=== PATIENT | female | born 1930 | race Caucasian/White ===

== ENCOUNTER 2016-11-03 19:58 | Inpatient (IN) | payer MEDICARE, BC ==
[2016-11-03] MEDS ORDERED: cefTRIAXone\\ROCEPHIN 1 GM VIAL ONE (20:50)
[2016-11-03] MEDS ORDERED: Sodium Chloride 0.9% 100 ML ONE (20:50)
[2016-11-03 20:56] LABS: #Lymphocytes 0.9 thou/uL (1.20-3.40); #Monocytes 0.8 thou/uL (0.11-0.59); #Neutrophils 7.9 thou/uL (1.40-6.50); %Basophils 0.1 % (0.0-1.0); %Eosinophils 0.3 % (0.0-10.0); %Lymphocytes 9.1 % (21.0-51.0); %Monocytes 8.3 % (0.0-10.0); Hematocrit 33.1 % (36.0-47.0); Mean Platelet Volume 6.5 fL (7.4-10.4); Red Blood Cell (RBC) Count 3.45 mill/uL (4.20-5.40); White Blood Cell (WBC) Count 9.6 thou/uL (4.8-10.8)
[2016-11-03 21:18] LABS: ALT (SGPT) 20 U/L (8-55); AST (SGOT) 30 U/L (5-34); Alkaline Phosphatase 97 U/L (40-150); Anion Gap 16 mmol/L (10-20); BUN (Urea Nitrogen) 41 mg/dL (9.8-20.1); Bilirubin, Total 0.6 mg/dL (0.2-1.2); Calc. Creatinine Clearance 0 mL/min (70-130); Carbon Dioxide 25 mmol/L (23-31); Chloride 95 mmol/L (98-107); Estimated GFR-MDRD 27; Globulin 3.4 g/dL (2.4-3.5); Lactic Acid - Sepsis 2.1 mmol/L (0.5-2.2)
--- NOTE | 2016-11-03 21:18 | RAD ---
PORTABLE AP CHEST X-RAY 11/03/16 HISTORY: Bronchitis for two days. Dyspnea. Patient diagnosed with pneumonia. COMPARISON: 04/28/16. Dual lead left subclavian cardiac pacemaking device is noted in place. There is a moderate sized rig ht pleural effusion with small left pleural effusion. There is parenchymal area of consolidation ove rlying the right hilar and infrahilar location suggesting pneumonia. Mild increased interstitial den sities are seen at the left lung base which could be related infectious process as well. The cardiac silhouette and pulmonary vasculature are within normal limits. No other interval change. IMPRESSION: 1. Moderate right and small left pleural effusions. 2. Pneumonia right hilar and infrahilar location. Followup to complete resolution is recommende d. 3. Increased interstitial densities left lung base which may also be related to infectious proc ess. POS: JEFFRY
[2016-11-03] MEDS ORDERED: Azithromycin 500 MG VIAL ONE (21:30)
[2016-11-03] MEDS ORDERED: Furosemide 40 MG/4 ML VIAL ONE (21:30)
[2016-11-03] MEDS ORDERED: Acetaminophen 325 MG TAB PO PRN (21:57)
[2016-11-03] MEDS ORDERED: HumaLOG 300 UNITS/3 ML VIAL SC PRN (21:58)
[2016-11-03] MEDS ORDERED: Dextrose 50% Abboject 50 ML SYRINGE SLOW IVP PRN (21:58)
[2016-11-03] MEDS ORDERED: Dextrose 5% in Water 1,000 ML IV PRN (21:58)
[2016-11-03] MEDS ORDERED: Ondansetron HCl/PF 4 MG/2 ML Vial IVP PRN (23:28)
[2016-11-04] MEDS ORDERED: Sodium Chloride 0.9% 10 ML ONE ×2 (00:17→05:27)
[2016-11-04 05:54] LABS: #Lymphocytes 0.8 thou/uL (1.20-3.40); #Monocytes 0.7 thou/uL (0.11-0.59); #Neutrophils 5.3 thou/uL (1.40-6.50); %Basophils 0.2 % (0.0-1.0); %Eosinophils 0.2 % (0.0-10.0); %Lymphocytes 12.1 % (21.0-51.0); %Monocytes 10.6 % (0.0-10.0); Hematocrit 29.5 % (36.0-47.0); Mean Platelet Volume 6.5 fL (7.4-10.4); Red Blood Cell (RBC) Count 3.07 mill/uL (4.20-5.40); White Blood Cell (WBC) Count 6.9 thou/uL (4.8-10.8)
[2016-11-04 06:16] LABS: Troponin I 0.044 ng/mL (< 0.028)
[2016-11-04] MEDS: Furosemide 40 MG/4 ML VIAL SLOW IVP SCH ×2 (06:21→14:15)
[2016-11-04 06:22] LABS: Anion Gap 15 mmol/L (10-20); BUN (Urea Nitrogen) 43 mg/dL (9.8-20.1); Calc. Creatinine Clearance 24 mL/min (70-130); Calcium 8.7 mg/dL (7.8-10.44); Carbon Dioxide 28 mmol/L (23-31); Chloride 94 mmol/L (98-107); Estimated GFR-MDRD 29
--- NOTE | 2016-11-04 06:25 | HP ---
DATE OF ADMISSION: 11/03/2016 CHIEF COMPLAINT: Dyspnea, cough. HISTORY OF PRESENT ILLNESS: The patient is an 86-year-old female with past medical history of diabetes mellitus type 2, hypertension, hyperlipidemia, CHF, arthritis, now came to the ER complaining of cough. Cough started approximately 4-5 days back, positive sputum production and chest congestion also. The patient went to PCP 3 days back and the patient was started on p.o. antibiotics, amoxicillin, but the cough did not get better. The patient was feeling extremely tired and having low-grade fever also. So patient was having nausea and decreased p.o. intake. So patient was taken to outside urgent care. Patient was diagnosed having possible pneumonia, so the patient was transferred here. The patient then complains of generalized chest pain from all the coughing, complains of . Denies any headache. Denies any dizziness. Denies any lightheadedness, complains of chronic lower extremity swelling. Patient also complaints of dyspnea, dyspnea even with minimal exertion also. PAST MEDICAL HISTORY: As per HPI. PAST SURGICAL HISTORY: Rectocele repair, left knee replacement, right knee replacement, pacemaker. SOCIAL HISTORY: Denies smoking, denies alcohol, denies any drugs. FAMILY HISTORY: Positive for heart problems. MEDICATIONS: Reviewed. ALLERGIES: SULFA. REVIEW OF SYSTEMS: Constitutional: Positive for low grade fever, positive for weakness. Eyes: Denies any vision problems. Ears: Denies any hearing loss. Neck: Denies any neck pain. Cardiovascular: Denies any chest pain. Respiratory: Positive for dyspnea. Positive for cough. Positive for chest congestion. Positive for sputum production. Musculoskeletal: Denies any joint deformities. Integumentary: Denies any rash. Cranial nerve system: Denies syncope, denies lightheadedness. Psychiatric: Denies anxiety. All other review of systems are reviewed and are negative. PHYSICAL EXAMINATION: CONSTITUTIONAL/VITAL SIGNS: At the time of H\T\P performed, blood pressure is 150/80, pulse ox 95%, afebrile, respiration of 18. GENERAL: The patient appears comfortable. HEENT: Pupils equal, round reactive. Teeth intact. Tongue is moist. NECK: Supple, no JVD. CARDIOVASCULAR: S1, S2 present. Regular rate and rhythm. No murmurs, no rubs , no gallops. RESPIRATORY SYSTEM: Positive for crackles. Diminished at the bases. Positive for rhonchi. MUSCULOSKELETAL: Positive for edema 1+. NEUROLOGIC: Cranial nerves system: Awake, follows commands. Speech intact. Sensory intact ABDOMEN: Soft, nontender, no guarding, no organomegaly, no masses felt. INTEGUMENT: No rashes seen. PSYCHIATRIC: Mood is appropriate at this time. LABORATORY DATA: At the time of H\T\P performed, white count 9.6, hemoglobin 11.2, platelet count 248. BMP showed sodium 132, potassium 3.9, chloride 95, CO2 of 25, BUN 41, creatinine 1.78, glucose 205. EKG pending. Troponin: Negative. BNP 2356. ASSESSMENT AND PLAN: The patient is an 86-year-old female. 1. Pneumonia. Plan to start patient on broad spectrum antibiotics. Chest x- ray did show some infiltrate. We will go ahead and start patient on IV Rocephin and IV Zithromax. We will monitor the patient closely. 2. Acute fluid overload acute on chronic congestive heart failure, possibly systolic with pleural effusions, start patient on IV diuretics. Plan to monitor the patient closely. Plan to check CT cardiac enzymes and also plan to check 2D echo also. We will go ahead and consult Cardiology. 3. History of hypertension. Monitor blood pressure. Continue blood pressure medications. 4. Chronic kidney disease stage III. Creatinine is slightly close to the baseline. We will monitor creatinine closely. Repeat BMP in a.m. 5. History of hypertension, monitor blood pressures, continue home treatments. 6. History of diabetes type 2, monitor blood sugars. We will do insulin sliding scale. Case was discussed in detail with the patient. Patient is FULL CODE. MTDD
[2016-11-04] MEDS ORDERED: Diabetic Tussin 200 MG/10 ML UDCUP PO PRN (07:30)
[2016-11-04] MEDS ORDERED: Milk Of Magnesia 30 ML UDCUP PO PRN (07:30)
[2016-11-04] MEDS ORDERED: Sodium Chloride 0.65% Nasal 44 ML BOT EA NARE PRN (07:30)
[2016-11-04] MEDS ORDERED: Loratadine 10 MG TAB PO PRN (07:30)
[2016-11-04] MEDS ORDERED: Nitroglycerin 0.4 MG TAB (25 Tab Bottle) SL PRN (07:30)
[2016-11-04] MEDS ORDERED: Mag-Al 1200 mg/1200 mg/30 ML UDCUP PO PRN (07:30)
[2016-11-04] MEDS ORDERED: Ondansetron ODT 4 MG TAB PO PRN (07:30)
[2016-11-04] MEDS ORDERED: Senokot 8.6 MG TAB PO PRN (07:30)
[2016-11-04] MEDS ORDERED: Artificial Tears 18 DROP/0.9 ML EA EYE PRN (07:30)
[2016-11-04] MEDS ORDERED: Temazepam 15 MG CAP PO PRN (07:30)
[2016-11-04] MEDS ORDERED: Chloraseptic Spray 180 ml Bottle PO PRN (07:30)
[2016-11-04] MEDS ORDERED: Loperamide HCl 2 MG CAP PO PRN (07:30)
[2016-11-04] MEDS ORDERED: Eucerin (Mineral Oil/Petrolatum,White) 30 gm Jar TOP PRN (07:30)
[2016-11-04] MEDS ORDERED: HYDROcodone/Acetaminophen 5/325 mg Tablet PO PRN (07:30)
[2016-11-04] MEDS: Pancrelipase DR 12000 1 CAP PO SCH (08:34)
[2016-11-04] MEDS: Cefepime 1 GM in Sodium Chloride 0.9% 100 ML IVPB SCH (08:36)
[2016-11-04] MEDS: Apixaban 5 MG TAB PO SCH ×2 (08:36→20:39)
[2016-11-04] MEDS: Cyanocobalamin (Vitamin B-12) 1,000 MCG TAB PO SCH (08:37)
[2016-11-04] MEDS: guaiFENesin ER 600 MG TAB PO SCH ×2 (08:38→20:40)
[2016-11-04] MEDS: Metoprolol Tartrate 50 MG TAB PO SCH ×2 (08:38→20:39)
[2016-11-04] MEDS: Ferrous Sulfate 325 MG TAB PO SCH ×2 (08:38→20:40)
[2016-11-04] MEDS ORDERED: Non-Formulary Item 1 EACH (Amiodarone Hcl [Amiodarone Hcl] 200 MG) PO SCH (09:00)
[2016-11-04] MEDS ORDERED: Non-Formulary Item 1 EACH (Cyanocobalamin (Vitamin B-12) [Vitamin B12] 5,000 MCG) PO SCH (09:00)
[2016-11-04] MEDS ORDERED: Non-Formulary Item 1 EACH (Apixaban [Eliquis] 2.5 MG) PO SCH (09:00)
[2016-11-04 09:14] VITALS: BMI 22.2
--- NOTE | 2016-11-04 09:17 | PDOC.PN ---
- Subjective Encounter Start Date: 11/04/16 Encounter Start Time: 08:00 -: old records requested/rev Patient seen and examined. No new complaints. No overnight events, less dyspnea , no fever - Objective MAR Reviewed: Yes Vital Signs & Weight: Vital Signs (12 hours) Temp Pulse Resp BP BP BP Pulse Ox 11/04/16 08:35 63 154/70 H 11/04/16 08:31 98.7 F 63 16 154/70 H 95 11/04/16 06:26 95 11/04/16 06:20 73 20 11/04/16 06:18 60 20 167/72 H 92 L 11/04/16 04:44 20 93 L 11/04/16 04:29 93 L 11/04/16 04:00 98.4 F 64 18 141/60 H 93 L 11/04/16 00:19 20 11/03/16 22:40 98.6 F 65 24 H 95 11/03/16 22:35 98.6 F 65 24 H 133/59 L 90 L Weight Admit Weight 141 lb 14.4 oz Weight 141 lb 14.4 oz I&O: 11/03/16 11/04/16 11/05/16 06:59 06:59 06:59 Intake Total 376 Output Total 700 Balance -324 Result Diagrams: 11/04/16 05:14 11/04/16 05:14 Additional Labs: Accuchecks 11/04/16 05:59 POC Glucose 140 H Radiology Reviewed by me: Yes (chest xray) EKG Reviewed by me: Yes Phys Exam - Physical Examination Constitutional: NAD HEENT: PERRLA, moist MMs, sclera anicteric Neck: no JVD, supple Respiratory: no wheezing, no rhonchi basilar rales, reduced air entry Cardiovascular: RRR, no rub SM+ Gastrointestinal: soft, non-tender, no distention, positive bowel sounds Musculoskeletal: no edema, pulses present Neurological: non-focal, normal sensation, moves all 4 limbs Psychiatric: normal affect, A&O x 3 Skin: no rash, normal turgor Dx/Plan (1) Acute on chronic diastolic (congestive) heart failure Code(s): I50.33 - ACUTE ON CHRONIC DIASTOLIC (CONGESTIVE) HEART FAILURE Status : Acute (2) Acute worsening of stage 3 chronic kidney disease Code(s): N18.3 - CHRONIC KIDNEY DISEASE, STAGE 3 (MODERATE) Status: Acute (3) Community acquired bacterial pneumonia Code(s): J15.9 - UNSPECIFIED BACTERIAL PNEUMONIA Status: Acute (4) Demand ischemia Code(s): I24.8 - OTHER FORMS OF ACUTE ISCHEMIC HEART DISEASE Status: Acute (5) Anemia, normocytic normochromic Code(s): D64.9 - ANEMIA, UNSPECIFIED Status: Chronic (6) Chronic anticoagulation Code(s): Z79.01 - FPC (CURRENT) USE OF ANTICOAGULANTS Status: Chronic (7) DM2 (diabetes mellitus, type 2) Status: Chronic (8) Dyslipidemia Code(s): E78.5 - HYPERLIPIDEMIA, UNSPECIFIED Status: Chronic (9) GERD (gastroesophageal reflux disease) Code(s): K21.9 - GASTRO-ESOPHAGEAL REFLUX DISEASE WITHOUT ESOPHAGITIS Status: Chronic (10) HTN (hypertension) Code(s): I10 - ESSENTIAL (PRIMARY) HYPERTENSION Status: Chronic (11) Moderate tricuspid regurgitation by prior echocardiogram Code(s): I07.1 - RHEUMATIC TRICUSPID INSUFFICIENCY Status: Chronic (12) Pulmonary hypertension Code(s): I27.2 - OTHER SECONDARY PULMONARY HYPERTENSION Status: Chronic - Plan cont current plan of care, continue antibiotics, respiratory therapy * continue iv lasix * continue cefepime and levaquin * monitor renal function * cardiology consulted * echo pending * medication reviewed as below * symptomatic treatment Review of Systems - Review of Systems Constitutional: Weakness. negative: Fever, Chills, Sweats, Malaise, Other Respiratory: Cough, Shortness of Breath, SOB with Excertion. negative: Dry, Hemoptysis, Pleuritic Pain, Sputum, Wheezing Cardiovascular: negative: Chest Pain, Palpitations, Orthopnea, Paroxysmal Noc. Dyspnea, Edema, Light Headedness, Other Gastrointestinal: negative: Nausea, Vomiting, Abdominal Pain, Diarrhea, Constipation, Melena, Hematochezia, Other Genitourinary: negative: Dysuria, Frequency, Incontinence, Hematuria, Retention , Other Musculoskeletal: negative: Neck Pain, Shoulder Pain, Arm Pain, Back Pain, Hand Pain, Leg Pain, Foot Pain, Other Skin: negative: Rash, Lesions, Judah, Bruising, Other - Medications/Allergies Allergies/Adverse Reactions: Allergies Allergy/AdvReac Type Severity Reaction Status Date / Time Sulfa (Sulfonamide Allergy Nausea Verified 11/03/16 22:50 Antibiotics) Medications: Current Medications Acetaminophen (Tylenol) 650 mg PO Q4H PRN PRN Reason: Headache/Fever or Pain Hydrocodone Bitart/Acetaminophen ([place] 5/325) 1 tab PO Q4H PRN PRN Reason: Moderate Pain (4-6) Al Hydroxide/Mg Hydroxide (Maalox) 15 ml PO Q4H PRN PRN Reason: Heartburn or Indigestion Albuterol/Ipratropium (Duoneb) 3 ml NEB Q4H PRN PRN Reason: Wheezing Last Admin: 11/04/16 06:20 Dose: 3 ml Albuterol/Ipratropium (Duoneb) 3 ml NEB [id number] [facility] Amiodarone HCl (Cordarone) 200 mg PO DAILY [facility] Last Admin: 11/04/16 08:35 Dose: 200 mg Amlodipine Besylate (Norvasc) 2.5 mg PO DAILY [facility] Last Admin: 11/04/16 08:35 Dose: 2.5 mg Lipase/Protease/[place]ylase ([place] [id number]) 3 cap PO DAILY-AC [facility] Last Admin: 11/04/16 08:34 Dose: 3 cap Apixaban (Eliquis) 2.5 mg PO BID [facility] Last Admin: 11/04/16 08:36 Dose: 2.5 mg Artificial Tears (Tears Naturale) 0 drop EA EYE PRN PRN PRN Reason: Dry Eyes Atorvastatin Calcium (Lipitor) 10 mg PO HS [facility] Cyanocobalamin (Vitamin B-12) 5,000 mcg PO DAILY [facility] Last Admin: 11/04/16 08:37 Dose: 5,000 mcg Dextrose/Water (Dextrose 50%) 25 gm SLOW IVP PRN PRN PRN Reason: Hypoglycemia Ferrous Sulfate (Feosol) 325 mg PO BID [facility] Last Admin: 11/04/16 08:38 Dose: 325 mg Furosemide (Lasix) 40 mg SLOW IVP 0600,1400 [facility] Last Admin: 11/04/16 06:21 Dose: 40 mg Glucagon (Glucagon) 1 mg IM PRN PRN PRN Reason: Hypoglycemia Guaifenesin (Robitussin Sf) 200 mg PO Q4H PRN PRN Reason: Cough Guaifenesin (Mucinex) 600 mg PO Q12HR [facility] Last Admin: 11/04/16 08:38 Dose: 600 mg Hydralazine HCl (Apresoline) 10 mg SLOW IVP Q4H PRN PRN Reason: Systolic BP > 180 Cefepime HCl 1 gm/ Sodium (Chloride) 100 mls @ 200 mls/hr IVPB 0900 [facility] Last Admin: 11/04/16 08:36 Dose: 100 mls Dextrose/Water (D5w) 1,000 mls @ 0 mls/hr IV .Q0M PRN; As Directed PRN Reason: Hypoglycemia Levofloxacin 750 mg/ Device 150 mls @ 100 mls/hr IVPB Q48H [facility] Last Admin: 11/04/16 00:19 Dose: 150 mls Insulin Human Lispro (Humalog) 0 units SC .MODERATE SLIDING SC PRN PRN Reason: Moderate Correctional Scale Insulin Human Lispro (Humalog) 0 units SC .BEDTIME SLIDING SC PRN PRN Reason: Bedtime Correctional Scale Loperamide HCl (Imodium) 2 mg PO PRN PRN PRN Reason: Diarrhea/Loose Stools Loratadine (Claritin) 10 mg PO DAILYPRN PRN PRN Reason: Sinus Symptoms Magnesium Hydroxide (Milk Of Magnesium) 30 ml PO DAILYPRN PRN PRN Reason: Constipation Metoprolol Tartrate (Lopressor) 50 mg PO BID [facility] Last Admin: 11/04/16 08:38 Dose: 50 mg Mineral Oil/White Petrolatum (Eucerin Cream) 0 gm TOP BIDPRN PRN PRN Reason: Dry Skin Nitroglycerin (Nitrostat) 0.4 mg SL Q5MIN PRN PRN Reason: Chest Pain Ondansetron HCl (Zofran) 4 mg IVP Q6H PRN PRN Reason: Nausea/Vomiting Last Admin: 11/04/16 00:18 Dose: 4 mg Ondansetron HCl (Zofran Odt) 4 mg PO Q6H PRN PRN Reason: Nausea/Vomiting Pantoprazole Sodium (Protonix) 40 mg PO DAILY [facility] Last Admin: 11/04/16 08:38 Dose: 40 mg Phenol (Chloraseptic [place] 180 Ml Bot) 0 ml PO PRN PRN PRN Reason: Sore Throat Senna (Senokot) 2 tab PO HSPRN PRN PRN Reason: Constipation Sodium Chloride ([place] Nasal [place] 0.65%) 0 ml EA NARE QIDPRN PRN PRN Reason: Nasal Congestion Sodium Chloride (Flush - Normal Saline) 10 ml IVF Q12HR [facility] Last Admin: 11/04/16 08:39 Dose: 10 ml Sodium Chloride (Flush - Normal Saline) 10 ml IVF PRN PRN PRN Reason: Saline Flush Temazepam (Restoril) 15 mg PO HSPRN PRN PRN Reason: Insomnia
[2016-11-04 10:25] LABS: Troponin I 0.045 ng/mL (< 0.028)
[2016-11-04] MEDS: Atorvastatin Calcium 10 MG TAB PO SCH (20:40)
[2016-11-05] MEDS: Furosemide 40 MG/4 ML VIAL SLOW IVP SCH (05:08)
[2016-11-05 05:43] LABS: #Eosinphils 0.1 thou/uL (0.0-0.7); #Lymphocytes 0.9 thou/uL (1.20-3.40); #Monocytes 0.9 thou/uL (0.11-0.59); #Neutrophils 5.1 thou/uL (1.40-6.50); %Basophils 0.1 % (0.0-1.0); %Eosinophils 1.4 % (0.0-10.0); %Monocytes 12.3 % (0.0-10.0); Hematocrit 29.4 % (36.0-47.0); Mean Platelet Volume 6.5 fL (7.4-10.4); Red Blood Cell (RBC) Count 3.05 mill/uL (4.20-5.40)
[2016-11-05 06:05] LABS: ALT (SGPT) 16 U/L (8-55); AST (SGOT) 25 U/L (5-34); Alkaline Phosphatase 75 U/L (40-150); Anion Gap 14 mmol/L (10-20); BUN (Urea Nitrogen) 46 mg/dL (9.8-20.1); Bilirubin, Total 0.4 mg/dL (0.2-1.2); Calc. Creatinine Clearance 21 mL/min (70-130); Calcium 8.5 mg/dL (7.8-10.44); Carbon Dioxide 29 mmol/L (23-31); Chloride 95 mmol/L (98-107); Estimated GFR-MDRD 25; Globulin 2.8 g/dL (2.4-3.5); Magnesium 1.5 mg/dL (1.6-2.6); Phosphorus 3.8 mg/dL (2.3-4.7); Protein, Total 5.8 g/dL (6.0-8.3)
[2016-11-05] MEDS ORDERED: Potassium Chloride 40 MEQ in Sodium Chloride 0.9% 500 ML IVPB SCH (06:45)
[2016-11-05] MEDS ORDERED: Potassium Chloride 20 MEQ TAB PO SCH (06:45)
[2016-11-05] MEDS: Pancrelipase DR 12000 1 CAP PO SCH (08:14)
[2016-11-05] MEDS: Cefepime 1 GM in Sodium Chloride 0.9% 100 ML IVPB SCH (08:16)
[2016-11-05] MEDS: Apixaban 5 MG TAB PO SCH ×2 (08:16→20:04)
[2016-11-05] MEDS: Cyanocobalamin (Vitamin B-12) 1,000 MCG TAB PO SCH (08:17)
[2016-11-05] MEDS: guaiFENesin ER 600 MG TAB PO SCH ×2 (08:17→20:05)
[2016-11-05] MEDS: Ferrous Sulfate 325 MG TAB PO SCH ×2 (08:17→20:04)
[2016-11-05] MEDS: Metoprolol Tartrate 50 MG TAB PO SCH ×2 (08:17→20:05)
--- NOTE | 2016-11-05 09:42 | PDOC.PN ---
- Subjective Encounter Start Date: 11/05/16 Encounter Start Time: 09:00 Patient seen and examined. No new complaints. No overnight events, pt feels better today - Objective MAR Reviewed: Yes Vital Signs & Weight: Vital Signs (12 hours) Temp Pulse Resp BP BP Pulse Ox 11/05/16 08:15 72 167/71 H 11/05/16 08:01 98.0 F 72 18 167/71 H 94 L 11/05/16 07:20 99 11/05/16 07:18 70 16 11/05/16 04:00 98.0 F 73 16 124/58 L 96 11/05/16 00:40 92 L 11/05/16 00:00 98.2 F 64 16 119/56 L 95 11/04/16 22:36 75 16 92 L Weight Admit Weight 141 lb 6.4 oz Weight 139 lb I&O: 11/04/16 11/05/16 11/06/16 06:59 06:59 06:59 Intake Total 376 940 Output Total 700 1700 Balance -324 -760 Result Diagrams: 11/05/16 04:59 11/05/16 04:59 Additional Labs: Accuchecks 11/05/16 11/04/16 11/04/16 05:51 20:45 16:53 POC Glucose 99 308 H 176 H 11/04/16 11:35 POC Glucose 167 H Radiology Reviewed by me: Yes EKG Reviewed by me: Yes Dx/Plan (1) Acute on chronic diastolic (congestive) heart failure Code(s): I50.33 - ACUTE ON CHRONIC DIASTOLIC (CONGESTIVE) HEART FAILURE Status : Acute (2) Acute worsening of stage 3 chronic kidney disease Code(s): N18.3 - CHRONIC KIDNEY DISEASE, STAGE 3 (MODERATE) Status: Acute (3) Community acquired bacterial pneumonia Code(s): J15.9 - UNSPECIFIED BACTERIAL PNEUMONIA Status: Acute (4) Demand ischemia Code(s): I24.8 - OTHER FORMS OF ACUTE ISCHEMIC HEART DISEASE Status: Acute (5) Anemia, normocytic normochromic Code(s): D64.9 - ANEMIA, UNSPECIFIED Status: Chronic (6) Chronic anticoagulation Code(s): Z79.01 - RETIREMENT (CURRENT) USE OF ANTICOAGULANTS Status: Chronic (7) DM2 (diabetes mellitus, type 2) Status: Chronic (8) Dyslipidemia Code(s): E78.5 - HYPERLIPIDEMIA, UNSPECIFIED Status: Chronic (9) GERD (gastroesophageal reflux disease) Code(s): K21.9 - GASTRO-ESOPHAGEAL REFLUX DISEASE WITHOUT ESOPHAGITIS Status: Chronic (10) HTN (hypertension) Code(s): I10 - ESSENTIAL (PRIMARY) HYPERTENSION Status: Chronic (11) Moderate tricuspid regurgitation by prior echocardiogram Code(s): I07.1 - RHEUMATIC TRICUSPID INSUFFICIENCY Status: Chronic (12) Pulmonary hypertension Code(s): I27.2 - OTHER SECONDARY PULMONARY HYPERTENSION Status: Chronic (13) Hypokalemia Code(s): E87.6 - HYPOKALEMIA Status: Acute - Plan cont current plan of care, continue antibiotics, PT/OT, respiratory therapy * replace potassium today * today will change to po lasix * will monitor renal function * echo pending result * will continue current antibiotics * will repeat chest xray on monday * start PT * wean off oxygen as needed * medication reviewed as below * symptomatic treatment. Review of Systems - Review of Systems Constitutional: negative: Fever, Chills, Sweats, Weakness, Malaise, Other ENT: negative: Ear Pain, Ear Discharge, Nose Pain, Nose Discharge, Nose Congestion, Mouth Pain, Mouth Swelling, Throat Pain, Throat Swelling, Other Respiratory: Shortness of Breath, SOB with Excertion. negative: Cough, Dry, Hemoptysis, Pleuritic Pain, Sputum, Wheezing Cardiovascular: negative: Chest Pain, Palpitations, Orthopnea, Paroxysmal Noc. Dyspnea, Edema, Light Headedness, Other Gastrointestinal: negative: Nausea, Vomiting, Abdominal Pain, Diarrhea, Constipation, Melena, Hematochezia, Other Genitourinary: negative: Dysuria, Frequency, Incontinence, Hematuria, Retention , Other Musculoskeletal: negative: Neck Pain, Shoulder Pain, Arm Pain, Back Pain, Hand Pain, Leg Pain, Foot Pain, Other - Medications/Allergies Allergies/Adverse Reactions: Allergies Allergy/AdvReac Type Severity Reaction Status Date / Time Sulfa (Sulfonamide Allergy Nausea Verified 11/03/16 22:50 Antibiotics) Medications: Current Medications Acetaminophen (Tylenol) 650 mg PO Q4H PRN PRN Reason: Headache/Fever or Pain Hydrocodone Bitart/Acetaminophen ([place] 5/325) 1 tab PO Q4H PRN PRN Reason: Moderate Pain (4-6) Al Hydroxide/Mg Hydroxide (Maalox) 15 ml PO Q4H PRN PRN Reason: Heartburn or Indigestion Albuterol/Ipratropium (Duoneb) 3 ml NEB Q4H PRN PRN Reason: Wheezing Last Admin: 11/04/16 06:20 Dose: 3 ml Albuterol/Ipratropium (Duoneb) 3 ml NEB [id number] [facility] Last Admin: 11/05/16 07:18 Dose: 3 ml Amiodarone HCl (Cordarone) 200 mg PO DAILY [facility] Last Admin: 11/05/16 08:15 Dose: 200 mg Amlodipine Besylate (Norvasc) 2.5 mg PO DAILY [facility] Last Admin: 11/05/16 08:15 Dose: 2.5 mg Lipase/Protease/Amylase ([place] [id number]) 3 cap PO DAILY-[facility] Last Admin: 11/05/16 08:14 Dose: 3 cap Apixaban (Eliquis) 2.5 mg PO BID [facility] Last Admin: 11/05/16 08:16 Dose: 2.5 mg Artificial Tears (Tears Naturale) 0 drop EA EYE PRN PRN PRN Reason: Dry Eyes Atorvastatin Calcium (Lipitor) 10 mg PO HS [facility] Last Admin: 11/04/16 20:40 Dose: 10 mg Cyanocobalamin (Vitamin B-12) 5,000 mcg PO DAILY [facility] Last Admin: 11/05/16 08:17 Dose: 5,000 mcg Dextrose/Water (Dextrose 50%) 25 gm SLOW IVP PRN PRN PRN Reason: Hypoglycemia Ferrous Sulfate (Feosol) 325 mg PO BID [facility] Last Admin: 11/05/16 08:17 Dose: 325 mg Furosemide (Lasix) 40 mg PO DAILY-[facility] Glucagon (Glucagon) 1 mg IM PRN PRN PRN Reason: Hypoglycemia Guaifenesin (Robitussin Sf) 200 mg PO Q4H PRN PRN Reason: Cough Guaifenesin (Mucinex) 600 mg PO Q12HR [facility] Last Admin: 11/05/16 08:17 Dose: 600 mg Hydralazine HCl (Apresoline) 10 mg SLOW IVP Q4H PRN PRN Reason: Systolic BP > 180 Cefepime HCl 1 gm/ Sodium (Chloride) 100 mls @ 200 mls/hr IVPB 0900 [facility] Last Admin: 11/05/16 08:16 Dose: 100 mls Dextrose/Water (D5w) 1,000 mls @ 0 mls/hr IV .Q0M PRN; As Directed PRN Reason: Hypoglycemia Levofloxacin 750 mg/ Device 150 mls @ 100 mls/hr IVPB Q48H [facility] Last Admin: 11/04/16 00:19 Dose: 150 mls Potassium Chloride 40 meq/ (Sodium Chloride) 520 mls @ 130 mls/hr IVPB NOW [facility] Stop: 11/05/16 12:00 Last Admin: 11/05/16 07:22 Dose: 520 mls Insulin Human Lispro (Humalog) 0 units SC .MODERATE SLIDING SC PRN PRN Reason: Moderate Correctional Scale Insulin Human Lispro (Humalog) 0 units SC .BEDTIME SLIDING SC PRN PRN Reason: Bedtime Correctional Scale Last Admin: 11/04/16 21:18 Dose: 4 unit Loperamide HCl (Imodium) 2 mg PO PRN PRN PRN Reason: Diarrhea/Loose Stools Loratadine (Claritin) 10 mg PO DAILYPRN PRN PRN Reason: Sinus Symptoms Magnesium Hydroxide (Milk Of Magnesium) 30 ml PO DAILYPRN PRN PRN Reason: Constipation Metoprolol Tartrate (Lopressor) 50 mg PO BID [facility] Last Admin: 11/05/16 08:17 Dose: 50 mg Mineral Oil/White Petrolatum (Eucerin Cream) 0 gm TOP BIDPRN PRN PRN Reason: Dry Skin Nitroglycerin (Nitrostat) 0.4 mg SL Q5MIN PRN PRN Reason: Chest Pain Ondansetron HCl (Zofran) 4 mg IVP Q6H PRN PRN Reason: Nausea/Vomiting Last Admin: 11/04/16 00:18 Dose: 4 mg Ondansetron HCl (Zofran Odt) 4 mg PO Q6H PRN PRN Reason: Nausea/Vomiting Pantoprazole Sodium (Protonix) 40 mg PO DAILY [facility] Last Admin: 11/05/16 08:17 Dose: 40 mg Phenol (Chloraseptic [place] 180 Ml Bot) 0 ml PO PRN PRN PRN Reason: Sore Throat Senna (Senokot) 2 tab PO HSPRN PRN PRN Reason: Constipation Sodium Chloride ([place] Nasal [place] 0.65%) 0 ml EA NARE QIDPRN PRN PRN Reason: Nasal Congestion Sodium Chloride (Flush - Normal Saline) 10 ml IVF Q12HR [facility] Last Admin: 11/05/16 08:17 Dose: Not Given Sodium Chloride (Flush - Normal Saline) 10 ml IVF PRN PRN PRN Reason: Saline Flush Temazepam (Restoril) 15 mg PO HSPRN PRN PRN Reason: Insomnia
[2016-11-05] MEDS: HumaLOG 300 UNITS/3 ML VIAL SC PRN (12:26)
--- NOTE | 2016-11-05 18:11 | PDOC.CTH ---
Cardiology Progress Note - Subjective Much better since admission. No CV complaints today. Denies dyspnea. Tolerating meds. Anxious to return home this weekend. ROS otherwise negative. - Objective Vital Signs Temp Pulse Pulse Pulse Resp BP BP 11/05/16 16:25 98.6 F 73 16 11/05/16 14:19 74 16 11/05/16 11:14 98.0 F 64 16 11/05/16 10:44 73 86 170/72 H 11/05/16 08:15 72 167/71 H 11/05/16 08:01 98.0 F 72 18 11/05/16 07:20 11/05/16 07:18 70 16 BP BP Pulse Ox Pulse Ox Pulse Ox 11/05/16 16:25 152/68 H 97 11/05/16 14:19 11/05/16 11:14 184/73 H 94 L 11/05/16 10:44 196/77 H 92 L 97 11/05/16 08:15 11/05/16 08:01 167/71 H 94 L 11/05/16 07:20 99 11/05/16 07:18 Admit Weight 141 lb 6.4 oz Weight 139 lb 11/04/16 11/05/16 11/06/16 06:59 06:59 06:59 Intake Total 376 940 Output Total 700 1700 Balance -324 -760 - Physical Examination General/Neuro: alert & oriented x3, NAD Neck: carotid US brisk, no JVD present Lungs: CTA, unlabored respirations Heart: PMI normal, RRR Abdomen: no HSM, NT/ND, soft Extremities: other: (2+ pulses, no edema) Other PE findings: Neuro: no focal motor defs - Telemetry Telemetry Rhythm: sinus rhythm - Labs Result Diagrams: 11/05/16 04:59 11/05/16 04:59 Troponin/CKMB Troponin I 0.045 ng/mL (< 0.028) H 11/04/16 09:51 - Assessment/Plan 1. CAP: improved on abx. Continue as recommended by primary service. 2. CHF, acute/chronic diastolic: stable. Appears dry. Will adjust diuretics accordingly. Monitor lytes/renal function. 3. PAF: stable on amiodarone. Continue at current dose with anticoagulation.
[2016-11-05] MEDS: Atorvastatin Calcium 10 MG TAB PO SCH (20:04)
[2016-11-06] MEDS: Pancrelipase DR 12000 1 CAP PO SCH (08:24)
[2016-11-06] MEDS: Cyanocobalamin (Vitamin B-12) 1,000 MCG TAB PO SCH (08:24)
[2016-11-06] MEDS: Metoprolol Tartrate 50 MG TAB PO SCH ×2 (08:25→20:50)
[2016-11-06] MEDS: Furosemide 40 MG TAB PO SCH (08:25)
[2016-11-06] MEDS: Apixaban 5 MG TAB PO SCH ×2 (08:25→20:50)
[2016-11-06] MEDS: Ferrous Sulfate 325 MG TAB PO SCH ×2 (08:26→20:50)
[2016-11-06] MEDS: guaiFENesin ER 600 MG TAB PO SCH ×2 (08:26→20:50)
[2016-11-06] MEDS: Cefepime 1 GM in Sodium Chloride 0.9% 100 ML IVPB SCH (08:26)
--- NOTE | 2016-11-06 10:27 | PDOC.PN ---
- Subjective Encounter Start Date: 11/06/16 Encounter Start Time: 07:50 -: old records requested/rev Patient seen and examined. No new complaints. No overnight events - Objective MAR Reviewed: Yes Vital Signs & Weight: Vital Signs (12 hours) Temp Pulse Resp BP BP Pulse Ox 11/06/16 08:26 63 11/06/16 08:18 97.9 F 63 14 163/70 H 93 L 11/06/16 06:58 99 11/06/16 06:56 71 20 11/06/16 04:00 97.6 F 60 18 141/65 H 97 11/05/16 23:53 99.0 F 60 18 133/63 94 L 11/05/16 23:17 94 L 11/05/16 23:16 73 16 94 L Weight Admit Weight 141 lb 6.4 oz Weight 138 lb 1.6 oz I&O: 11/05/16 11/06/16 11/07/16 06:59 06:59 06:59 Intake Total 940 1980 Output Total 1700 1820 Balance -760 160 Result Diagrams: 11/05/16 04:59 11/05/16 04:59 Additional Labs: Accuchecks 11/06/16 11/05/16 11/05/16 05:20 20:51 16:41 POC Glucose 147 H 188 H 126 H 11/05/16 11:19 POC Glucose 217 H Phys Exam - Physical Examination Constitutional: NAD HEENT: PERRLA, moist MMs, sclera anicteric Neck: no JVD, supple Respiratory: no wheezing, no rales, no rhonchi Cardiovascular: RRR, no significant murmur, no rub Gastrointestinal: soft, non-tender, no distention, positive bowel sounds Musculoskeletal: no edema, pulses present Neurological: non-focal, normal sensation Psychiatric: normal affect, A&O x 3 Skin: no rash, normal turgor Dx/Plan (1) Acute on chronic diastolic (congestive) heart failure Code(s): I50.33 - ACUTE ON CHRONIC DIASTOLIC (CONGESTIVE) HEART FAILURE Status : Acute (2) Acute worsening of stage 3 chronic kidney disease Code(s): N18.3 - CHRONIC KIDNEY DISEASE, STAGE 3 (MODERATE) Status: Acute (3) Community acquired bacterial pneumonia Code(s): J15.9 - UNSPECIFIED BACTERIAL PNEUMONIA Status: Acute (4) Demand ischemia Code(s): I24.8 - OTHER FORMS OF ACUTE ISCHEMIC HEART DISEASE Status: Acute (5) Anemia, normocytic normochromic Code(s): D64.9 - ANEMIA, UNSPECIFIED Status: Chronic (6) Chronic anticoagulation Code(s): Z79.01 - CARE HOME (CURRENT) USE OF ANTICOAGULANTS Status: Chronic (7) DM2 (diabetes mellitus, type 2) Status: Chronic (8) Dyslipidemia Code(s): E78.5 - HYPERLIPIDEMIA, UNSPECIFIED Status: Chronic (9) GERD (gastroesophageal reflux disease) Code(s): K21.9 - GASTRO-ESOPHAGEAL REFLUX DISEASE WITHOUT ESOPHAGITIS Status: Chronic (10) HTN (hypertension) Code(s): I10 - ESSENTIAL (PRIMARY) HYPERTENSION Status: Chronic (11) 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 * will repeat chest xray tomorrow * she may need snu on discharge Review of Systems - Review of Systems ENT: negative: Ear Pain, Ear Discharge, Nose Pain, Nose Discharge, Nose Congestion, Mouth Pain, Mouth Swelling, Throat Pain, Throat Swelling, Other Respiratory: negative: Cough, Dry, Shortness of Breath, Hemoptysis, SOB with Excertion, Pleuritic Pain, Sputum, Wheezing Cardiovascular: negative: Chest Pain, Palpitations, Orthopnea, Paroxysmal Noc. Dyspnea, Edema, Light Headedness, Other Gastrointestinal: negative: Nausea, Vomiting, Abdominal Pain, Diarrhea, Constipation, Melena, Hematochezia, Other Genitourinary: negative: Dysuria, Frequency, Incontinence, Hematuria, Retention , Other Musculoskeletal: negative: Neck Pain, Shoulder Pain, Arm Pain, Back Pain, Hand Pain, Leg Pain, Foot Pain, Other - Medications/Allergies Allergies/Adverse Reactions: Allergies Allergy/AdvReac Type Severity Reaction Status Date / Time Sulfa (Sulfonamide Allergy Nausea Verified 11/03/16 22:50 Antibiotics) Medications: Current Medications Acetaminophen (Tylenol) 650 mg PO Q4H PRN PRN Reason: Headache/Fever or Pain Hydrocodone Bitart/Acetaminophen ([place] 5/325) 1 tab PO Q4H PRN PRN Reason: Moderate Pain (4-6) Al Hydroxide/Mg Hydroxide (Maalox) 15 ml PO Q4H PRN PRN Reason: Heartburn or Indigestion Albuterol/Ipratropium (Duoneb) 3 ml NEB Q4H PRN PRN Reason: Wheezing Last Admin: 11/04/16 06:20 Dose: 3 ml Albuterol/Ipratropium (Duoneb) 3 ml NEB [id number] [facility] Last Admin: 11/06/16 06:56 Dose: 3 ml Amiodarone HCl (Cordarone) 200 mg PO DAILY [facility] Last Admin: 11/06/16 08:25 Dose: 200 mg Amlodipine Besylate (Norvasc) 2.5 mg PO DAILY [facility] Last Admin: 11/06/16 08:26 Dose: 2.5 mg Lipase/Protease/[place]ylase ([place] [id number]) 3 cap PO DAILY-[facility] Last Admin: 11/06/16 08:24 Dose: 3 cap Apixaban (Eliquis) 2.5 mg PO BID [facility] Last Admin: 11/06/16 08:25 Dose: 2.5 mg Artificial Tears (Tears Naturale) 0 drop EA EYE PRN PRN PRN Reason: Dry Eyes Atorvastatin Calcium (Lipitor) 10 mg PO HS [facility] Last Admin: 11/05/16 20:04 Dose: 10 mg Cyanocobalamin (Vitamin B-12) 5,000 mcg PO DAILY [facility] Last Admin: 11/06/16 08:24 Dose: 5,000 mcg Dextrose/Water (Dextrose 50%) 25 gm SLOW IVP PRN PRN PRN Reason: Hypoglycemia Ferrous Sulfate (Feosol) 325 mg PO BID [facility] Last Admin: 11/06/16 08:26 Dose: 325 mg Furosemide (Lasix) 40 mg PO DAILY-[facility] Last Admin: 11/06/16 08:25 Dose: 40 mg Glucagon (Glucagon) 1 mg IM PRN PRN PRN Reason: Hypoglycemia Guaifenesin (Robitussin Sf) 200 mg PO Q4H PRN PRN Reason: Cough Guaifenesin (Mucinex) 600 mg PO Q12HR [facility] Last Admin: 11/06/16 08:26 Dose: 600 mg Hydralazine HCl (Apresoline) 10 mg SLOW IVP Q4H PRN PRN Reason: Systolic BP > 180 Cefepime HCl 1 gm/ Sodium (Chloride) 100 mls @ 200 mls/hr IVPB 0900 [facility] Last Admin: 11/06/16 08:26 Dose: 100 mls Dextrose/Water (D5w) 1,000 mls @ 0 mls/hr IV .Q0M PRN; As Directed PRN Reason: Hypoglycemia Levofloxacin 750 mg/ Device 150 mls @ 100 mls/hr IVPB Q48H [facility] Last Admin: 11/05/16 23:14 Dose: 150 mls Insulin Human Lispro (Humalog) 0 units SC .MODERATE SLIDING SC PRN PRN Reason: Moderate Correctional Scale Last Admin: 11/05/16 12:26 Dose: 4 units Insulin Human Lispro (Humalog) 0 units SC .BEDTIME SLIDING SC PRN PRN Reason: Bedtime Correctional Scale Last Admin: 11/04/16 21:18 Dose: 4 unit Loperamide HCl (Imodium) 2 mg PO PRN PRN PRN Reason: Diarrhea/Loose Stools Loratadine (Claritin) 10 mg PO DAILYPRN PRN PRN Reason: Sinus Symptoms Magnesium Hydroxide (Milk Of Magnesium) 30 ml PO DAILYPRN PRN PRN Reason: Constipation Metoprolol Tartrate (Lopressor) 50 mg PO BID [facility] Last Admin: 11/06/16 08:25 Dose: 50 mg Mineral Oil/White Petrolatum (Eucerin Cream) 0 gm TOP BIDPRN PRN PRN Reason: Dry Skin Nitroglycerin (Nitrostat) 0.4 mg SL Q5MIN PRN PRN Reason: Chest Pain Ondansetron HCl (Zofran) 4 mg IVP Q6H PRN PRN Reason: Nausea/Vomiting Last Admin: 11/04/16 00:18 Dose: 4 mg Ondansetron HCl (Zofran Odt) 4 mg PO Q6H PRN PRN Reason: Nausea/Vomiting Pantoprazole Sodium (Protonix) 40 mg PO DAILY [facility] Last Admin: 11/06/16 08:25 Dose: 40 mg Phenol (Chloraseptic Barrett 180 Ml Bot) 0 ml PO PRN PRN PRN Reason: Sore Throat Pneumococcal Polyvalent Vaccine (Pneumovax 23) 0.5 ml IM .ONCE ONE Stop: 11/06/16 21:01 Senna (Senokot) 2 tab PO HSPRN PRN PRN Reason: Constipation Sodium Chloride ([place] Nasal Barrett 0.65%) 0 ml EA NARE QIDPRN PRN PRN Reason: Nasal Congestion Sodium Chloride (Flush - Normal Saline) 10 ml IVF Q12HR [facility] Last Admin: 11/06/16 08:27 Dose: 10 ml Sodium Chloride (Flush - Normal Saline) 10 ml IVF PRN PRN PRN Reason: Saline Flush Temazepam (Restoril) 15 mg PO HSPRN PRN PRN Reason: Insomnia
[2016-11-06] MEDS: HumaLOG 300 UNITS/3 ML VIAL SC PRN (12:29)
[2016-11-06] MEDS: Atorvastatin Calcium 10 MG TAB PO SCH (20:50)
[2016-11-06] MEDS ORDERED: FLU VACC TS2017-18 (>65YR) 0.5 ML SYRINGE IM ONE (21:00)
[2016-11-07] MEDS: Cyanocobalamin (Vitamin B-12) 1,000 MCG TAB PO SCH (08:15)
[2016-11-07] MEDS: Pancrelipase DR 12000 1 CAP PO SCH (08:16)
[2016-11-07] MEDS: Ferrous Sulfate 325 MG TAB PO SCH ×2 (08:16→22:15)
[2016-11-07] MEDS: Apixaban 5 MG TAB PO SCH ×2 (08:16→22:14)
[2016-11-07] MEDS: Furosemide 40 MG TAB PO SCH (08:16)
[2016-11-07] MEDS: Metoprolol Tartrate 50 MG TAB PO SCH ×2 (08:17→22:15)
[2016-11-07] MEDS: guaiFENesin ER 600 MG TAB PO SCH ×2 (08:17→22:15)
[2016-11-07] MEDS: Cefepime 1 GM in Sodium Chloride 0.9% 100 ML IVPB SCH (08:18)
--- NOTE | 2016-11-07 08:23 | RAD ---
PA AND LATERAL CHEST XRAY: DATE: 11/07/16. HISTORY: Pneumonia. [place] 11/03/16. FINDINGS: There is a moderately large right pleural effusion which does appear mildly increased from the prior study. Small left pleural effusion and atelectasis is present. The parenchymal and interstitial o pacities at the right lung base are less well delineated, some of which could be related to obscurat ion due to the moderately large right pleural effusion. Interstitial densities at the left lung bas e and the left mid lung zone have mildly improved. There has also been interval improvement in pulm onary vascular congestion. Right cardiac border is obscured. Dual-lead left subclavian cardiac pac emaking device remains in place. No other interval change. IMPRESSION: 1. Moderately large right pleural effusion with small left pleural effusion and associated passive atelectasis. The parenchymal opacities in the right hilar and infrahilar region are not seen and ma y be partially obscured due to interval enlargement of the right pleural effusion. 2. Improvement in pulmonary vascular congestion and interstitial densities at the left lung base. POS: JEFFRY
--- NOTE | 2016-11-07 08:36 | PDOC.PN ---
- Subjective Encounter Start Date: 11/07/16 Encounter Start Time: 08:29 Subjective: no sob, or chest pain - Objective MAR Reviewed: Yes Vital Signs & Weight: Vital Signs (12 hours) Temp Pulse Resp BP Pulse Ox 11/07/16 07:11 79 16 97 11/07/16 04:00 98.2 F 63 18 146/68 H 93 L 11/07/16 00:00 97.7 F 63 18 167/69 H 93 L 11/06/16 23:08 93 L 11/06/16 23:07 93 L 11/06/16 21:00 97.9 F 66 20 172/74 H 93 L Weight Admit Weight 141 lb 6.4 oz Weight 137 lb 4.8 oz I&O: 11/06/16 11/07/16 11/08/16 06:59 06:59 06:59 Intake Total 1980 1060 Output Total 1820 1700 Balance 160 -640 Result Diagrams: 11/05/16 04:59 11/05/16 04:59 Additional Labs: Accuchecks 11/07/16 11/06/16 11/06/16 06:10 20:41 16:56 POC Glucose 151 H 207 H 158 H 11/06/16 11:07 POC Glucose 242 H Radiology Reviewed by me: Yes (cxr- bilat pleural effusions, improved aeration) Phys Exam - Physical Examination Constitutional: NAD Neck: no JVD good aeration, scattered rales Cardiovascular: RRR, no significant murmur Gastrointestinal: soft, positive bowel sounds Musculoskeletal: no edema Dx/Plan (1) Acute on chronic diastolic (congestive) heart failure Code(s): I50.33 - ACUTE ON CHRONIC DIASTOLIC (CONGESTIVE) HEART FAILURE Status : Acute (2) Acute worsening of stage 3 chronic kidney disease Code(s): N18.3 - CHRONIC KIDNEY DISEASE, STAGE 3 (MODERATE) Status: Acute (3) Community acquired bacterial pneumonia Code(s): J15.9 - UNSPECIFIED BACTERIAL PNEUMONIA Status: Acute (4) Demand ischemia Code(s): I24.8 - OTHER FORMS OF ACUTE ISCHEMIC HEART DISEASE Status: Acute (5) Hypokalemia Code(s): E87.6 - HYPOKALEMIA Status: Acute (6) Anemia, normocytic normochromic Code(s): D64.9 - ANEMIA, UNSPECIFIED Status: Chronic (7) Chronic anticoagulation Code(s): Z79.01 - USP (CURRENT) USE OF ANTICOAGULANTS Status: Chronic (8) DM2 (diabetes mellitus, type 2) Status: Chronic Qualifiers: Diabetes mellitus complication status: with kidney complications Diabetes mellitus complication detail: with chronic kidney disease Chronic kidney disease stage: stage 3 (moderate) (9) Dyslipidemia Code(s): E78.5 - HYPERLIPIDEMIA, UNSPECIFIED Status: Chronic (10) GERD (gastroesophageal reflux disease) Code(s): K21.9 - GASTRO-ESOPHAGEAL REFLUX DISEASE WITHOUT ESOPHAGITIS Status: Chronic (11) HTN (hypertension) Code(s): I10 - ESSENTIAL (PRIMARY) HYPERTENSION Status: Chronic (12) Moderate tricuspid regurgitation by prior echocardiogram Code(s): I07.1 - RHEUMATIC TRICUSPID INSUFFICIENCY Status: Chronic (13) Pulmonary hypertension Code(s): I27.2 - OTHER SECONDARY PULMONARY HYPERTENSION Status: Chronic - Plan DC IV antibx, start omnicef po -: check BMP -: discuss with cardiology * .
[2016-11-07 09:35] LABS: Anion Gap 16 mmol/L (10-20); BUN (Urea Nitrogen) 41 mg/dL (9.8-20.1); Calc. Creatinine Clearance 20 mL/min (70-130); Calcium 8.9 mg/dL (7.8-10.44); Carbon Dioxide 25 mmol/L (23-31); Chloride 97 mmol/L (98-107); Estimated GFR-MDRD 23
[2016-11-07] MEDS: Cefdinir 300 MG CAP PO SCH ×2 (10:00→22:15)
[2016-11-07] MEDS: HumaLOG 300 UNITS/3 ML VIAL SC PRN (12:31)
[2016-11-07] MEDS: Atorvastatin Calcium 10 MG TAB PO SCH (22:15)
--- NOTE | 2016-11-08 08:31 | CON ---
DATE OF CONSULTATION: 11/04/2016 REASON FOR CONSULTATION: Shortness of breath and recent diagnosis of pneumonia. REFERRING PROVIDER: Dr. Toussaint. HISTORY OF PRESENT ILLNESS: Ms. Fisher is a very pleasant 86-year-old woman who I have seen and desiree luated in the past. She has a history of diabetes mellitus, hypertension, hyperlipidemia, and previ ous tobacco abuse. She recently presented with shortness of breath. She has had cough with mild santo bjective fevers. She was recently diagnosed with pneumonia and transferred to [place] for furthe r recommendation. PAST MEDICAL HISTORY: As above including diastolic heart failure. PAST SURGICAL HISTORY: Rectocele repair, left knee surgery, right knee surgery, pacemaker implantat ion. FAMILY HISTORY: Positive for CAD. ALLERGIES: SULFA. HOME MEDICATIONS: Include Nexium, losartan, Lasix, Eliquis, amiodarone, insulin, atorvastatin, iron sulfate, amlodipine, metoprolol, and lipase. REVIEW OF SYSTEMS: Ten-point review of systems is reviewed and as above, otherwise negative. PHYSICAL EXAMINATION: GENERAL: Patient is a pleasant female who is in no acute distress. The patient appears her stated age. VITAL SIGNS: Blood pressure 154/70, pulse 63, temperature 97.8. NEUROLOGIC: The patient is alert and oriented times 3 with no focal neurologic deficits. HEENT: Sclerae without icterus. Mouth has moist mucous membranes with normal pallor. NECK: No JVD. Carotid upstroke brisk. No bruits bilaterally. LUNGS: Decreased breath sounds noted bilaterally. BACK: No scoliosis or kyphosis. CARDIAC: Regular rate and rhythm with normal S1 and S2. No S3 or S4 noted. No significant rubs, m urmurs, thrills, or gallops noted throughout the precordium. PMI is not displaced. There is no par asternal heave. ABDOMEN: Soft, nontender, nondistended. No peritoneal signs present. No hepatosplenomegaly. No a bnormal striae. EXTREMITIES: A 2+ femoral and 2+ dorsalis pedis pulses. No cyanosis, clubbing, or edema. SKIN: No gross abnormalities. IMAGING: Recent echo Doppler shows LVEF 50%-55% with restrictive pattern, pacemaker I believe not n oted. Moderate TR, MR, PI with moderate size pleural effusion. PERTINENT LABORATORY DATA: Hemoglobin 10.2, creatinine 1.68 with a GFR of 29. IMPRESSION: 1. Pneumonia. 2. Acute on chronic diastolic heart failure. RECOMMENDATIONS: At this point, I would continue to treat appropriately with antibiotic therapy. [place] gr will diurese given pleural effusions noted on chest x-ray and on recent echo. She has diuresed an d already she states her status is improved. I would continue to watch closely and watch her creati nine. If her troponin is in the indeterminate range, we will continue conservative therapy given co morbidities.
[2016-11-08] MEDS: Cefdinir 300 MG CAP PO SCH (08:49)
[2016-11-08] MEDS: Pancrelipase DR 12000 1 CAP PO SCH (08:49)
[2016-11-08] MEDS: Apixaban 5 MG TAB PO SCH (08:49)
[2016-11-08] MEDS: Cyanocobalamin (Vitamin B-12) 1,000 MCG TAB PO SCH (08:49)
[2016-11-08] MEDS: Metoprolol Tartrate 50 MG TAB PO SCH (08:50)
[2016-11-08] MEDS: guaiFENesin ER 600 MG TAB PO SCH (08:50)
[2016-11-08] MEDS: Furosemide 40 MG TAB PO SCH (08:50)
[2016-11-08] MEDS: Ferrous Sulfate 325 MG TAB PO SCH (08:51)
[2016-11-08] MEDS: HumaLOG 300 UNITS/3 ML VIAL SC PRN (08:52)
--- NOTE | 2016-11-08 08:56 | PRG ---
DATE OF SERVICE: 11/08/2016 Ms. Fisher is doing well. No chest pain or pressure noted. Her shortness of breath is improved. S he is back to her baseline. PHYSICAL EXAMINATION: VITAL SIGNS: Blood pressure 106/69, pulse 67, temperature 98.2. LUNGS: Clear to auscultation. CARDIAC: Regular rate and rhythm. ABDOMEN: Soft, nontender, nondistended. EXTREMITIES: No edema. IMPRESSION: 1. Acute on chronic diastolic heart failure. 2. ? Pneumonia. 3. Status post pacemaker. RECOMMENDATIONS: Ms. Fisher appears back to her baseline. Would continue current medical therapy i ncluding amiodarone low dose in addition to the Eliquis and atorvastatin. We will leave antibiotic therapy at the discretion of the primary team. From my standpoint, it would be okay for discharge h ome with close outpatient followup.
--- NOTE | 2016-11-08 09:29 | DIS ---
TRANSFER OF CARE NOTE DATE OF ADMISSION: 11/03/2016 DATE OF DISCHARGE: 11/08/2016 DISCHARGE DISPOSITION: Home. PRIMARY CARE PROVIDER: Dr. Suleiman Croft FINAL DIAGNOSES: 1. Pneumonia. 2. Acute on chronic diastolic heart failure. 3. Coronary artery disease. 4. Hypertension. 5. Chronic anticoagulation. 6. Diabetes mellitus type 2. 7. Dyslipidemia. 8. Demand ischemia. 9. Acute on chronic kidney disease. DISCHARGE MEDICATIONS: Eliquis 2.5 mg twice a day, amiodarone 200 mg a day, insulin Glargine 10 un its subcutaneous daily, Lipitor 10 mg at bedtime, ferrous sulfate 65 mg twice daily, metoprolol 50 m g a day, amlodipine 2.5 mg a day, Lasix 40 mg a day, Omnicef 300 mg p.o. b.i.d., Nexium 20 mg a day. ALLERGIES: SULFA ANTIBIOTICS. PENDING AT THE TIME OF DISCHARGE: Blood cultures were negative since 11/03/2016. CODE STATUS: Full. HOSPITAL COURSE: [facility] with shor tness of breath and cough. Initial laboratory: White count 9.6, hemoglobin 11.2, platelet count 24 8,000. Sodium 132, potassium 3.9, BUN 41, creatinine 1.78. BNP 2356, blood cultures were obtained. The chest x-ray was equivocal whether it was pneumonia, heart failure or both. She was started on IV Rocephin and IV Zithromax. She was also found to have acute on chronic heart failure, was start ed on diuresis. Consultation was obtained with Cardiology, Dr. Bautista Naranjo. She had no proce dures. She improved dramatically during her hospital stay. At this time, her vital signs are pulse 64, respirations 18, blood pressure 146/65. Chest is clear. Heart had a regular rate and rhythm. Her blood sugars running in the 150-200 range. Her creatinine has remained somewhat adverse to previous and now she has chronic kidney disease stage 4. During h er hospital stay her Lasix was increased from 20 mg a day to 40 mg a day. Other medicines were cont inued. The Rocephin and Zithromax was transitioned to Omnicef. A prescription has been written for 7 more days of Omnicef and the new dose of Lasix. At time of discharge, she is doing well and sam zara of going home. She has been requested to see her PCP, Dr. Suleiman Croft in 7 days.
--- NOTE | 2016-11-08 09:47 | PRG ---
DATE OF SERVICE: 11/07/2016 SUBJECTIVE: Ms. Fisher is doing well. She states she did very well over the weekend. She states s he is back to her baseline and is ready to go home. PHYSICAL EXAMINATION: VITAL SIGNS: Blood pressure 164/69, pulse 67, temperature 97.2. LUNGS: Decreased breath sounds and now although improved. CARDIAC: Regular rate and rhythm with no new rubs, murmurs, thrills or gallops. PMI is not displac ed. ABDOMEN: Soft, nontender, and nondistended. No hepatosplenomegaly. EXTREMITIES: No significant edema noted bilaterally. PERTINENT LABORATORY DATA: Creatinine 2.01, which is up from 1.68. IMPRESSION: 1. Acute on chronic diastolic heart failure. 2. Restrictive physiology. 3. Pneumonia. RECOMMENDATIONS: From a clinical standpoint, Ms. Fisher has improved. She has been on Lasix and ap pears to be somewhat prerenal given creatinine of 2.0. May add back some fluids to see if her creat inine improves. Otherwise, from a CV standpoint would continue Eliquis as prescribed in addition to low dose amiodarone therapy and Lipitor. She is also on metoprolol.
[2016-11-08 12:25] VITALS: BP 162/70; TEMP 97.4
--- NOTE | 2016-11-12 13:52 | EKG ---
Test Reason : CHF Blood Pressure : / mmHG Vent. Rate : 060 BPM Atrial Rate : 211 BPM P-R Int : 000 ms QRS Dur : 204 ms QT Int : 548 ms P-R-T Axes : 000 -63 101 degrees QTc Int : 548 ms Ventricular-paced rhythm Abnormal ECG Confirmed by LUKE ANAYA, GREGORIA Eugene ([id number]), business editor AKHIL BENITEZ ([id number]) on 11/12/2016 1:52:14 PM Referred By: Confirmed By:GREGORIA BUTLER MD
== END 2016-11-08 12:51 | disposition home or self-care (01) | DRG 291 ==
LOC: ERS 19:58 → 2NO 21:30
PROVIDERS: ADMIT Internal Medicine; ATTEND Internal Medicine
DX: I13.0 Hypertensive heart and chronic kidney disease with heart failure and stage 1 through stage 4 chronic kidney disease, or unspecified chronic kidney disease (principal); I50.33 Acute on chronic diastolic (congestive) heart failure; J15.9 Unspecified bacterial pneumonia; N17.9 Acute kidney failure, unspecified; I24.8 Other forms of acute ischemic heart disease; E11.22 Type 2 diabetes mellitus with diabetic chronic kidney disease; N18.3 Chronic kidney disease, stage 3 (moderate); I48.0 Paroxysmal atrial fibrillation; E78.5 Hyperlipidemia, unspecified; M19.90 Unspecified osteoarthritis, unspecified site; Z95.0 Presence of cardiac pacemaker; Z96.653 Presence of artificial knee joint, bilateral; Z88.2 Allergy status to sulfonamides; I25.10 Atherosclerotic heart disease of native coronary artery without angina pectoris; Z79.01 Long term (current) use of anticoagulants; Z87.891 Personal history of nicotine dependence; E87.6 Hypokalemia; D64.9 Anemia, unspecified; K21.9 Gastro-esophageal reflux disease without esophagitis; I07.1 Rheumatic tricuspid insufficiency; I27.20 Pulmonary hypertension, unspecified
CPT/HCPCS: 36415; 36416; 71010; 71020; 80048; 80053; 83605; 83735; 83880; 84100; 84484; 85025; 87040; 90471; 90732; 93005; 93306; 93798; 94640; 94760; 96365; 96368; 96375; A4216; G0009; J0456; J0692; J0696; J1940; J1956; J2405; J3480; J7050; J7620

== ENCOUNTER 2020-01-08 13:48 | Inpatient (IN) | payer MEDICARE, BC ==
[2020-01-08 14:27] LABS: #Eosinphils 0.2 thou/uL (0.0-0.7); #Lymphocytes 0.9 thou/uL (1.20-3.40); #Monocytes 0.5 thou/uL (0.11-0.59); #Neutrophils 6.1 thou/uL (1.40-6.50); %Basophils 0.5 % (0.0-1.0); %Eosinophils 1.9 % (0.0-10.0); %Neutrophils 78.6 % (42.0-75.0); Hemoglobin 10.3 g/dL (12.0-16.0); Mean Corpuscular HGB CONC 33.2 g/dL (32.0-36.0); Mean Corpuscular Hemoglobin 32.5 pg (27.0-31.0); Mean Corpuscular Volume 97.9 fL (78.0-98.0); Mean Platelet Volume 7.5 fL (7.4-10.4); Platelet Count 330 thou/uL (130-400); RBC Distribution Width 14.8 % (11.5-14.5); Red Blood Cell (RBC) Count 3.18 mill/uL (4.20-5.40); White Blood Cell (WBC) Count 7.8 thou/uL (4.8-10.8)
[2020-01-08] MEDS ORDERED: Furosemide 40 MG/4 ML VIAL ONE (14:27)
[2020-01-08 14:48] LABS: ALT (SGPT) 15 U/L (8-55); AST (SGOT) 26 U/L (5-34); Albumin 3.6 g/dL (3.4-4.8); Alkaline Phosphatase 101 U/L (40-110); Anion Gap 19 mmol/L (10-20); BUN (Urea Nitrogen) 60 mg/dL (9.8-20.1); Bilirubin, Total 0.5 mg/dL (0.2-1.2); Calc. Creatinine Clearance 0 mL/min (70-130); Calcium 9.2 mg/dL (7.8-10.44); Carbon Dioxide 26 mmol/L (23-31); Chloride 99 mmol/L (98-107); Globulin 3.8 g/dL (2.4-3.5); Glucose 278 mg/dL (83-110); Potassium 3.9 mmol/L (3.5-5.1); Protein, Total 7.4 g/dL (6.0-8.3); Sodium 140 mmol/L (136-145)
--- NOTE | 2020-01-08 15:26 | RAD ---
PORTABLE CHEST: 01/08/20 PROVIDED CLINICAL HISTORY: Shortness of breath. FINDINGS: Comparison 11/21/16. The cardiac silhouette appears mildly enlarged. Vascular calcification is seen involving the aortic a rch. Left subclavian cardiac pacing device is redemonstrated in similar position. Bibasilar pleural d ensity compatible with effusions, right greater than left. Adjacent subsegmental atelectatic change a nd/or infiltrate. No evidence for pneumothorax. IMPRESSION: Bibasilar pleural parenchymal opacity. POS: AH
[2020-01-08] MEDS ORDERED: Calcium Carbonate 500 MG ChewTAB PO PRN (15:29)
[2020-01-08] MEDS ORDERED: Ondansetron PF 4 MG/2 ML Vial IVP PRN (15:29)
[2020-01-08] MEDS ORDERED: Dextrose 5% in Water 1,000 ML IV PRN (15:29)
[2020-01-08] MEDS ORDERED: Dextrose 50% Abboject 50 ML SYRINGE SLOW IVP PRN (15:29)
[2020-01-08] MEDS ORDERED: Senokot S 8.6-50 MG TAB PO PRN (15:29)
[2020-01-08] MEDS ORDERED: Bisacodyl 10 MG SUPP PR PRN (15:29)
[2020-01-08] MEDS ORDERED: Acetaminophen 325 MG TAB PO PRN (15:29)
[2020-01-08] MEDS ORDERED: Guaifenesin DM 100-10/5 ML UDCUP PO PRN (15:29)
[2020-01-08] MEDS ORDERED: HumaLOG 300 UNITS/3 ML VIAL SC PRN (15:29)
--- NOTE | 2020-01-08 16:30 | HP ---
REASON FOR ADMISSION: CHF exacerbation, acute on chronic kidney disease. HISTORY OF PRESENTING ILLNESS: The patient gives history of having progressive shortness of breath for last two weeks. She has been getting worse to the point that she could not ambulate at home. The patient has longstanding orthopnea and has been sleeping in a sitting position, which has again gotten worse now for the last few days. No complaints of chest pain or fever. Has some occasional dry cough. The patient sees Dr. Freeman for her kidneys and Dr. Naranjo for Cardiology. The daughter who is here at bedside says from September 20 of this year, the patient has been going downhill after her left hip and left shoulder fractures, which she sustained after a fall. She still has home health and ambulates with a cane at home. PAST MEDICAL AND SURGICAL HISTORY: History of hypotension, diabetes mellitus type 2, chronic kidney disease likely stage IV, dyslipidemia, history of CHF, prior EF of 55% on echo done and prior echo done in October of 2016 showed diastolic dysfunction, osteoarthritis, rectocele repair, left knee replacement, right knee replacement, pacemaker. 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 CURRENT MEDICATIONS: The patient is on: 1. Amiodarone 200 mg p.o. daily. 2. Eliquis 2.5 mg twice daily. 3. Ferrous sulfate 65 mg p.o. twice daily. 4. Lipitor 10 mg p.o. at bedtime. 5. Metoprolol tartrate 50 mg p.o. twice daily. 6. Nexium 20 mg p.o. daily. 7. Lantus 10 units subcu daily. 8. Vitamin B12 5000 mcg p.o. daily. 9. Glyburide 10 mg p.o. in a.m. and 5 mg p.o. q.p.m. 10. Lasix 40 mg p.o. daily. 11. Norvasc 2.5 mg p.o. daily. ALLERGIES: THE PATIENT IS ALLERGIC SULFA. PERSONAL HISTORY: Does not abuse alcohol or drugs. No history of smoking. FAMILY HISTORY: Mother at the age of 94 from natural causes. Father at the age of 72. He had history of emphysema and peptic ulcer disease. CODE STATUS: Full. Power of divorce attorney is her daughter. REVIEW OF SYSTEMS: CONSTITUTIONAL: Negative for weight loss or gain, ability to conduct usual activities. SKIN: Negative for rash, itching. EYES: Negative for double vision, pain. ENT/MOUTH: Negative for nose bleeding, neck stiffness, pain, tenderness. CARDIOVASCULAR: Negative for palpitations, dyspnea on exertion, orthopnea. RESPIRATORY: Negative for shortness of breath, wheezing, cough, hemoptysis, fever or night sweats. GASTROINTESTINAL: Negative for poor appetite, abdominal pain, heartburn, nausea, vomiting, constipation, or diarrhea. GENITOURINARY: Negative for urgency, frequency, dysuria, nocturia. MUSCULOSKELETAL: Negative for pain, swelling. NEUROLOGIC/PSYCHIATRIC: Negative for anxiety, depression. ALLERGY/IMMUNOLOGIC: Negative for skin rash, bleeding tendency. PHYSICAL EXAMINATION: GENERAL: The patient is an 89-year-old female, who is currently not in any acute distress. VITAL SIGNS: Blood pressure 180/50, pulse 66 per minute, respiratory rate 18 per minute, temperature 98.4 degrees Fahrenheit, saturating 93% on room air. NECK: Supple. There is elevated JVD. HEENT: Eyes, extraocular muscles intact. Pupils reacting to light. Oral cavity, mucous membranes are moist. No exudates or congestion. CARDIOVASCULAR System: S1 and S2 heard, regular rhythm. RESPIRATORY SYSTEM: Air entry 1+ bilateral. Scattered rales in the intrascapular and infrascapular areas. ABDOMEN: Soft. Bowel sounds heard. No tenderness, rigidity, or guarding. EXTREMITIES: There is 2+ peripheral edema. No calf tenderness. VASCULAR SYSTEM: Peripheral pulses 1+ bilateral. No ischemic ulcers or gangrene. CENTRAL NERVOUS SYSTEM: No gross focal motor deficits noted. The patient is alert, awake and oriented well. PSYCHIATRIC SYSTEM: The patient's mood is euthymic. No hallucinations or delusions. IMAGING DATA: EKG done shows paced rhythm at 60 beats per minute. QRS duration is 186 milliseconds, corrected QT is 482 milliseconds. Chest x-ray done shows pulmonary vascular congestion with bilateral pleural effusion, worse on right. LABORATORY DATA: White count of 8, hemoglobin and hematocrit 10 and 31, platelet count 330 with 78% neutrophils, MCV is 97. BUN 60, creatinine 2.8, serum glucose 278. BNP 1084. Albumin is 3.6. CLINICAL IMPRESSION AND PLAN: The patient will be admitted to telemetry for acute on chronic congestive heart failure exacerbation, likely diastolic dysfunction. We will obtain echo with 2D Doppler for left ventricular function. She has history of chronic kidney disease stage 3-4, which is progressively getting worse with creatinine almost at 3 now with anasarca. We will consult Dr. Freeman for Nephrology in view of her renal function likely getting worse with diuresis. We will consult Dr. Naranjo, her high man. We will continue her on Lasix 40 mg at 6 a.m. and 2 p.m., amiodarone 200 mg daily, aspirin, Lipitor, carvedilol for now. If needed, hydralazine will be used for blood pressure. No ANUPAM or ARBs will be used in view of chronic kidney disease with current worsening. We will continue to closely monitor her on telemetry. Her Eliquis will be held for now in view of possible dialysis access procedures if needed. She will be on Lovenox 30 mg subcu daily for deep vein thrombosis prophylaxis. Job ID: [id number]
[2020-01-08] MEDS: Carvedilol 6.25 MG TAB PO SCH (17:45)
[2020-01-08] MEDS ORDERED: Aspirin Chewable 81 MG TAB ONE (17:57)
[2020-01-08 18:34] LABS: Troponin I 0.126 ng/mL (< 0.028)
[2020-01-08] MEDS: Atorvastatin Calcium 10 MG TAB PO SCH (21:10)
[2020-01-08 22:50] LABS: Troponin I 0.139 ng/mL (< 0.028)
[2020-01-09] MEDS ORDERED: hydrALAZINE 20 MG/ML VIAL SLOW IVP SCH (01:15)
--- NOTE | 2020-01-09 03:34 | PDOC.EVN ---
Event Note - Event Note Event Note: Nursing called, patient hypertensive and mild resp. distress. Upon assessment and after reviewing chart, patient alert and oriented, mild resp distress, tachypneic 20s, on NC 3-4L. SBP 180s s/p hydralazine IVP, HR controlled, sp02 94-95%. Right side diminshed with rales. Poor inspiratory effort, kyphosis. Troponins x 3 flat. Will get repeat troponin and ekg. Give nitropaste 1 inch chest and lasix IVP dose early. Reviewed labs, electrolytes WNL. Will get lab to draw am labs now.
[2020-01-09] MEDS: Furosemide 40 MG/4 ML VIAL SLOW IVP SCH ×2 (03:44→14:30)
[2020-01-09] MEDS: Nitroglycerin 2% Ointment 1 INCH/1 GM Packet TOP SCH ×3 (03:45→21:01)
[2020-01-09 03:56] LABS: #Eosinphils 0.1 thou/uL (0.0-0.7); #Lymphocytes 0.7 thou/uL (1.20-3.40); #Monocytes 0.5 thou/uL (0.11-0.59); #Neutrophils 6.3 thou/uL (1.40-6.50); %Basophils 0.5 % (0.0-1.0); %Eosinophils 0.9 % (0.0-10.0); %Lymphocytes 9.7 % (21.0-51.0); %Monocytes 6.1 % (0.0-10.0); %Neutrophils 82.8 % (42.0-75.0); Hemoglobin 9.9 g/dL (12.0-16.0); Mean Corpuscular HGB CONC 33.2 g/dL (32.0-36.0); Mean Corpuscular Hemoglobin 32.6 pg (27.0-31.0); Mean Corpuscular Volume 98.3 fL (78.0-98.0); Mean Platelet Volume 7.4 fL (7.4-10.4); Platelet Count 323 thou/uL (130-400); RBC Distribution Width 14.7 % (11.5-14.5); Red Blood Cell (RBC) Count 3.02 mill/uL (4.20-5.40); White Blood Cell (WBC) Count 7.6 thou/uL (4.8-10.8)
[2020-01-09 04:17] LABS: Albumin 3.2 g/dL (3.4-4.8); Anion Gap 17 mmol/L (10-20); BUN (Urea Nitrogen) 59 mg/dL (9.8-20.1); Calc. Creatinine Clearance 15 mL/min (70-130); Calcium 8.9 mg/dL (7.8-10.44); Carbon Dioxide 26 mmol/L (23-31); Chloride 101 mmol/L (98-107); Glucose 200 mg/dL (83-110); Phosphorus 4.2 mg/dL (2.3-4.7); Potassium 3.7 mmol/L (3.5-5.1); Sodium 140 mmol/L (136-145)
[2020-01-09 04:35] LABS: Troponin I 0.131 ng/mL (< 0.028)
[2020-01-09 08:23] LABS: SARS-CoV-2 MS2 Positive; SARS-CoV-2 N Gene Negative; SARS-CoV-2 S Gene Negative; SARS-CoV-2 by NAA Not Detected (NotDetected); SARS-CoV-2 orf1ab Negative
--- NOTE | 2020-01-09 08:53 | CON ---
DATE OF CONSULTATION: 01/09/2020 REASON FOR CONSULTATION: Shortness of breath. HISTORY OF PRESENT ILLNESS: Ms. Fisher is a very pleasant 89-year-old woman, whom I have seen and evaluated in the past. She has a history of paroxysmal atrial fibrillation, status post pacemaker in addition to chronic kidney disease (advanced) followed by Dr. Luigi Freeman, for reasons of having increased shortness of breath for the last 2 weeks. No chest pain, pressure, or other associated symptoms are noted. She states today after being diuresed, her symptoms have markedly improved. Her troponin was slightly elevated. No syncope or presyncope noted. PAST MEDICAL HISTORY: Paroxysmal atrial fibrillation, chronic kidney disease, status post pacemaker, [id number] MR, and diastolic dysfunction. HOME MEDICATIONS: Include; 1. Amlodipine 2.5 daily. 2. Lipitor 10 daily. 3. Metoprolol 50 b.i.d. 4. Eliquis 2.5 mg b.i.d. 5. Amiodarone 200 daily. 6. Lasix 40 mg daily. 7. Creon. 8. Iron. 9. Metolazone 5 mg one p.o. q.a.m. 10. Glipizide. PAST SURGICAL HISTORY: Knee replacement, rectocele repair, wrist surgery, hysterectomy, cataract extraction, hip surgery, and shoulder surgery. SOCIAL HISTORY: No current tobacco or alcohol use. REVIEW OF SYSTEMS: Ten-point review of systems is reviewed and as above, otherwise negative. PHYSICAL EXAMINATION: GENERAL: Patient is a pleasant woman, who is in no acute distress. The patient appears their stated age. VITAL SIGNS: Blood pressure 143/66, pulse 60, and temperature afebrile. NEUROLOGIC: The patient is alert and oriented x3 with no focal neurologic deficits. HEENT: Sclerae without icterus. Mouth has moist mucous membranes with normal pallor. NECK: No JVD. Carotid upstroke brisk. No bruits bilaterally. LUNGS: Clear to auscultation with unlabored respirations. BACK: No scoliosis or kyphosis. CARDIAC: Regular rate and rhythm with normal S1 and S2. No S3 or S4 noted. No significant rubs, murmurs, thrills, or gallops noted throughout the precordium. PMI is not displaced. There is no parasternal heave. ABDOMEN: Soft, nontender, nondistended. No peritoneal signs present. No hepatosplenomegaly. No abnormal striae. EXTREMITIES: 2+ femoral and 2+ dorsalis pedis pulses. No cyanosis, clubbing, or edema. SKIN: No gross abnormalities. PERTINENT LABORATORY DATA: Include a creatinine of 2.67. Peak troponin 0.139. IMAGING DATA: EKG shows paced rhythm. IMPRESSION: 1. Shortness of breath. 2. Atrial fibrillation. 3. Status post pacemaker. 4. Diastolic dysfunction. 5. Mitral valve disorder. 6. Chronic kidney disease. RECOMMENDATIONS: 1. Ms. Fisher's symptoms are likely multifactorial. 2. She certainly has underlying diastolic dysfunction in addition to atrial fibrillation as well as chronic kidney disease (advanced) as well as a mitral valve disease. Agree with diuresis. Her elevated troponin is likely secondary to demand ischemia in addition to renal insufficiency. Based on the above, we would recommend a more conservative approach. The patient agrees. We would recommend resuming Eliquis and discontinuing Lovenox. Job ID: [id number]
[2020-01-09] MEDS ORDERED: Non-Formulary Item 1 EACH (Insulin Glargine,Hum.Rec.Anlog [Toujeo Solostar] 300 UNIT/ML M SQ SCH (09:00)
[2020-01-09] MEDS ORDERED: FLU VACC QS2020-21(65YR UP)/PF 240 MCG/0.7 ML SYRINGE IM ONE (09:00)
[2020-01-09] MEDS ORDERED: Enoxaparin Sodium 30 MG/0.3 ML SYRINGE SC SCH (09:00)
[2020-01-09] MEDS: Cyanocobalamin (Vitamin B-12) 1,000 MCG TAB PO SCH (09:20)
[2020-01-09] MEDS: Amiodarone 200 MG TAB PO SCH (09:21)
[2020-01-09] MEDS: Aspirin Chewable 81 MG TAB PO SCH (09:21)
[2020-01-09] MEDS: Carvedilol 6.25 MG TAB PO SCH ×2 (09:21→17:10)
[2020-01-09] MEDS: Apixaban 2.5 MG TAB PO SCH ×2 (09:22→21:01)
[2020-01-09] MEDS: Insulin Glargine 8 UNITS in Pre-Filled Syringe 1 EACH SC SCH (11:00)
[2020-01-09] MEDS: HumaLOG 300 UNITS/3 ML VIAL SC PRN (12:21)
--- NOTE | 2020-01-09 17:21 | PDOC.HOSPP ---
- Subjective Encounter Date: 01/09/20 Encounter Time: 08:40 Subjective: sob is better, no chest pain overall she feels better now - Objective Vital Signs & Weight: Vital Signs (12 hours) Temp Pulse Pulse Pulse Resp BP BP 01/09/20 16:30 97.5 F L 60 20 01/09/20 12:09 97.8 F 60 18 01/09/20 10:50 61 66 123/59 L 171/74 H 01/09/20 09:15 97.6 F 63 20 01/09/20 08:48 62 189/76 H 01/09/20 08:26 BP Pulse Ox Pulse Ox Pulse Ox 01/09/20 16:30 121/59 L 97 01/09/20 12:09 120/58 L 97 01/09/20 10:50 98 94 L 01/09/20 09:15 172/72 H 95 01/09/20 08:48 94 L 01/09/20 08:26 95 Weight Weight 143 lb 9 oz I&O: 01/08/20 01/09/20 01/10/20 06:59 06:59 06:59 Intake Total 600 Output Total 175 Balance -175 600 Result Diagrams: 01/09/20 03:34 01/09/20 03:33 Additional Labs: Accuchecks 01/09/20 01/09/20 01/09/20 16:29 12:14 10:44 POC Glucose 160 H 325 H 264 H 01/09/20 01/09/20 05:51 00:50 POC Glucose 189 H 166 H Hospitalist ROS - Medication Medications: Active Medications Generic Name Dose Route Start Last Admin Trade Name Shailesh PRN Reason Stop Dose Admin Amiodarone HCl 200 mg 01/09/20 09:00 01/09/20 09:21 Amiodarone 200 Mg Tab PO 200 mg DAILY LORETTA Administration Apixaban 2.5 mg 01/09/20 09:00 01/09/20 09:22 Apixaban 2.5 Mg Tab PO 2.5 mg BID LORETTA Administration Aspirin 81 mg 01/09/20 09:00 01/09/20 09:21 Aspirin Chewable 81 Mg Tab PO 81 mg DAILY LORETTA Administration Atorvastatin Calcium 10 mg 01/08/20 21:00 01/08/20 21:10 Atorvastatin Calcium 10 Mg Tab PO 10 mg HS LORETTA Administration Carvedilol 6.25 mg 01/08/20 17:00 01/09/20 17:10 Carvedilol 6.25 Mg Tab PO 6.25 mg BID-WM LORETTA Administration Cyanocobalamin 5,000 mcg 01/09/20 09:00 01/09/20 09:20 Cyanocobalamin (Vitamin B-12) 1,000 Mcg Tab PO 5,000 mcg DAILY LORETTA Administration Furosemide 40 mg 01/09/20 06:00 01/09/20 14:30 Furosemide 40 Mg/4 Ml Vial SLOW IVP 40 mg 0600,1400 LORETTA Administration Insulin Glargine 8 units/ 0.08 mls @ 0 mls/hr 01/09/20 09:00 01/09/20 11:00 Miscellaneous Medication SC 0.08 mls QAM LORETTA Administration Insulin Human Lispro 0 units 01/08/20 15:29 01/09/20 12:21 Humalog 300 Units/3 Ml Vial SC 8 unit .MODERATE SLIDING SC PRN Administration Moderate Correctional Scale Nitroglycerin 1 inch 01/09/20 04:00 01/09/20 12:11 Nitroglycerin 2% Ointment 1 Inch/1 Gm Packet TOP 1 inch 0400,1200,2000 LORETTA Administration Sodium Chloride 10 ml 01/09/20 09:00 01/09/20 09:21 Flush - Normal Saline 10 Ml Syringe IVF 10 ml Q12HR LORETTA Administration - Exam General Appearance: awake alert Eye: PERRL, anicteric sclera ENT: no oropharyngeal lesions, moist mucosa Neck: supple, no JVD Heart: RRR, no murmur Respiratory: no wheezes, rales Gastrointestinal: soft, non-tender, non-distended, normal bowel sounds Extremities: no cyanosis, 1+ LE edema Neurological: cranial nerve grossly intact, no focal deficits Psychiatric: normal affect, A&O x 3 Hosp A/P (1) Acute on chronic diastolic (congestive) heart failure Code(s): I50.33 - ACUTE ON CHRONIC DIASTOLIC (CONGESTIVE) HEART FAILURE Status: Acute (2) Acute worsening of stage 3 chronic kidney disease Code(s): N18.3 - CHRONIC KIDNEY DISEASE, STAGE 3 (MODERATE) * DO NOT USE * Status: Acute (3) Anemia, normocytic normochromic Code(s): D64.9 - ANEMIA, UNSPECIFIED Status: Chronic (4) Chronic anticoagulation Code(s): Z79.01 - INTERMEDIATE (CURRENT) USE OF ANTICOAGULANTS Status: Chronic (5) DM2 (diabetes mellitus, type 2) Status: Chronic Qualifiers: Diabetes mellitus correction insulin use: with correction use Diabetes mellitus complication status: with kidney complications Diabetes mellitus complication detail: with chronic kidney disease Chronic kidney disease stage: stage 4 (severe) Qualified Code(s): E11.22 - Type 2 diabetes mellitus with diabetic chronic kidney disease; N18.4 - Chronic kidney disease, stage 4 (severe); Z79.4 - intermediate manager (current) use of insulin (6) Dyslipidemia Code(s): E78.5 - HYPERLIPIDEMIA, UNSPECIFIED Status: Chronic (7) GERD (gastroesophageal reflux disease) Code(s): K21.9 - GASTRO-ESOPHAGEAL REFLUX DISEASE WITHOUT ESOPHAGITIS Status: Chronic (8) HTN (hypertension) Code(s): I10 - ESSENTIAL (PRIMARY) HYPERTENSION Status: Chronic Qualifiers: Hypertension type: essential hypertension Qualified Code(s): I10 - Essential (primary) hypertension (9) Pulmonary hypertension Code(s): I27.2 - OTHER SECONDARY PULMONARY HYPERTENSION * DO NOT USE * Status: Chronic - Plan has improved symptomatically with current lasix dosing, urine output is slowly decreasing per staff is at risk for progression of her renal disease hemostable but prognosis guarded continue asp, amiodarone, coreg, lasix, lipitor, eliquis, lantus, nitropaste mobilize as tolerated
[2020-01-09] MEDS: Atorvastatin Calcium 10 MG TAB PO SCH (21:01)
[2020-01-10] MEDS: Nitroglycerin 2% Ointment 1 INCH/1 GM Packet TOP SCH ×3 (05:16→21:06)
[2020-01-10] MEDS: Furosemide 40 MG/4 ML VIAL SLOW IVP SCH ×2 (05:16→15:23)
--- NOTE | 2020-01-10 07:20 | EKG ---
Test Reason : Blood Pressure : / mmHG Vent. Rate : 061 BPM Atrial Rate : 067 BPM P-R Int : 000 ms QRS Dur : 190 ms QT Int : 622 ms P-R-T Axes : 000 -70 109 degrees QTc Int : 626 ms AV sequential or dual chamber electronic pacemaker Confirmed by DR. Willie MARY ([id number]) on 01/10/2020 7:19:25 AM Referred By: CAROLIN DAS Confirmed By:DR. Willie MARY
[2020-01-10] MEDS: Cyanocobalamin (Vitamin B-12) 1,000 MCG TAB PO SCH (09:51)
[2020-01-10] MEDS: Aspirin Chewable 81 MG TAB PO SCH (09:51)
[2020-01-10] MEDS: Carvedilol 6.25 MG TAB PO SCH ×2 (09:51→18:00)
[2020-01-10] MEDS: Apixaban 2.5 MG TAB PO SCH ×2 (09:52→21:06)
[2020-01-10] MEDS: Amiodarone 200 MG TAB PO SCH (09:52)
[2020-01-10] MEDS: Insulin Glargine 8 UNITS in Pre-Filled Syringe 1 EACH SC SCH (09:52)
--- NOTE | 2020-01-10 10:17 | PDOC.HOSPP ---
- Subjective Encounter Date: 01/10/20 Encounter Time: 09:45 Subjective: no sob or chest pain feels better has ambulated with PT in the hallway a bit was able to sleep better last night - Objective Vital Signs & Weight: Vital Signs (12 hours) Temp Pulse Resp BP Pulse Ox 01/10/20 08:10 97.8 F 62 18 148/67 H 95 01/10/20 03:15 98.2 F 65 18 118/55 L 97 01/10/20 03:13 95 01/10/20 00:00 60 Weight Weight 134 lb 4.8 oz I&O: 01/09/20 01/10/20 01/11/20 06:59 06:59 06:59 Intake Total 720 Output Total 175 50 Balance -175 670 Result Diagrams: 01/09/20 03:34 01/09/20 03:33 Additional Labs: Accuchecks 01/10/20 01/09/20 01/09/20 05:58 20:00 16:29 POC Glucose 106 H 159 H 160 H 01/09/20 01/09/20 01/09/20 12:14 10:44 00:50 POC Glucose 325 H 264 H 166 H Hospitalist ROS - Medication Medications: Active Medications Generic Name Dose Route Start Last Admin Trade Name Freq PRN Reason Stop Dose Admin Amiodarone HCl 200 mg 01/09/20 09:00 01/10/20 09:52 Amiodarone 200 Mg Tab PO 200 mg DAILY LORETTA Administration Apixaban 2.5 mg 01/09/20 09:00 01/10/20 09:52 Apixaban 2.5 Mg Tab PO 2.5 mg BID LORETTA Administration Aspirin 81 mg 01/09/20 09:00 01/10/20 09:51 Aspirin Chewable 81 Mg Tab PO 81 mg DAILY LORETTA Administration Atorvastatin Calcium 10 mg 01/08/20 21:00 01/09/20 21:01 Atorvastatin Calcium 10 Mg Tab PO 10 mg HS LORETTA Administration Carvedilol 6.25 mg 01/08/20 17:00 01/10/20 09:51 Carvedilol 6.25 Mg Tab PO 6.25 mg BID-WM LROETTA Administration Cyanocobalamin 5,000 mcg 01/09/20 09:00 01/10/20 09:51 Cyanocobalamin (Vitamin B-12) 1,000 Mcg Tab PO 5,000 mcg DAILY LORETTA Administration Furosemide 40 mg 01/09/20 06:00 01/10/20 05:16 Furosemide 40 Mg/4 Ml Vial SLOW IVP 40 mg 0600,1400 LORETTA Administration Insulin Glargine 8 units/ 0.08 mls @ 0 mls/hr 01/09/20 09:00 01/10/20 09:52 Miscellaneous Medication SC 0.08 mls QAM LORETTA Administration Insulin Human Lispro 0 units 01/08/20 15:29 01/09/20 12:21 Humalog 300 Units/3 Ml Vial SC 8 unit .MODERATE SLIDING SC PRN Administration Moderate Correctional Scale Nitroglycerin 1 inch 01/09/20 04:00 01/10/20 05:16 Nitroglycerin 2% Ointment 1 Inch/1 Gm Packet TOP 1 inch 0400,1200,2000 LORETTA Administration Sodium Chloride 10 ml 01/09/20 09:00 01/09/20 21:01 Flush - Normal Saline 10 Ml Syringe IVF 10 ml Q12HR LORETTA Administration - Exam General Appearance: awake alert Eye: PERRL, anicteric sclera ENT: no oropharyngeal lesions, dry oral mucosa Neck: supple, no JVD Heart: RRR, no murmur Respiratory: no wheezes, rales, rhonchi Gastrointestinal: soft, non-tender, non-distended, normal bowel sounds Extremities: no cyanosis, 1+ LE edema Neurological: cranial nerve grossly intact, no focal deficits Psychiatric: A&O x 3 Hosp A/P (1) Acute on chronic diastolic (congestive) heart failure Code(s): I50.33 - ACUTE ON CHRONIC DIASTOLIC (CONGESTIVE) HEART FAILURE Status: Acute (2) Acute worsening of stage 3 chronic kidney disease Code(s): N18.3 - CHRONIC KIDNEY DISEASE, STAGE 3 (MODERATE) * DO NOT USE * Status: Acute (3) Anemia, normocytic normochromic Code(s): D64.9 - ANEMIA, UNSPECIFIED Status: Chronic (4) Chronic anticoagulation Code(s): Z79.01 - LONGTERM (CURRENT) USE OF ANTICOAGULANTS Status: Chronic (5) DM2 (diabetes mellitus, type 2) Status: Chronic Qualifiers: Diabetes mellitus buttermaker helper insulin use: with buttermaker helper use Diabetes mellitus complication status: with kidney complications Diabetes mellitus complication detail: with chronic kidney disease Chronic kidney disease stage: stage 4 (severe) Qualified Code(s): E11.22 - Type 2 diabetes mellitus with diabetic chronic kidney disease; N18.4 - Chronic kidney disease, stage 4 (severe); Z79.4 - longterm (current) use of insulin (6) Dyslipidemia Code(s): E78.5 - HYPERLIPIDEMIA, UNSPECIFIED Status: Chronic (7) GERD (gastroesophageal reflux disease) Code(s): K21.9 - GASTRO-ESOPHAGEAL REFLUX DISEASE WITHOUT ESOPHAGITIS Status: Chronic (8) HTN (hypertension) Code(s): I10 - ESSENTIAL (PRIMARY) HYPERTENSION Status: Chronic Qualifiers: Hypertension type: essential hypertension Qualified Code(s): I10 - Essential (primary) hypertension (9) Pulmonary hypertension Code(s): I27.2 - OTHER SECONDARY PULMONARY HYPERTENSION * DO NOT USE * Status: Chronic - Plan is slowly improving, renal function holding up, today's labs are pending is at risk for progression of her renal disease with diuresis hemostable but prognosis guarded continue asp, amiodarone, coreg, lasix, lipitor, eliquis, lantus, nitropaste mobilize as tolerated tried to call her daughter, unable to reach her (10.15am)
[2020-01-10 10:29] LABS: #Eosinphils 0.2 thou/uL (0.0-0.7); #Lymphocytes 0.6 thou/uL (1.20-3.40); #Monocytes 0.6 thou/uL (0.11-0.59); #Neutrophils 5.4 thou/uL (1.40-6.50); %Basophils 0.6 % (0.0-1.0); %Eosinophils 3.2 % (0.0-10.0); %Lymphocytes 8.9 % (21.0-51.0); %Monocytes 8.6 % (0.0-10.0); %Neutrophils 78.8 % (42.0-75.0); Hemoglobin 8.8 g/dL (12.0-16.0); Mean Corpuscular HGB CONC 32.6 g/dL (32.0-36.0); Mean Corpuscular Hemoglobin 32.7 pg (27.0-31.0); Mean Platelet Volume 7.4 fL (7.4-10.4); Platelet Count 275 thou/uL (130-400); RBC Distribution Width 14.9 % (11.5-14.5); Red Blood Cell (RBC) Count 2.68 mill/uL (4.20-5.40); White Blood Cell (WBC) Count 6.9 thou/uL (4.8-10.8)
[2020-01-10 10:44] LABS: Albumin 2.9 g/dL (3.4-4.8); Anion Gap 16 mmol/L (10-20); BUN (Urea Nitrogen) 63 mg/dL (9.8-20.1); BUN/Creatinine Ratio 20.66; Calc. Creatinine Clearance 12 mL/min (70-130); Calcium 8.3 mg/dL (7.8-10.44); Carbon Dioxide 28 mmol/L (23-31); Chloride 99 mmol/L (98-107); Glucose 218 mg/dL (83-110); Phosphorus 4.6 mg/dL (2.3-4.7); Potassium 3.7 mmol/L (3.5-5.1); Sodium 139 mmol/L (136-145)
[2020-01-10] MEDS: HumaLOG 300 UNITS/3 ML VIAL SC PRN (11:36)
--- NOTE | 2020-01-10 14:36 | PRG ---
DATE OF SERVICE: 01/10/2020 SUBJECTIVE: Ms. Fisher is doing much better. She has continued the diuresis. She states she is 99% improved. Blood pressure and heart rate also appear stable. OBJECTIVE: VITAL SIGNS: Blood pressure 172/55, pulse 60, temperature 98.4. LUNGS: Minimal crackles bilaterally. HEART: Regular rate and rhythm. ABDOMEN: Soft, nontender, nondistended. EXTREMITIES: No edema. PERTINENT LABORATORY DATA: Hemoglobin 8.8. Creatinine 3.05, which is slightly elevated from 2.67. IMPRESSION: 1. Diastolic dysfunction. 2. Shortness of breath. 3. Mitral valve disorder. 4. Chronic kidney disease. RECOMMENDATIONS: 1. Ms. Fisher from a clinical standpoint appears to be improving. Her hemoglobin is slightly less in addition to her creatinine slightly worsened. 2. We would recommend stopping IV Lasix. 3. Switch to p.o. Lasix if creatinine is stable. 4. Continue abciximab, aspirin, atorvastatin in addition to carvedilol. Otherwise, clinically she is improving. Dr. Mercado will be on-call this weekend if any further questions needed. The patient appears to be close to discharge. We will continue with a more conservative approach. Job ID: [id number]
--- NOTE | 2020-01-10 14:59 | PQF ---
CLINICAL DOCUMENTATION CLARIFICATION FORM: Dear Dr. Santy Bernard Date: 01/10/2020 Please exercise your independent, professional judgment in responding to the clarification form. Clinical indicators are provided on the bottom of this form for your review. Please check appropriate box(es): [x ] Acute Respiratory Failure: [ x] with Hypoxia [ ] with Hypercapnia [ ] Acute On Chronic Respiratory Failure: [ ] with Hypoxia [ ] with Hypercapnia [ ] Acute Respiratory Failure due to: (etiology) [ ] Chronic Respiratory Failure only [ ] with Hypoxia [ ] with Hypercapnia [ ] Hypoxia [ ] Other diagnosis [ ] Unable to determine In addition, please specify: Present on Admission (POA): [ x] Yes [ ] No [ ] Unable to determine For continuity of documentation, please document condition throughout progress notes and discharge summary. Thank You. To be completed by CDI/Coding staff for physician review: CLINICAL INDICATORS - SIGNS / SYMPTOMS / LABS / RESULTS AND LOCATION IN MR Pt hypertensive, mild resp. distress, tachypneic 20s, on NC 3-4 L. SBP 180s Rt side diminished W/ rales. Poor inspiratory effort, kyphosis. ( Event note/ Janes) 01/08 Respirations 25 ( 01/08) Presents to triage CXR 2 weeks ago showed fluid on lungs- states progressively getting harder to breathe. Final DX: CHF Exacerbation, dyspnea ( ED Report/) 01/07 RISK FACTORS / RESULTS AND LOCATION IN MR Acute on Chronic Diastolic Congestive Heart Failure, advanced age (89) ( PN/ Joana) 01/09) TREATMENTS / RESULTS AND LOCATION IN MR * OXYGEN SUPPLEMENTATION ( 01/08 PRESENT) * LASIX IV ( 01/08 PRESENT) Acute Respiratory Failure: ABG pH < 7.35 or > 7.45; Decreased oxygen saturation (<90% room air or < 95% on oxygen); PCO2 > 50 mm Hg; PO2 < 60 mm Hg; Labored or rapid respirations ARDS: Dx Criteria [[facility] ARDS]: Respiratory symptoms within one week of a known clinical insult (e.g. shock, infection, surgery, trauma) Bilateral opacities in CXR/Chest CT not due to CHF or fluid THANK YOU! CDS Signature: Rosy Caldera RN Phone #: [phone] Date: 01/10/2020 This is a part of the Medical Record MTDD
[2020-01-10] MEDS: Atorvastatin Calcium 10 MG TAB PO SCH (21:06)
[2020-01-11] MEDS: Nitroglycerin 2% Ointment 1 INCH/1 GM Packet TOP SCH ×2 (04:13→14:20)
[2020-01-11 05:21] LABS: Albumin 2.6 g/dL (3.4-4.8); Anion Gap 15 mmol/L (10-20); BUN (Urea Nitrogen) 66 mg/dL (9.8-20.1); BUN/Creatinine Ratio 21.22; Calc. Creatinine Clearance 12 mL/min (70-130); Calcium 7.9 mg/dL (7.8-10.44); Carbon Dioxide 27 mmol/L (23-31); Chloride 99 mmol/L (98-107); Glucose 83 mg/dL (83-110); Phosphorus 4.7 mg/dL (2.3-4.7); Potassium 3.4 mmol/L (3.5-5.1); Sodium 138 mmol/L (136-145)
[2020-01-11] MEDS: Carvedilol 6.25 MG TAB PO SCH ×2 (10:00→17:47)
[2020-01-11] MEDS: Apixaban 2.5 MG TAB PO SCH ×2 (10:01→22:03)
[2020-01-11] MEDS: Aspirin Chewable 81 MG TAB PO SCH (10:01)
[2020-01-11] MEDS: Amiodarone 200 MG TAB PO SCH (10:01)
[2020-01-11] MEDS: Cyanocobalamin (Vitamin B-12) 1,000 MCG TAB PO SCH (10:01)
[2020-01-11] MEDS: Insulin Glargine 8 UNITS in Pre-Filled Syringe 1 EACH SC SCH (10:02)
--- NOTE | 2020-01-11 12:45 | PDOC.HOSPP ---
- Subjective Encounter Date: 01/11/20 (f/u CHF exac) Encounter Time: 12:44 Subjective: Pt reports feeling better compared to admission, but easily short of breath with ambulation. She states she doesnt feel as good as she wants to. She denies any cp/n/v/abd pain. She reports some straining with bm's - Objective Vital Signs & Weight: Vital Signs (12 hours) Temp Pulse Resp BP Pulse Ox 01/11/20 11:19 97.8 F 62 18 124/57 L 94 L 01/11/20 08:10 94 L 01/11/20 08:06 96 01/11/20 08:00 97.8 F 62 20 124/69 94 L 01/11/20 04:00 97.8 F 66 18 121/56 L 96 01/11/20 03:00 96 Weight Weight 135 lb 1.6 oz I&O: 01/10/20 01/11/20 01/12/20 06:59 06:59 06:59 Intake Total 720 1050 Output Total 50 600 Balance 670 450 Result Diagrams: 01/10/20 10:15 01/11/20 04:09 Additional Labs: Accuchecks 01/11/20 01/11/20 01/10/20 11:12 06:07 20:25 POC Glucose 144 H 86 152 H 01/10/20 16:41 POC Glucose 82 EKG Reviewed by me: Yes (tele - av paced 60's) Hospitalist ROS - Medication Medications: Active Medications Generic Name Dose Route Start Last Admin Trade Name Freq PRN Reason Stop Dose Admin Amiodarone HCl 200 mg 01/09/20 09:00 01/11/20 10:01 Amiodarone 200 Mg Tab PO 200 mg DAILY LORETTA Administration Apixaban 2.5 mg 01/09/20 09:00 01/11/20 10:01 Apixaban 2.5 Mg Tab PO 2.5 mg BID LORETTA Administration Aspirin 81 mg 01/09/20 09:00 01/11/20 10:01 Aspirin Chewable 81 Mg Tab PO 81 mg DAILY LORETTA Administration Atorvastatin Calcium 10 mg 01/08/20 21:00 01/10/20 21:06 Atorvastatin Calcium 10 Mg Tab PO 10 mg HS LORETTA Administration Carvedilol 6.25 mg 01/08/20 17:00 12/05/20 10:00 Carvedilol 6.25 Mg Tab PO 6.25 mg BID-WM LORETTA Administration Cyanocobalamin 5,000 mcg 01/09/20 09:00 01/11/20 10:01 Cyanocobalamin (Vitamin B-12) 1,000 Mcg Tab PO 5,000 mcg DAILY LORETTA Administration Insulin Glargine 8 units/ 0.08 mls @ 0 mls/hr 01/09/20 09:00 01/11/20 10:02 Miscellaneous Medication SC 0.08 mls QAM LORETTA Administration Insulin Human Lispro 0 units 01/08/20 15:29 01/10/20 11:36 Humalog 300 Units/3 Ml Vial SC 4 unit .MODERATE SLIDING SC PRN Administration Moderate Correctional Scale Nitroglycerin 1 inch 01/09/20 04:00 01/11/20 04:13 Nitroglycerin 2% Ointment 1 Inch/1 Gm Packet TOP 1 inch 0400,1200,2000 LORETTA Administration Sodium Chloride 10 ml 01/09/20 09:00 01/11/20 10:32 Flush - Normal Saline 10 Ml Syringe IVF Not Given Q12HR LORETTA - Exam General Appearance: NAD Heart: RRR, no murmur Respiratory: no wheezes, no rales, no ronchi Respiratory - other findings: decreased breath sounds at bases bilateral, Gastrointestinal: soft, non-tender, non-distended, normal bowel sounds Extremities: no cyanosis, no clubbing, no edema Psychiatric: normal affect Hosp A/P (1) Acute on chronic diastolic (congestive) heart failure Code(s): I50.33 - ACUTE ON CHRONIC DIASTOLIC (CONGESTIVE) HEART FAILURE Status: Acute (2) Acute worsening of stage 3 chronic kidney disease Code(s): N18.3 - CHRONIC KIDNEY DISEASE, STAGE 3 (MODERATE) * DO NOT USE * Status: Acute (3) DM2 (diabetes mellitus, type 2) Status: Chronic Qualifiers: Diabetes mellitus long term care administrator insulin use: with long term care administrator use Diabetes mellitus complication status: with kidney complications Diabetes mellitus complication detail: with chronic kidney disease Chronic kidney disease stage: stage 4 (severe) Qualified Code(s): E11.22 - Type 2 diabetes mellitus with diabetic chronic kidney disease; N18.4 - Chronic kidney disease, stage 4 (severe); Z79.4 - long term care administrator (current) use of insulin (4) GERD (gastroesophageal reflux disease) Code(s): K21.9 - GASTRO-ESOPHAGEAL REFLUX DISEASE WITHOUT ESOPHAGITIS Status: Chronic (5) HTN (hypertension) Code(s): I10 - ESSENTIAL (PRIMARY) HYPERTENSION Status: Chronic Qualifiers: Hypertension type: essential hypertension Qualified Code(s): I10 - Essential (primary) hypertension - Plan Acute CHF - appreciate Cards consult - meds optimized - pt is s/p IV diurses - will resume oral furosemide Worsening renal function - - d/w Dr. Freeman today and he will see her - he thinks dialysis will be needed and will discuss with patient/daughter - continue current meds as ordered DM - controlled - continue current meds HTN - controlled dvt prophy - on eliquis gi prophy - not indicated code status full reviewed the above info with patient/daughter, no questions or further needs at end of eval. Further plan will be created by discussion with Dr. Freeman/patient.
[2020-01-11] MEDS ORDERED: Tuberculin PPD 0.1 ML VIAL I-DERMAL SCH (21:00)
[2020-01-11] MEDS: Atorvastatin Calcium 10 MG TAB PO SCH (22:03)
[2020-01-12 04:43] LABS: Hep C IgG Ab Non-Reactive (NonReactive); Hep C Index 0.08 S/CO (0-0.79)
[2020-01-12 07:44] LABS: #Eosinphils 0.2 thou/uL (0.0-0.7); #Lymphocytes 0.8 thou/uL (1.20-3.40); #Monocytes 0.7 thou/uL (0.11-0.59); #Neutrophils 4.5 thou/uL (1.40-6.50); %Basophils 0.6 % (0.0-1.0); %Eosinophils 3.7 % (0.0-10.0); %Lymphocytes 12.3 % (21.0-51.0); %Monocytes 11.5 % (0.0-10.0); %Neutrophils 71.9 % (42.0-75.0); Hemoglobin 8.7 g/dL (12.0-16.0); Mean Corpuscular HGB CONC 32.3 g/dL (32.0-36.0); Mean Corpuscular Hemoglobin 32.6 pg (27.0-31.0); Mean Platelet Volume 7.7 fL (7.4-10.4); Platelet Count 271 thou/uL (130-400); RBC Distribution Width 14.6 % (11.5-14.5); Red Blood Cell (RBC) Count 2.67 mill/uL (4.20-5.40); White Blood Cell (WBC) Count 6.2 thou/uL (4.8-10.8)
[2020-01-12 08:07] LABS: Anion Gap 18 mmol/L (10-20); BUN (Urea Nitrogen) 60 mg/dL (9.8-20.1); Calc. Creatinine Clearance 12 mL/min (70-130); Calcium 7.5 mg/dL (7.8-10.44); Carbon Dioxide 22 mmol/L (23-31); Chloride 98 mmol/L (98-107); Glucose 158 mg/dL (83-110); Potassium 3.7 mmol/L (3.5-5.1); Sodium 134 mmol/L (136-145)
[2020-01-12] MEDS: Aspirin Chewable 81 MG TAB PO SCH (08:19)
[2020-01-12] MEDS: Furosemide 40 MG TAB PO SCH (08:19)
[2020-01-12] MEDS: Cyanocobalamin (Vitamin B-12) 1,000 MCG TAB PO SCH (08:19)
[2020-01-12] MEDS: Carvedilol 6.25 MG TAB PO SCH ×2 (08:20→17:11)
[2020-01-12] MEDS: Apixaban 2.5 MG TAB PO SCH (08:20)
[2020-01-12] MEDS: Amiodarone 200 MG TAB PO SCH (08:20)
--- NOTE | 2020-01-12 09:12 | ULT ---
ULTRASOUND VESSEL MAPPING FOR DIALYSIS ACCESS: HISTORY: ESRD. RIGHT CEPHALIC VEIN: Proximal humerus 2.0 mm Mid humerus 1.4 mm Distal 1.3 mm Elbow 1.3 mm Proximal forearm 0.3 mm Mid 1.2 mm Distal 0.8mm RIGHT BASILIC VEIN: Proximal humerus 2.3 mm Mid humerus 1.8 mm Distal 2.5 mm Elbow 2.5 mm Proximal forearm 0.9 mm Mid 1.1 mm Distal not seen Right brachial artery 2.3 mm Right radial artery 1.2 mm Right ulnar artery 0.7 mm LEFT CEPHALIC VEIN: Proximal humerus 2.5 mm Mid humerus 2.4 mm Distal 2.4 mm Elbow 2.4 mm Proximal forearm 1.2 mm Mid 1.3 mm Distal not seen LEFT BASILIC VEIN: Proximal humerus 3.5 mm Mid humerus 2.4 mm Distal 2.4 mm Elbow 2.4 mm Proximal forearm 1.3 mm Mid 1.1 mm Distal 1.1 mm Left brachial artery 2.7 mm Radial artery 1.3 mm Ulnar artery 1.2 mm Transcribed Date/Time: 01/12/2020 9:26 AM
[2020-01-12] MEDS: HumaLOG 300 UNITS/3 ML VIAL SC PRN (11:55)
--- NOTE | 2020-01-12 12:38 | PDOC.HOSPP ---
- Subjective Encounter Date: 01/12/20 (f/u NEIL with CKD) Encounter Time: 12:35 - Objective Vital Signs & Weight: Vital Signs (12 hours) Temp Pulse Resp BP Pulse Ox 01/12/20 11:50 97.9 F 60 18 131/58 L 95 01/12/20 08:25 98 01/12/20 07:52 98 01/12/20 07:10 97.6 F 61 18 127/60 100 01/12/20 05:07 98 01/12/20 04:00 97.7 F 60 20 135/60 98 Weight Weight 136 lb 6.4 oz I&O: 01/11/20 01/12/20 01/13/20 06:59 06:59 06:59 Intake Total 1050 800 Output Total 600 266 Balance 450 534 Result Diagrams: 01/12/20 07:38 01/12/20 07:38 Additional Labs: Accuchecks 01/12/20 01/12/20 01/11/20 11:13 06:42 20:48 POC Glucose 291 H 93 172 H 01/11/20 16:18 POC Glucose 106 H EKG Reviewed by me: Yes (tele - av paced 60's) Hospitalist ROS - Medication Medications: Active Medications Generic Name Dose Route Start Last Admin Trade Name Freq PRN Reason Stop Dose Admin Amiodarone HCl 200 mg 01/09/20 09:00 01/12/20 08:20 Amiodarone 200 Mg Tab PO 200 mg DAILY LORETTA Administration Aspirin 81 mg 01/09/20 09:00 01/12/20 08:19 Aspirin Chewable 81 Mg Tab PO 81 mg DAILY LORETTA Administration Atorvastatin Calcium 10 mg 01/08/20 21:00 01/11/20 22:03 Atorvastatin Calcium 10 Mg Tab PO 10 mg HS LORETTA Administration Carvedilol 6.25 mg 01/08/20 17:00 01/12/20 08:20 Carvedilol 6.25 Mg Tab PO 6.25 mg BID-WM LORETTA Administration Cyanocobalamin 5,000 mcg 01/09/20 09:00 01/12/20 08:19 Cyanocobalamin (Vitamin B-12) 1,000 Mcg Tab PO 5,000 mcg DAILY LORETTA Administration Furosemide 40 mg 01/12/20 07:30 01/12/20 08:19 Furosemide 40 Mg Tab PO 40 mg DAILY-AC LORETTA Administration Insulin Human Lispro 0 units 01/08/20 15:29 01/12/20 11:55 Humalog 300 Units/3 Ml Vial SC 6 unit .MODERATE SLIDING SC PRN Administration Moderate Correctional Scale Sodium Chloride 10 ml 01/09/20 09:00 01/12/20 08:20 Flush - Normal Saline 10 Ml Syringe IVF 10 ml Q12HR LORETTA Administration - Exam General Appearance: NAD Heart: RRR, no murmur Respiratory: CTAB, no wheezes, no rales, no ronchi Gastrointestinal: soft, non-tender, non-distended, normal bowel sounds Extremities - other findings: 2+ edema bilateral Psychiatric: normal affect Hosp A/P (1) Acute on chronic diastolic (congestive) heart failure Code(s): I50.33 - ACUTE ON CHRONIC DIASTOLIC (CONGESTIVE) HEART FAILURE Status: Acute (2) DM2 (diabetes mellitus, type 2) Status: Chronic Qualifiers: Diabetes mellitus alf insulin use: with alf use Diabetes mellitus complication status: with kidney complications Diabetes mellitus complication detail: with chronic kidney disease Chronic kidney disease stage: stage 4 (severe) Qualified Code(s): E11.22 - Type 2 diabetes mellitus with diabetic chronic kidney disease; N18.4 - Chronic kidney disease, stage 4 (severe); Z79.4 - assisted (current) use of insulin (3) GERD (gastroesophageal reflux disease) Code(s): K21.9 - GASTRO-ESOPHAGEAL REFLUX DISEASE WITHOUT ESOPHAGITIS Status: Chronic (4) HTN (hypertension) Code(s): I10 - ESSENTIAL (PRIMARY) HYPERTENSION Status: Chronic Qualifiers: Hypertension type: essential hypertension Qualified Code(s): I10 - Essential (primary) hypertension (5) CKD (chronic kidney disease) Code(s): N18.9 - CHRONIC KIDNEY DISEASE, UNSPECIFIED Status: Acute Qualifiers: Chronic kidney disease stage: stage 5, not on chronic dialysis Qualified Code(s): N18.5 - Chronic kidney disease, stage 5 (6) Anemia Code(s): D64.9 - ANEMIA, UNSPECIFIED Status: Chronic Qualifiers: Anemia type: due to chronic kidney disease Chronic kidney disease stage: stage 5, not on chronic dialysis Qualified Code(s): N18.5 - Chronic kidney disease, stage 5; D63.1 - Anemia in chronic kidney disease - Plan Acute CHF - appreciate Cards consult - meds optimized - pt is s/p IV diuresis and back on oral Worsening renal function - now CKD 5 - pt met with Dr. Freeman yesterday with plan to start dialysis - Appreciate Gen Surg consult - plan for cath placement on Monday - d/c eliquis in preparation for surgery Anemia - stable, no signs of active bleeding DM - elevated blood sugars today - resume low dose long-acting insulin - change diet to renal/high protein and DM prudent HTN - controlled continue pt/ot dvt prophy - scd's - d/c eliquis today in preparation for surgery gi prophy - not indicated code status full reviewed the above info with patient/daughter, no questions or further needs at end of eval.
[2020-01-12] MEDS ORDERED: CEFAZOLIN 2 GM in Premix Bag 1 BAG IVPB SCH (13:00)
--- NOTE | 2020-01-12 14:04 | CON ---
DATE OF CONSULTATION: REASON FOR CONSULT: Dialysis access. HISTORY OF PRESENT ILLNESS: Ms. Fisher is an 89-year-old woman with a long-standing history of diabetes and chronic renal disease, who was recently admitted to the hospital with fluid overload and CHF exacerbation. She has responded to diuretics and is breathing easier now but her electrical designer drafter feels that she will require institution of dialysis during this hospitalization. She has never undergone dialysis before. Her daughter states that she has had kidney problems for some time, but they got much worse this summer when she had a bad fall and broke her hip and her shoulder and was in the hospital and quite ill for some time. She has since fully recovered and was recently discharged from physical therapy at home when she had worsening shortness of breath and had to come into the hospital. She states that it got so bad at home that she could not walk or sleep lying down, but now she is doing much better from that standpoint. She had been into an urgent care or emergency room prior to this, and they told her to double up on her Lasix and per her heart doctor, but that was insufficient to manage her symptoms. PAST MEDICAL HISTORY: Type 2 diabetes, chronic kidney disease, hyperlipidemia, heart failure with diastolic dysfunction and third-degree AV block. PAST SURGICAL HISTORY: Left subclavian pacemaker for AV block, rectocele repair, bilateral knee replacements. OUTPATIENT MEDICATIONS: Include 1. Amiodarone. 2. Eliquis. 3. Iron. 4. Lipitor. 5. Metoprolol. 6. Nexium. 7. Lantus. 8. Vitamin B12. 9. Glyburide. 10. Lasix. 11. Norvasc. ALLERGIES: REPORTS A SULFA ALLERGY. INPATIENT MEDICATIONS: Include 1. Amiodarone. 2. Aspirin. 3. Lipitor. 4. Carvedilol. 5. Vitamin B12. 6. Lasix. 7. Sliding scale insulin. 8. Eliquis, which she took this morning. REVIEW OF SYSTEMS: Ten system review of systems is negative except per HPI. Her main complaint prior to coming to the emergency room was increased shortness of breath with dyspnea on exertion and orthopnea and increased swelling in both of her legs. She has not noticed any significant swelling in either arm and she is right handed. PHYSICAL EXAMINATION: VITAL SIGNS: The patient is afebrile. Heart rate 60, respirations 18, saturating 95% on room air, blood pressure 131/58. GENERAL: Reveals a healthy elderly woman, in no acute distress. She is not flushed or toxic in appearance. She is not jaundiced or icteric. She is able to converse normally without any obvious dyspnea. HEENT: Unremarkable. Pupils are equal. Extraocular movements and facial movements are intact. NECK: Supple without lymphadenopathy or thyroid nodules. HEART: Regular in its rate and rhythm. I do not appreciate any murmurs, rubs, or gallops. She does have a few crackles bilaterally, but fairly good air movement. She has a left subclavian pacemaker in place. ABDOMEN: Soft, nontender, nondistended. EXTREMITIES: Lower extremities are edematous but warm. Upper extremities do not have any significant edema. She has small veins in her left arm. She has an antecubital IV in her right arm, but appears to have a palpable cephalic vein on that side. She has right ulnar dominant filling on Polo testing of left hand and bilateral normal filling on Polo testing of right hand. NEUROLOGIC: No focal deficits. PSYCHIATRIC: Alert, oriented and appropriate, and unable to give a good history. LABORATORY DATA: White count is normal at 6.2, hematocrit is low at 27, platelets 271. BUN and creatinine are 60 and 3.11 with an estimated GFR of 14. Potassium is 3.7 and bicarbonate is 22. Glucose has ranged from 106 to 291. Albumin is 2.6. Troponins were mildly elevated on admission up to 0.139. Vein mapping did not show any distal cephalic vein on the left, on the right the distal cephalic vein measures 0.3 in the proximal forearm, but 1.3 and greater above the elbow. The basilic vein is 1.8 mm or greater above the elbow. ASSESSMENT: Chronic renal failure progressing to need for dialysis due to combination of renal failure and heart failure with fluid overload. The dialysis catheter has been requested for immediate dialysis. If the patient decides on hemodialysis as her primary dialysis modality, a fistula would be recommended as well. Due to her left-sided subclavian pacemaker, this would preferentially be placed in the right arm, although the veins are somewhat preferable on the left. I have asked the nurse to move the right antecubital IV to the left hand or forearm. The inherent risks of tunneled dialysis catheter and AV fistula placement were discussed with the patient and her daughter. These risks include, but are not limited to, bleeding, infection, risks of anesthesia for both, hemothorax, pneumothorax, and deep vein thrombosis for the tunneled catheter, need for other procedures if she were to have these complications, and for the fistula, failure of the fistula to develop, need for additional procedures including transposition to obtain or maintain a working fistula and possibility of arterial steal with ischemic damage to the hand. They understand and accept these risks and wished to proceed. The daughter did have some questions about home dialysis and I urged her to discuss these with Dr. Freeman. I do not know if Dr. Freeman feels that she is a candidate for home dialysis or not, but if she does decide to proceed with peritoneal dialysis catheter, a peritoneal dialysis catheter could be placed laparoscopically. I would prefer to do this under the same anesthesia as we are going to need to hold her Eliquis for any procedure. I have discussed this with Dr. Naranjo and he feels that it is safe to hold this for 2 days for her to have her dialysis procedures on Monday. Job ID: [id number]
[2020-01-12] MEDS: Atorvastatin Calcium 10 MG TAB PO SCH (20:48)
[2020-01-12] MEDS: Insulin Glargine 5 UNITS in Pre-Filled Syringe 1 EACH SC SCH (20:49)
[2020-01-13 04:01] LABS: Anion Gap 17 mmol/L (10-20); BUN (Urea Nitrogen) 61 mg/dL (9.8-20.1); Calc. Creatinine Clearance 12 mL/min (70-130); Calcium 7.5 mg/dL (7.8-10.44); Carbon Dioxide 21 mmol/L (23-31); Chloride 98 mmol/L (98-107); Glucose 152 mg/dL (83-110); Potassium 3.7 mmol/L (3.5-5.1); Sodium 132 mmol/L (136-145)
[2020-01-13] MEDS: Cyanocobalamin (Vitamin B-12) 1,000 MCG TAB PO SCH (08:21)
[2020-01-13] MEDS: Aspirin Chewable 81 MG TAB PO SCH (08:22)
[2020-01-13] MEDS: Carvedilol 6.25 MG TAB PO SCH ×2 (08:22→17:32)
[2020-01-13] MEDS: Amiodarone 200 MG TAB PO SCH (08:22)
[2020-01-13] MEDS: Furosemide 40 MG TAB PO SCH (08:22)
[2020-01-13] MEDS ORDERED: READ PPD TEST SITE PO SCH (09:00)
[2020-01-13] MEDS: HumaLOG 300 UNITS/3 ML VIAL SC PRN (11:54)
--- NOTE | 2020-01-13 12:32 | PDOC.GSPN ---
Surgery Progress Note: Subj - Subjective Narrative: Patient is on the schedule for a tunneled dialysis catheter and right AV fistula tomorrow around noon. All of her questions were answered. Surgery Progress Note: Obj - Vital signs Vital signs: Vital Signs - Most Recent Temp Pulse Resp BP Pulse Ox 97.9 F 63 16 128/62 97 01/13/20 11:51 01/13/20 11:51 01/13/20 11:51 01/13/20 11:51 01/13/20 11:51 Surgery Progress Note: Results - Labs Result Diagrams: 01/12/20 07:38 01/13/20 03:15 Lab results: Laboratory Results - last 12 hr 01/12/20 01/13/20 01/13/20 06:01 03:15 06:07 Sodium 132 L Potassium 3.7 Chloride 98 Carbon Dioxide 21 L Anion Gap 17 BUN 61 H Creatinine 3.20 H Estimated GFR (MDRD) 14 Glucose 152 H POC Glucose 58 L* 145 H Calcium 7.5 L 01/13/20 11:29 Sodium Potassium Chloride Carbon Dioxide Anion Gap BUN Creatinine Estimated GFR (MDRD) Glucose POC Glucose 243 H Calcium
[2020-01-13] MEDS ORDERED: Furosemide 100 MG/10 ML VIAL SLOW IVP SCH (13:00)
--- NOTE | 2020-01-13 13:14 | PDOC.HOSPP ---
- Subjective Encounter Date: 01/13/20 (f/u malachi with ckd) Encounter Time: 13:13 Subjective: Pt with CKD admitted for HF exacerbation. Renal function is not improving, and she has progressed to ESRD needing hemodialysis. Per discussion with Dr. Freeman today, he recommends starting with hemodialysis and discussing peritoneal dialysis in the future if the patient is interested. Pt today reports she continues to feel short of breath. More swelling in her left arm. Also her nose feels stuffy. - Objective Vital Signs & Weight: Vital Signs (12 hours) Temp Pulse Pulse Pulse Resp BP BP 01/13/20 11:51 97.9 F 63 16 01/13/20 08:50 75 61 181/77 H 144/60 H 01/13/20 08:16 97.7 F 61 15 01/13/20 07:41 01/13/20 03:25 98.3 F 60 16 BP Pulse Ox 01/13/20 11:51 128/62 97 01/13/20 08:50 01/13/20 08:16 144/60 H 100 01/13/20 07:41 97 01/13/20 03:25 132/62 97 Weight Weight 140 lb 3.2 oz I&O: 01/12/20 01/13/20 01/14/20 06:59 06:59 06:59 Intake Total 800 1080 Output Total 266 300 Balance 534 780 Result Diagrams: 01/12/20 07:38 01/13/20 03:15 Additional Labs: Accuchecks 01/13/20 01/13/20 01/12/20 11:29 06:07 19:45 POC Glucose 243 H 145 H 200 H 01/12/20 01/12/20 16:58 06:01 POC Glucose 136 H 58 L* EKG Reviewed by me: Yes (tele = paced 60's ) Hospitalist ROS - Medication Medications: Active Medications Generic Name Dose Route Start Last Admin Trade Name Freq PRN Reason Stop Dose Admin Amiodarone HCl 200 mg 01/09/20 09:00 01/13/20 08:22 Amiodarone 200 Mg Tab PO 200 mg DAILY LORETTA Administration Aspirin 81 mg 01/09/20 09:00 01/13/20 08:22 Aspirin Chewable 81 Mg Tab PO 81 mg DAILY LORETTA Administration Atorvastatin Calcium 10 mg 01/08/20 21:00 01/12/20 20:48 Atorvastatin Calcium 10 Mg Tab PO 10 mg HS LORETTA Administration Carvedilol 6.25 mg 01/08/20 17:00 01/13/20 08:22 Carvedilol 6.25 Mg Tab PO 6.25 mg BID-WM LORETTA Administration Cyanocobalamin 5,000 mcg 01/09/20 09:00 01/13/20 08:21 Cyanocobalamin (Vitamin B-12) 1,000 Mcg Tab PO 5,000 mcg DAILY LORETTA Administration Furosemide 40 mg 01/12/20 07:30 01/13/20 08:22 Furosemide 40 Mg Tab PO 40 mg DAILY-AC LORETTA Administration Insulin Glargine 5 units/ 0.05 mls @ 0 mls/hr 01/12/20 21:00 01/12/20 20:49 Miscellaneous Medication SC Not Given HS LORETTA Insulin Human Lispro 0 units 01/08/20 15:29 01/13/20 11:54 Humalog 300 Units/3 Ml Vial SC 4 unit .MODERATE SLIDING SC PRN Administration Moderate Correctional Scale Sodium Chloride 10 ml 01/09/20 09:00 01/13/20 08:24 Flush - Normal Saline 10 Ml Syringe IVF 10 ml Q12HR LORETTA Administration - Exam General Appearance: NAD Heart: RRR, no murmur Respiratory: no wheezes, no ronchi Respiratory - other findings: bi-basilar rales Gastrointestinal: soft, non-tender, non-distended, normal bowel sounds Extremities - other findings: 3+ edema in LUE, and trace LE edema Musculoskeletal: normal tone Hosp A/P (1) Acute on chronic diastolic (congestive) heart failure Code(s): I50.33 - ACUTE ON CHRONIC DIASTOLIC (CONGESTIVE) HEART FAILURE Status: Acute (2) DM2 (diabetes mellitus, type 2) Status: Chronic Qualifiers: Diabetes mellitus [facility] insulin use: with buttermilk drier operator use Diabetes cynthia litus complication status: with kidney complications Diabetes mellitus co mplication detail: with chronic kidney disease Chronic kidney disease stage: stage 4 (severe) Qualified Code(s): E11.22 - Type 2 diabetes mellitus with diabetic chronic kidney disease; N18.4 - Chronic kidney disease, stage 4 (severe); Z79.4 - [facility] (current) use of insulin (3) GERD (gastroesophageal reflux disease) Code(s): K21.9 - GASTRO-ESOPHAGEAL REFLUX DISEASE WITHOUT ESOPHAGITIS Status: Chronic (4) HTN (hypertension) Code(s): I10 - ESSENTIAL (PRIMARY) HYPERTENSION Status: Chronic Qualifiers: Hypertension type: essential hypertension Qualified Code(s): I10 - Essential (primary) hypertension (5) CKD (chronic kidney disease) Code(s): N18.9 - CHRONIC KIDNEY DISEASE, UNSPECIFIED Status: Acute Qualifiers: Chronic kidney disease stage: stage 5, not on chronic dialysis Qualified Code(s): N18.5 - Chronic kidney disease, stage 5 (6) Anemia Code(s): D64.9 - ANEMIA, UNSPECIFIED Status: Chronic Qualifiers: Anemia type: due to chronic kidney disease Chronic kidney disease stage: stage 5, not on chronic dialysis Qualified Code(s): N18.5 - Chronic kidney disease, stage 5; D63.1 - Anemia in chronic kidney disease - Plan Acute CHF - appreciate Cards consult - meds optimized - 1 dose of IV lasix as fluid retention has increased Worsening renal function - now CKD 5 - Appreciate Gen Surg consult - plan for cath placement tomorrow - d/c eliquis yesterday in preparation for surgery Anemia - stable, no signs of active bleeding DM - improved blood sugar control - continue low dose long-acting insulin HTN - controlled continue pt/ot dvt prophy - scd's - d/c eliquis yesterday for surgery tomorrow gi prophy - not indicated code status full reviewed the above info with patient/daughter, no questions or further needs at end of eval.
[2020-01-13] MEDS ORDERED: Furosemide 40 MG/4 ML VIAL SLOW IVP SCH (13:15)
[2020-01-13] MEDS: Atorvastatin Calcium 10 MG TAB PO SCH (20:31)
[2020-01-13] MEDS: Insulin Glargine 5 UNITS in Pre-Filled Syringe 1 EACH SC SCH (21:00)
[2020-01-14 04:43] LABS: Anion Gap 17 mmol/L (10-20); BUN (Urea Nitrogen) 62 mg/dL (9.8-20.1); Calc. Creatinine Clearance 12 mL/min (70-130); Calcium 7.7 mg/dL (7.8-10.44); Carbon Dioxide 25 mmol/L (23-31); Chloride 96 mmol/L (98-107); Glucose 152 mg/dL (83-110); Potassium 3.6 mmol/L (3.5-5.1); Sodium 134 mmol/L (136-145)
[2020-01-14] MEDS ORDERED: Propofol 500 MG/50 ML VIAL ONE (07:14)
[2020-01-14] MEDS ORDERED: Ioversol 68 % 50 ML VIAL ONE (07:19)
[2020-01-14] MEDS ORDERED: Sodium Chloride 0.9% 20 ML ONE (07:19)
[2020-01-14] MEDS ORDERED: Heparin 5,000 UNITS/ML VIAL ONE (07:19)
[2020-01-14] MEDS ORDERED: Lidocaine 2% w/Epinephrine 1:200K 20 ML VIAL ONE (07:19)
[2020-01-14] MEDS ORDERED: Bupivacaine 0.25% HCL 30 ML VIAL ONE (07:19)
[2020-01-14] MEDS ORDERED: Heparin 10,000 UNITS/ 10 ML VIAL ONE (08:08)
[2020-01-14] MEDS ORDERED: Protamine Sulfate 50 MG/5 ML VIAL ONE (08:57)
[2020-01-14] MEDS ORDERED: Phenylephrine 10 MG/ML VIAL ONE (08:58)
--- NOTE | 2020-01-14 10:23 | RAD ---
RADIOGRAPH CHEST 1 VIEW: DATE: 01/14/2020 TIME: 10:07 AM HISTORY: 89-year-old female status post hemodialysis catheter placement COMPARISON: 01/08/2020 FINDINGS: There is a new double lumen dialysis catheter descending from the right medial lower neck, with dista l port tips overlying the SVC and upper portion of right atrium. No pneumothorax. Interval increase in moderate to large right pleural effusion, and no major interval change in left p leural effusion, with dense underlying opacification of the bilateral lung bases. No interval change in the diffuse centrally located haziness of most of the rest of visualized right lung. Left subclavian dual lead pacemaker again noted. IMPRESSION: 1) right-sided double lumen HemoSplit hemodialysis catheter placement without pneumothorax. 2) interval increase in volume of moderate to large right pleural effusion. 3) no other interval change, including left pleural effusion and bibasilar dense pulmonary opacificat ion.
[2020-01-14 10:28] LABS: Actual Bicarbonate (HCO3a) 24.9 mEq/L (22-28); Base Excess (BEa) -1.4 mEq/L (-2.0 to +3.0); CO2 Tension 49.8 mmHg (35.0-45.0); Calcium, Ionized (arterial) 1.07 mmol/L (1.12-1.30); Carboxyhemoglobin (COHb) 0.4 gm% (0.0-3.0); Hemoglobin (Hb) 9.6 g/dL (12.0-16.0); O2 Tension (PaO2), arterial 89.6 mmHg (> 60.0); Potassium - ABG Lab 3.72 mmol/L (3.70-5.30); pH, Arterial 7.32 (7.35-7.45)
[2020-01-14 10:31] LABS: Puncture Site LRA
[2020-01-14] MEDS ORDERED: ePHEDrine 50 MG/ML VIAL ONE (10:45)
[2020-01-14] MEDS ORDERED: Bupivacaine HCl 0.5%/Epinephrine 1:200,000/PF 30 ml Vial ONE (10:45)
[2020-01-14] MEDS ORDERED: PHENYLEPHRINE-NS 100 MCG/ML 10 ML SYRINGE ONE (10:45)
[2020-01-14 13:14] LABS: Hep B Surface AG-Rflx Sendout Negative (Negative); Hepatitis B Core Total Negative (Negative); Hepatitis B Surface AB-Sendout Non Reactive (.)
[2020-01-14] MEDS: Furosemide 40 MG TAB PO SCH (13:39)
[2020-01-14] MEDS: Carvedilol 6.25 MG TAB PO SCH ×2 (13:39→17:48)
[2020-01-14] MEDS: Amiodarone 200 MG TAB PO SCH (13:40)
[2020-01-14] MEDS: Aspirin Chewable 81 MG TAB PO SCH (13:40)
[2020-01-14] MEDS: Cyanocobalamin (Vitamin B-12) 1,000 MCG TAB PO SCH (13:40)
--- NOTE | 2020-01-14 14:35 | PDOC.OP ---
Operative Note - Operative Note Operative Note: DATE OF PROCEDURE: 01/14/2020 PROCEDURE: Placement of tunneled hemodialysis catheter with ultrasound and fluoroscopic guidance in the right arm Marek AV fistula placement. SURGEON: Lyubov Holley M.D. PREOPERATIVE DIAGNOSIS: Chronic renal failure and heart failure with fluid overload. POSTOPERATIVE DIAGNOSIS: Chronic renal failure and heart failure with fluid overload. HISTORY: Patient with chronic renal failure and heart failure with fluid overl oad. A tunneled hemodialysis catheter for ongoing dialysis has been requested by the patients audit spec for immediate institution of dialysis. The fistula was also requested for long-term access. She has a left-sided pacemaker so the fistula will be placed on the right.. PROCEDURE: After informed consent was obtained and appropriate preoperative antibiotics were administered, the patient was taken to the Operating Room, placed in the supine position and monitored anesthesia care was administered. The neck and chest were prepped and draped in a standard sterile fashion and the patient placed in Trendelenburg position. A sterile ultrasound probe was used to identify the patent compressible right IJ vein which was accessed under direct ultrasound guidance. A wire was threaded through the needle and confirmed by ultrasound to be within the patent compressible vessel with the tip in the vena cava by fluoroscopy. Local anesthesia was infused to the skin and subcutaneous tissues of the right neck and chest. An infraclavicular incision was made and a catheter tunneled from the infraclavicular to the right IJ access site. The right IJ was sequentially dilated over the wire following which a dilator and sheath were placed over the wire and the dilator and wire removed leaving the sheath in place. The catheter was tunneled through the sheath which was then split and removed leaving the catheter in place. This was confirmed by fluoroscopy to be in good position in the superior vena cava with no kinking of the course of the catheter. Both ports easily aspirated dark venous nonpulsatile blood and easily flushed without resistance. Heparin was instilled to the quantity specified on the hub, and the hub was secured to the skin with 3-0 nylon sutures. The skin incision at the neck was closed in two layers with 4-0 Monocryl suture and Dermabond dressings were placed. The skin at the exit site was snugged up around the catheter with 4-0 Monocryl suture and Dermabond was placed there as well. Once the Dermabond was dry, a Biopatch and Tegaderm dressing was placed at the exit site. Attention was then turned to creation of the right AV fistula. A preoperative block had been placed by anesthesia and adequacy confirmed. The patient's arm was prepped and draped in standard sterile fashion. The palpable cephalic vein and radial artery were marked on the skin. An incision was made between these 2 structures and dissection carried down to the cephalic vein. This was felt to be of adequate caliber and quality to support an AV fistula. The vein was interrogated with cardiac dilators and easily accepted up to a 3mm dilator. The vein was flushed with heparinized saline and clamped. The radial artery was identified and dissected free and although calcified was felt to be of adequate caliber and quality to support a fistula. This was dissected free. Heparin was administered systemically and allowed to circulate for 3 minutes. After the heparin had circulated for 3 minutes, the radial artery was clamped proximally and distally. An anterior arteriotomy was created with an 11 blade and extended with Rodriguez scissors. The vein was spatulated and an end-to-side anastomosis was created with excellent technical result. Prior to tying down the anastomosis, the arterial inflow was released flushing the anastomosis. The anastomosis was then secured and hemostasis was verified. Flow was established first through the fistula following which flow was restored through the artery. The patient had a palpable thrill in the cephalic vein as well as a good Doppler signal to the level of the antecubital fossa. The wound was irrigated and examined for hemostasis was again confirmed to be excellent. The subcutaneous tissues were reapproximated with a running 3-0 Monocryl sutures and the skin was closed with running 4-0 subcuticular Monocryl suture. Dermabond dressings were placed. Prior to leaving the operating room the fistula was again examined by Doppler and a good bruit confirmed. The patient was then taken to recovery in good condition. Estimated blood loss was minimal. There were no complications. There were no specimens.
--- NOTE | 2020-01-14 17:37 | PDOC.HOSPP ---
- Subjective Encounter Date: 01/14/20 Encounter Time: 17:00 Subjective: Patient up in bed denies any complaints. - Objective Vital Signs & Weight: Vital Signs (12 hours) Temp Pulse Resp BP Pulse Ox 01/14/20 15:26 97.9 F 60 15 120/53 L 100 01/14/20 12:15 97.6 F 61 14 115/53 L 100 01/14/20 08:08 97 Weight Weight 137 lb I&O: 01/13/20 01/14/20 01/15/20 06:59 06:59 06:59 Intake Total 1080 1080 Output Total 300 550 Balance 780 530 Result Diagrams: 01/12/20 07:38 01/14/20 04:09 Additional Labs: Accuchecks 01/14/20 01/14/20 01/13/20 16:42 06:00 20:51 POC Glucose 133 H 157 H 193 H Hospitalist ROS - Review of Systems Cardiovascular: denies: chest pain, palpitations, orthopnea, paroxysmal noc. dyspnea, edema, light headedness, other Gastrointestinal: denies: nausea, vomiting, abdominal pain, diarrhea, constipation, melena, hematochezia, other Genitourinary: denies: dysuria, frequency, incontinence, hematuria, retention, other - Medication Medications: Active Medications Generic Name Dose Route Start Last Admin Trade Name Freq PRN Reason Stop Dose Admin Amiodarone HCl 200 mg 01/09/20 09:00 01/14/20 13:40 Amiodarone 200 Mg Tab PO Not Given DAILY [facility] Aspirin 81 mg 01/09/20 09:00 01/14/20 13:40 Aspirin Chewable 81 Mg Tab PO Not Given DAILY [facility] Atorvastatin Calcium 10 mg 01/08/20 21:00 01/13/20 20:31 Atorvastatin Calcium 10 Mg Tab PO 10 mg HS LORETTA Administration Carvedilol 6.25 mg 01/08/20 17:00 01/14/20 13:39 Carvedilol 6.25 Mg Tab PO Not Given BID-WM L[facility]TA Cyanocobalamin 5,000 mcg 01/09/20 09:00 01/14/20 13:40 Cyanocobalamin (Vitamin B-12) 1,000 Mcg Tab PO Not Given DAILY [facility] Furosemide 40 mg 01/12/20 07:30 01/14/20 13:39 Furosemide 40 Mg Tab PO Not Given DAILY-AC [facility] Insulin Glargine 5 units/ 0.05 mls @ 0 mls/hr 01/12/20 21:00 01/13/20 21:00 Miscellaneous Medication SC Not Given HS [facility] Insulin Human Lispro 0 units 01/08/20 15:29 01/13/20 11:54 Humalog 300 Units/3 Ml Vial SC 4 unit .MODERATE SLIDING SC PRN Administration Moderate Correctional Scale Sodium Chloride 10 ml 01/09/20 09:00 01/14/20 13:40 Flush - Normal Saline 10 Ml Syringe IVF 10 ml Q12HR LORETTA Administration - Exam Heart: negative: RRR, no murmur, no gallops, no rubs, normal peripheral pulses, irregular, diminshed peripheral pulses, murmur present, II/IV, III/IV Respiratory: negative: CTAB, no wheezes, no rales, no ronchi, normal chest expansion, no tachypnea, normal percussion, rales, rhonchi, tachypneic, wheezes Gastrointestinal: negative: soft, non-tender, non-distended, normal bowel sounds, no palpable masses, no hepatomegaly, no splenomegaly, no bruit, no guarding, no rigidity, tender to palpation, distended, diminished bowl sounds, voluntary guarding Extremities: 1+ LE edema Extremities - other findings: No sensation to right upper extremity no motor movement either, Hosp A/P - Plan Hosp A/P (1) Acute on chronic diastolic (congestive) heart failure Code(s): I50.33 - ACUTE ON CHRONIC DIASTOLIC (CONGESTIVE) HEART FAILURE Status: Acute (2) DM2 (diabetes mellitus, type 2) Status: Chronic Qualifiers: Diabetes mellitus buttermaker insulin use: with buttermaker use Diabetes mellitus complication status: with kidney complications Diabetes mellitus complication detail: with chronic kidney disease Chronic kidney disease stage: stage 4 (severe) Qualified Code(s): E11.22 - Type 2 diabetes mellitus with diabetic chronic kidney disease; N18.4 - Chronic kidney disease, stage 4 (s evere); Z79.4 - long-term (current) use of insulin (3) GERD (gastroesophageal reflux disease) Code(s): K21.9 - GASTRO-ESOPHAGEAL REFLUX DISEASE WITHOUT ESOPHAGITIS Status: Chronic (4) HTN (hypertension) Code(s): I10 - ESSENTIAL (PRIMARY) HYPERTENSION Status: Chronic Qualifiers: Hypertension type: essential hypertension Qualified Code(s): I10 - Essential (primary) hypertension (5) CKD (chronic kidney disease) Code(s): N18.9 - CHRONIC KIDNEY DISEASE, UNSPECIFIED Status: Acute Qualifiers: Chronic kidney disease stage: stage 5, not on chronic dialysis Qualified Code(s): N18.5 - Chronic kidney disease, stage 5 (6) Anemia Code(s): D64.9 - ANEMIA, UNSPECIFIED Status: Chronic Qualifiers: Anemia type: due to chronic kidney disease Chronic kidney disease stage: stage 5, not on chronic dialysis Qualified Code(s): N18.5 - Chronic kidney disease, stage 5; D63.1 - Anemia in chronic kidney disease - Plan Acute CHF - appreciate Cards consult - meds optimized Worsening renal function - now CKD 5 - Appreciate Gen Surg consult -patient undergo temporary dialysis catheter placement. 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 -Continue to hold Eliquis resume when okay with surgery.. Anemia - stable, no signs of active bleeding DM - improved blood sugar control - continue low dose long-acting insulin HTN - controlled continue pt/ot dvt prophy - scd's - d/c eliquis 01/12 gi prophy - not indicated code status full
[2020-01-14 19:39] LABS: HIV-1 Quantitative, RNA PCR <20 copies/mL (.)
[2020-01-14] MEDS ORDERED: READ PPD TEST SITE PO SCH (21:00)
[2020-01-14] MEDS ORDERED: Ferrous Sulfate 325 MG TAB PO SCH (21:00)
[2020-01-14] MEDS: Ferrous Sulfate 325 MG TAB PO SCH (21:08)
[2020-01-14] MEDS: Atorvastatin Calcium 10 MG TAB PO SCH (21:08)
[2020-01-14] MEDS: Apixaban 2.5 MG TAB PO SCH (21:09)
[2020-01-14] MEDS: Insulin Glargine 5 UNITS in Pre-Filled Syringe 1 EACH SC SCH (21:09)
[2020-01-15] MEDS: Apixaban 2.5 MG TAB PO SCH ×2 (09:19→21:14)
[2020-01-15] MEDS: Carvedilol 6.25 MG TAB PO SCH ×2 (09:19→17:09)
[2020-01-15] MEDS: Furosemide 40 MG TAB PO SCH (09:19)
[2020-01-15] MEDS: HYDROcodone/Acetaminophen 5/325 mg Tablet PO PRN ×2 (09:20→21:14)
[2020-01-15] MEDS: Cyanocobalamin (Vitamin B-12) 1,000 MCG TAB PO SCH (09:20)
[2020-01-15] MEDS: Amiodarone 200 MG TAB PO SCH (09:20)
[2020-01-15] MEDS: Aspirin Chewable 81 MG TAB PO SCH (09:20)
[2020-01-15] MEDS: Ferrous Sulfate 325 MG TAB PO SCH ×2 (09:20→21:14)
--- NOTE | 2020-01-15 12:51 | PDOC.GSPN ---
Surgery Progress Note: Subj - Subjective Narrative: Doing fine. Has not started dialysis yet. Right AV fistula has good thrill. Hand pink and warm. Incisions look good. Assessment/plan: Status post right AV Fistula and tunneled dialysis catheter. Doing well. She can follow-up in my clinic in 2-3 weeks. Signing off. Surgery Progress Note: Obj - Vital signs Vital signs: Vital Signs - Most Recent Temp Pulse Resp BP Pulse Ox 98.0 F 62 18 150/66 H 100 01/15/20 12:00 01/15/20 12:00 01/15/20 12:00 01/15/20 12:00 01/15/20 12:00 Surgery Progress Note: Results - Labs Result Diagrams: 01/12/20 07:38 01/14/20 04:09 Lab results: Laboratory Results - last 12 hr 01/15/20 01/15/20 05:52 10:59 POC Glucose 86 222 H
[2020-01-15] MEDS: HumaLOG 300 UNITS/3 ML VIAL SC PRN (18:15)
[2020-01-15] MEDS: Insulin Glargine 5 UNITS in Pre-Filled Syringe 1 EACH SC SCH (21:13)
[2020-01-15] MEDS: Atorvastatin Calcium 10 MG TAB PO SCH (21:14)
[2020-01-16] MEDS ORDERED: Nortriptyline 10 MG CAP ONE ×2 (08:02→08:03)
--- NOTE | 2020-01-16 08:36 | PDOC.HOSPP ---
- Subjective Encounter Date: 01/15/20 Encounter Time: 11:45 Subjective: Patient up in bed no complaints - Objective Vital Signs & Weight: Vital Signs (12 hours) Temp Pulse Resp BP Pulse Ox 01/16/20 07:30 97.8 F 62 16 142/64 H 100 01/16/20 04:00 97.5 F L 60 19 126/60 100 Weight Weight 137 lb I&O: 01/15/20 01/16/20 01/17/20 06:59 06:59 06:59 Intake Total 350 660 Output Total 0 0 Balance 350 660 Result Diagrams: 01/12/20 07:38 01/14/20 04:09 Additional Labs: Accuchecks 01/16/20 01/15/20 01/15/20 05:54 20:46 17:04 POC Glucose 81 158 H 187 H 01/15/20 10:59 POC Glucose 222 H Hospitalist ROS - Review of Systems Respiratory: denies: cough, dry, shortness of breath, hemoptysis, SOB with excertion, pleuritic pain, sputum, wheezing, other Cardiovascular: denies: chest pain, palpitations, orthopnea, paroxysmal noc. dyspnea, edema, light headedness, other Gastrointestinal: denies: nausea, vomiting, abdominal pain, diarrhea, constipation, melena, hematochezia, other - Medication Medications: Active Medications Generic Name Dose Route Start Last Admin Trade Name Freq PRN Reason Stop Dose Admin Hydrocodone Bitart/Acetaminophen 1 tab 01/08/20 15:29 01/15/20 21:14 Hydrocodone/Acetaminophen 5/325 Mg Tablet PO 1 tab Q4H PRN Administration Moderate Pain (4-6) Amiodarone HCl 200 mg 01/09/20 09:00 01/15/20 09:20 Amiodarone 200 Mg Tab PO 200 mg DAILY [facility] Administration Apixaban 2.5 mg 01/14/20 21:00 01/15/20 21:14 Apixaban 2.5 Mg Tab PO 2.5 mg BID [place] Administration Aspirin 81 mg 01/09/20 09:00 01/15/20 09:20 Aspirin Chewable 81 Mg Tab PO 81 mg DAILY [facility] Administration Atorvastatin Calcium 10 mg 01/08/20 21:00 01/15/20 21:14 Atorvastatin Calcium 10 Mg Tab PO 10 mg HS L[place]ETTA Administration Carvedilol 6.25 mg 01/08/20 17:00 01/15/20 17:09 Carvedilol 6.25 Mg Tab PO 6.25 mg BID-WM [place] Administration Cyanocobalamin 5,000 mcg 01/09/20 09:00 01/15/20 09:20 Cyanocobalamin (Vitamin B-12) 1,000 Mcg Tab PO 5,000 mcg DAILY [facility] Administration Ferrous Sulfate 325 mg 01/14/20 21:00 01/15/20 21:14 Ferrous Sulfate 325 Mg Tab PO 325 mg BID [facility] Administration Furosemide 40 mg 01/12/20 07:30 01/15/20 09:19 Furosemide 40 Mg Tab PO 40 mg DAILY-AC [facility] Administration Insulin Glargine 5 units/ 0.05 mls @ 0 mls/hr 01/12/20 21:00 01/15/20 21:13 Miscellaneous Medication SC 0.05 mls HS LORETTA Administration Insulin Human Lispro 0 units 01/08/20 15:29 01/15/20 18:15 Humalog 300 Units/3 Ml Vial SC 2 unit .MODERATE SLIDING SC PRN Administration Moderate Correctional Scale Sodium Chloride 10 ml 01/09/20 09:00 01/15/20 21:15 Flush - Normal Saline 10 Ml Syringe IVF 10 ml Q12HR LORETTA Administration - Exam Neck: negative: supple, symmetric, no JVD, no thyromegaly, no lymphadenopathy, no carotid bruit, JVD Heart: negative: RRR, no murmur, no gallops, no rubs, normal peripheral pulses, irregular, diminshed peripheral pulses, murmur present, II/IV, III/IV Respiratory: negative: CTAB, no wheezes, no rales, no ronchi, normal chest expansion, no tachypnea, normal percussion, rales, rhonchi, tachypneic, wheezes Hosp A/P - Plan Hosp A/P (1) Acute on chronic diastolic (congestive) heart failure Code(s): I50.33 - ACUTE ON CHRONIC DIASTOLIC (CONGESTIVE) HEART FAILURE Status: Acute (2) DM2 (diabetes mellitus, type 2) Status: Chronic Qualifiers: Diabetes mellitus shelter insulin use: with shelter use Diabetes mellitus complication status: with kidney complications Diabetes mellitus complication detail: with chronic kidney disease Chronic kidney disease stage: stage 4 (severe) Qualified Code(s): E11.22 - Type 2 diabetes mellitus with diabetic chronic kidney disease; N18.4 - Chronic kidney disease, stage 4 (severe); Z79.4 - longterm (current) use of insulin (3) GERD (gastroesophageal reflux disease) Code(s): K21.9 - GASTRO-ESOPHAGEAL REFLUX DISEASE WITHOUT ESOPHAGITIS Status: Chronic (4) HTN (hypertension) Code(s): I10 - ESSENTIAL (PRIMARY) HYPERTENSION Status: Chronic Qualifiers: Hypertension type: essential hypertension Qualified Code(s): I10 - Essential (primary) hypertension (5) CKD (chronic kidney disease) Code(s): N18.9 - CHRONIC KIDNEY DISEASE, UNSPECIFIED Status: Acute Qualifiers: Chronic kidney disease stage: stage 5, not on chronic dialysis Qualified Code(s): N18.5 - Chronic kidney disease, stage 5 (6) Anemia Code(s): D64.9 - ANEMIA, UNSPECIFIED Status: Chronic Qualifiers: Anemia type: due to chronic kidney disease Chronic kidney disease stage: stage 5, not on chronic dialysis Qualified Code(s): N18.5 - Chronic kidney disease, stage 5; D63.1 - Anemia in chronic kidney disease - Plan Acute CHF - appreciate Cards consult - meds optimized Worsening renal function - now CKD 5 - Appreciate Gen Surg consult -patient undergo temporary dialysis catheter placement. 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 -Continue to hold Eliquis resume when okay with surgery.. Anemia - stable, no signs of active bleeding DM - improved blood sugar control - continue low dose long-acting insulin HTN - controlled continue pt/ot dvt prophy - scd's - d/c eliquis 01/12 gi prophy - not indicated code status full 01/14 patient able to move her right arm and sensation is slowly improving. Fistula on the right arm. Patient continues to be on dialysis. We will get physical therapy to get patient up in chair. Plan discussed with patient's son who was at the bedside.
[2020-01-16] MEDS: Carvedilol 6.25 MG TAB PO SCH ×2 (09:13→17:33)
[2020-01-16] MEDS: Furosemide 40 MG TAB PO SCH (09:13)
[2020-01-16] MEDS: Cyanocobalamin (Vitamin B-12) 1,000 MCG TAB PO SCH (09:14)
[2020-01-16] MEDS: Amiodarone 200 MG TAB PO SCH (09:14)
[2020-01-16] MEDS: Aspirin Chewable 81 MG TAB PO SCH (09:14)
[2020-01-16] MEDS: Apixaban 2.5 MG TAB PO SCH ×2 (09:14→21:00)
[2020-01-16] MEDS: Ferrous Sulfate 325 MG TAB PO SCH ×2 (09:15→21:00)
[2020-01-16] MEDS: HumaLOG 300 UNITS/3 ML VIAL SC PRN (12:07)
[2020-01-16 13:53] VITALS: BMI 21.4
--- NOTE | 2020-01-16 18:11 | PDOC.HOSPP ---
- Subjective Encounter Date: 01/16/20 Encounter Time: 10:00 Subjective: Patient seen for follow-up regarding CHF exacerbation. Denies fevers or chills. - Objective Vital Signs & Weight: Vital Signs (12 hours) Temp Pulse Pulse Pulse Resp BP BP 01/16/20 17:33 153/62 H 01/16/20 15:47 97.4 F L 62 16 01/16/20 12:00 97.4 F L 60 16 01/16/20 09:57 65 62 196/81 H 01/16/20 09:13 142/64 H 01/16/20 07:30 97.8 F 62 16 BP BP Pulse Ox Pulse Ox 01/16/20 17:33 01/16/20 15:47 174/72 H 100 01/16/20 12:00 128/63 100 01/16/20 09:57 154/70 H 98 01/16/20 09:13 01/16/20 07:30 142/64 H 100 Weight Admit Weight 143 lb 9 oz Weight 137 lb I&O: 01/15/20 01/16/20 01/17/20 06:59 06:59 06:59 Intake Total 350 660 480 Output Total 0 0 Balance 350 660 480 Result Diagrams: 01/12/20 07:38 01/14/20 04:09 Additional Labs: Accuchecks 01/16/20 01/16/20 01/16/20 17:30 11:20 05:54 POC Glucose 76 166 H 81 01/15/20 20:46 POC Glucose 158 H I reviewed patient's labs and MAR EKG Reviewed by me: Yes (Telemetry: AV paced rhythm) Hospitalist ROS - Review of Systems Cardiovascular: denies: chest pain, palpitations, orthopnea, paroxysmal noc. dyspnea, edema, light headedness Gastrointestinal: denies: nausea, vomiting, abdominal pain, diarrhea, constipation, melena, hematochezia - Medication Medications: Active Medications Generic Name Dose Route Start Last Admin Trade Name Freq PRN Reason Stop Dose Admin Hydrocodone Bitart/Acetaminophen 1 tab 01/08/20 15:29 01/15/20 21:14 Hydrocodone/Acetaminophen 5/325 Mg Tablet PO 1 tab Q4H PRN Administration Moderate Pain (4-6) Amiodarone HCl 200 mg 01/09/20 09:00 01/16/20 09:14 Amiodarone 200 Mg Tab PO 200 mg DAILY [facility] Administration Apixaban 2.5 mg 01/14/20 21:00 01/16/20 09:14 Apixaban 2.5 Mg Tab PO 2.5 mg BID [facility] Administration Aspirin 81 mg 01/09/20 09:00 01/16/20 09:14 Aspirin Chewable 81 Mg Tab PO 81 mg DAILY [facility] Administration Atorvastatin Calcium 10 mg 01/08/20 21:00 01/15/20 21:14 Atorvastatin Calcium 10 Mg Tab PO 10 mg HS [place] Administration Carvedilol 6.25 mg 01/08/20 17:00 01/16/20 17:33 Carvedilol 6.25 Mg Tab PO 6.25 mg BID-WM [place] Administration Cyanocobalamin 5,000 mcg 01/09/20 09:00 01/16/20 09:14 Cyanocobalamin (Vitamin B-12) 1,000 Mcg Tab PO 5,000 mcg DAILY [facility] Administration Ferrous Sulfate 325 mg 01/14/20 21:00 01/16/20 09:15 Ferrous Sulfate 325 Mg Tab PO 325 mg BID [facility] Administration Furosemide 40 mg 01/12/20 07:30 01/16/20 09:13 Furosemide 40 Mg Tab PO 40 mg DAILY-AC [facility] Administration Insulin Glargine 5 units/ 0.05 mls @ 0 mls/hr 01/12/20 21:00 01/15/20 21:13 Miscellaneous Medication SC 0.05 mls HS LORETTA Administration Insulin Human Lispro 0 units 01/08/20 15:29 01/16/20 12:07 Humalog 300 Units/3 Ml Vial SC 2 unit .MODERATE SLIDING SC PRN Administration Moderate Correctional Scale Sodium Chloride 10 ml 01/09/20 09:00 01/16/20 09:15 Flush - Normal Saline 10 Ml Syringe IVF 10 ml Q12HR LORETTA Administration - Exam General Appearance: awake alert Eye: anicteric sclera ENT: normocephalic atraumatic Neck: supple Heart: RRR Respiratory: CTAB Gastrointestinal: soft, non-tender Skin: no rashes Psychiatric: normal affect, normal behavior Hosp A/P - Plan -Assessment Hosp A/P (1) Acute on chronic diastolic (congestive) heart failure Code(s): I50.33 - ACUTE ON CHRONIC DIASTOLIC (CONGESTIVE) HEART FAILURE Status: Acute (2) DM2 (diabetes mellitus, type 2) Status: Chronic Qualifiers: Diabetes mellitus detention insulin use: with detention use Diabetes mellitus complication status: with kidney complications Diabetes mellitus complication detail: with chronic kidney disease Chronic kidney disease stage: stage 4 (severe) Qualified Code(s): E11.22 - Type 2 diabetes mellitus with diabetic chronic kidney disease; N18.4 - Chronic kidney disease, stage 4 (severe); Z79.4 - exterminator helper termite (current) use of insulin (3) GERD (gastroesophageal reflux disease) Code(s): K21.9 - GASTRO-ESOPHAGEAL REFLUX DISEASE WITHOUT ESOPHAGITIS Status: Chronic (4) HTN (hypertension) Code(s): I10 - ESSENTIAL (PRIMARY) HYPERTENSION Status: Chronic Qualifiers: Hypertension type: essential hypertension Qualified Code(s): I10 - Ess ential (primary) hypertension (5) CKD (chronic kidney disease) Code(s): N18.9 - CHRONIC KIDNEY DISEASE, UNSPECIFIED Status: Acute Qualifiers: Chronic kidney disease stage: stage 5, not on chronic dialysis Qualified Code(s): N18.5 - Chronic kidney disease, stage 5 (6) Anemia Code(s): D64.9 - ANEMIA, UNSPECIFIED Status: Chronic Qualifiers: Anemia type: due to chronic kidney disease Chronic kidney disease stage: stage 5, not on chronic dialysis Qualified Code(s): N18.5 - Chronic kidney disease, stage 5; D63.1 - Anemia in chronic kidney disease - Plan Patient to go for dialysis today. Patient has dialysis chair. Anemia stable. Continue Accu-Cheks and insulin sliding scale. HTN - controlled Ambulate patient
[2020-01-16] MEDS: Atorvastatin Calcium 10 MG TAB PO SCH (21:00)
[2020-01-16] MEDS: Insulin Glargine 5 UNITS in Pre-Filled Syringe 1 EACH SC SCH (21:00)
[2020-01-17] MEDS: Carvedilol 6.25 MG TAB PO SCH ×2 (12:27→18:04)
[2020-01-17] MEDS: Ferrous Sulfate 325 MG TAB PO SCH ×2 (12:28→22:08)
[2020-01-17] MEDS: Amiodarone 200 MG TAB PO SCH (12:28)
[2020-01-17] MEDS: Furosemide 40 MG TAB PO SCH (12:28)
[2020-01-17] MEDS: Apixaban 2.5 MG TAB PO SCH ×2 (12:28→22:08)
[2020-01-17] MEDS: Aspirin Chewable 81 MG TAB PO SCH (12:28)
[2020-01-17] MEDS: Cyanocobalamin (Vitamin B-12) 1,000 MCG TAB PO SCH (12:28)
--- NOTE | 2020-01-17 16:51 | CON ---
DATE OF CONSULTATION: 01/17/2020 REASON FOR CONSULTATION: Esophageal dysphagia. CONSULTING PROVIDER: Geoff Hilliard MD HISTORY OF PRESENT ILLNESS: The patient is an 89-year-old female with past medical history of diabetes, chronic kidney disease stage 4, hyperlipidemia, congestive heart failure with diastolic dysfunction, osteoarthritis, and third-degree AV block, now status post pacemaker placement, who was initially presenting to the hospital with complaints of shortness of breath, dyspnea on exertion, and increased upper extremity edema. She was initially diagnosed with congestive heart failure exacerbation and placed on diuretic management with good response thus far. However, upon evaluating the patient earlier today with Speech Pathology, she exhibited increased dysphagia, characterized as the sensation that food was getting stuck at the level of the midchest and prompted her ultimately to vomit in order to relieve the obstruction. Upon further questioning the patient, she says that she has been having this dysphagia type symptoms for several years now, characterized as having the sensation that solid food primarily getting stuck at the level of the mid to lower chest, would occur once a month, last for around 10 to 15 minutes, and usually resolve spontaneously with either coughing or inducing vomiting at that point in time. This would usually occur with ingestion of denser type meats, but would also occur with ingestion of rice and again would also resolve completely for the next month upon either inducing vomiting or coughing to make the food bolus moved through the gastroesophageal junction. Otherwise, she denies any nausea, GERD symptoms, fevers, chills, hematemesis, melena, hematochezia, odynophagia, diarrhea, constipation, or weight loss. REVIEW OF SYSTEMS: A 10-category review of systems was obtained with all responses negative except for the pertinent positives as listed in HPI. PAST MEDICAL HISTORY: As per HPI. PAST SURGICAL HISTORY: 1. Rectocele repair. 2. Left knee replacement. 3. Right knee replacement. 4. Pacemaker placement. FAMILY HISTORY: Denies any GI malignancies. SOCIAL HISTORY: Denies any tobacco, alcohol, or illicit drug use. OUTPATIENT MEDICATIONS: Reviewed. ALLERGIES: SULFA. PHYSICAL EXAMINATION: VITAL SIGNS: Temperature 98.2, pulse 69, blood pressure 136/60, respiratory rate 20, and saturating 100% on 2 L nasal cannula. GENERAL: The patient was lying in bed, in no acute distress. Alert and oriented x4. HEENT: Normocephalic and atraumatic. Neck is supple. No scleral icterus. Possible elevated JVD noted bilaterally. CARDIOVASCULAR: Regular rate and rhythm with no discernable murmurs, gallops, or rubs. RESPIRATORY: Clear to auscultation bilaterally with no discernable wheezes or rales. ABDOMEN: Normoactive bowel sounds. Soft, nontender, and nondistended. EXTREMITIES: No cyanosis, clubbing, or edema in the bilateral lower extremities. [id number] nonpitting edema noted in the bilateral upper extremities. LABORATORY DATA: CBC with a white blood cell count of 6.2, hemoglobin 8.7, hematocrit 27, platelets 271, reticulocyte count 3%, MCV 101, and RDW 14.6. Chemistry with a sodium of 134, potassium 3.6, chloride 96, CO2 of 25, BUN 62, creatinine 3.23, and glucose 152. Iron 45 and ferritin 352. BNP 1032 from 01/11. IMAGING DATA: Upper endoscopy was performed on 02/26/2015, showing a mild intrinsic stenosis at approximately 39 cm past the incisors that was easily traversed with the standard gastroscope. Otherwise, a small duodenal bulb diverticulum was noted in addition to a small hiatal hernia. ASSESSMENT AND PLAN: The patient is an 89-year-old female with past medical history of diabetes, chronic kidney disease/end-stage renal disease on dialysis, hyperlipidemia, congestive heart failure with diastolic dysfunction and ejection fraction of 55%, osteoarthritis, and third-degree AV block status post pacemaker placement, initially presenting with an acute exacerbation of her congestive heart failure, but now with intermittent dysphagia symptoms, likely secondary to an esophageal stricture/hiatal hernia. Esophageal dysphagia: The patient is presenting with a longstanding history of years of intermittent dysphagia, characterized as the sensation of solid food getting stuck at the level of the mid to lower chest. This would occur approximately once monthly, last for 10 to 15 minutes, and resolve spontaneously or would require the patient to induce vomiting to relieve the obstruction. The symptoms have not been progressing in terms of frequency over the last few years; however, based on the upper endoscopy performed in 2015, she did have the appearance of a mild intrinsic stenosis at the distal esophagus, consistent with a Schatzki's ring. She currently denies any acid reflux symptoms, but it is likely contributing to the formation of a scar ring at this time (silent reflux). However, with the intermittent nature and the fact that the symptoms are not getting more frequent, it does raise the concern that possibly the hiatal hernia could be contributing her symptoms. I discussed the differential for her symptoms, and at this time, she is more amenable to starting a proton pump inhibitor as part of acid reflux and to prevent further inflammation of a possible esophageal stricture rather than proceeding with upper endoscopy at this time. However, if her dysphagia symptoms continue or become more severe during this hospitalization, then upper endoscopy could be considered at that time. RECOMMENDATIONS: 1. Would place the patient on a soft mechanical diet to facilitate passage through a probable distal esophageal stenosis/stricture. 2. Would place the patient on pantoprazole 40 mg daily as part of acid reflux contributing to possible stricture formation. 3. Would hold on upper endoscopy per the patient preference at this time, but if she has worsening dysphagia symptoms, I would recommend a more expedited upper endoscopy. Otherwise, the patient could be followed up in the outpatient clinic with upper endoscopy performed at that time. 4. Would continue with aggressive diuretic management for her congestive heart failure. We will continue to follow peripherally. Please call with any questions. Job ID: [id number]
--- NOTE | 2020-01-17 17:36 | PDOC.HOSPP ---
- Subjective Encounter Date: 01/17/20 Encounter Time: 10:50 Subjective: Seen for follow-up regarding CHF exacerbation. She reports that she vomited after eating food today. She denies fevers or chills. She underwent dialysis yesterday. - Objective Vital Signs & Weight: Vital Signs (12 hours) Temp Pulse Resp BP Pulse Ox 01/17/20 16:20 98.4 F 60 19 146/68 H 99 01/17/20 12:23 98.2 F 69 20 136/60 100 01/17/20 08:15 97.5 F L 60 18 148/67 H 98 01/17/20 05:42 142/78 H Weight Admit Weight 143 lb 9 oz Weight 136 lb 8 oz I&O: 01/16/20 01/17/20 01/18/20 06:59 06:59 06:59 Intake Total 660 1350 Output Total 0 100 Balance 660 1250 Result Diagrams: 01/12/20 07:38 01/14/20 04:09 Additional Labs: Accuchecks 01/17/20 01/17/20 01/17/20 16:28 11:14 06:18 POC Glucose 185 H 134 H 109 H 01/16/20 01/16/20 20:01 17:30 POC Glucose 96 76 Labs and MAR reviewed by me EKG Reviewed by me: Yes (Telemetry: Electronically ventricular paced rhythm) Hospitalist ROS - Review of Systems Gastrointestinal: reports: nausea, vomiting. denies: abdominal pain, diarrhea, constipation, melena, hematochezia Genitourinary: denies: dysuria, frequency, incontinence, hematuria, retention - Medication Medications: Active Medications Generic Name Dose Route Start Last Admin Trade Name Freq PRN Reason Stop Dose Admin Hydrocodone Bitart/Acetaminophen 1 tab 01/08/20 15:29 01/15/20 21:14 Hydrocodone/Acetaminophen 5/325 Mg Tablet PO 1 tab Q4H PRN Administration Moderate Pain (4-6) Amiodarone HCl 200 mg 01/09/20 09:00 01/17/20 12:28 Amiodarone 200 Mg Tab PO Not Given DAILY [facility] Apixaban 2.5 mg 01/14/20 21:00 01/17/20 12:28 Apixaban 2.5 Mg Tab PO Not Given BID [facility] Aspirin 81 mg 01/09/20 09:00 01/17/20 12:28 Aspirin Chewable 81 Mg Tab PO Not Given DAILY [facility] Atorvastatin Calcium 10 mg 01/08/20 21:00 01/16/20 21:00 Atorvastatin Calcium 10 Mg Tab PO Not Given HS [facility] Carvedilol 6.25 mg 01/08/20 17:00 01/17/20 12:27 Carvedilol 6.25 Mg Tab PO Not Given BID-WM [facility] Cyanocobalamin 5,000 mcg 01/09/20 09:00 01/17/20 12:28 Cyanocobalamin (Vitamin B-12) 1,000 Mcg Tab PO Not Given DAILY [facility] Ferrous Sulfate 325 mg 01/14/20 21:00 01/17/20 12:28 Ferrous Sulfate 325 Mg Tab PO Not Given BID [facility] Furosemide 40 mg 01/12/20 07:30 01/17/20 12:28 Furosemide 40 Mg Tab PO Not Given DAILY-AC [facility] Insulin Glargine 5 units/ 0.05 mls @ 0 mls/hr 01/12/20 21:00 01/16/20 21:00 Miscellaneous Medication SC Not Given HS [facility] Insulin Human Lispro 0 units 01/08/20 15:29 01/16/20 12:07 Humalog 300 Units/3 Ml Vial SC 2 unit .MODERATE SLIDING SC PRN Administration Moderate Correctional Scale Sodium Chloride 10 ml 01/09/20 09:00 01/17/20 15:25 Flush - Normal Saline 10 Ml Syringe IVF Not Given Q12HR [facility] - Exam General Appearance: awake alert Eye: anicteric sclera ENT: moist mucosa Neck: supple, no JVD Heart: RRR Respiratory: CTAB, no rales Gastrointestinal: soft Skin: no rashes Psychiatric: normal affect, normal behavior Hosp A/P - Plan -Assessment Hosp A/P (1) Acute on chronic diastolic (congestive) heart failure Code(s): I50.33 - ACUTE ON CHRONIC DIASTOLIC (CONGESTIVE) HEART FAILURE Status: Acute (2) DM2 (diabetes mellitus, type 2) Status: Chronic Qualifiers: Diabetes mellitus group home insulin use: with terminal make up operator use Diabetes mellitus complication status: with kidney complications Diabetes mellitus complication detail: with chronic kidney disease Chronic kidney disease stage: stage 4 (severe) Qualified Code(s): E11.22 - Type 2 diabetes mellitus with diabetic chronic kidney disease; N18.4 - Chronic kidney disease, stage 4 (severe); Z79.4 - terminal make up operator (current) use of insulin (3) GERD (gastroesophageal reflux disease) Code(s): K21.9 - GASTRO-ESOPHAGEAL REFLUX DISEASE WITHOUT ESOPHAGITIS Status: Chronic (4) HTN (hypertension) Code(s): I10 - ESSENTIAL (PRIMARY) HYPERTENSION Status: Chronic Qualifiers: Hypertension type: essential hypertension Qualified Code(s): I10 - Essential (primary) hypertension (5) CKD (chronic kidney disease) Code(s): N18.9 - CHRONIC KIDNEY DISEASE, UNSPECIFIED Status: Acute Qualifiers: Chronic kidney disease stage: stage 5, not on chronic dialysis Qualified Code(s): N18.5 - Chronic kidney disease, stage 5 (6) Anemia Code(s): D64.9 - ANEMIA, UNSPECIFIED Status: Chronic Qualifiers: Anemia type: due to chronic kidney disease Chronic kidney disease stage: stage 5, not on chronic dialysis Qualified Code(s): N18.5 - Chronic kidney disease, stage 5; D63.1 - Anemia in chronic kidney disease - Plan Consult GI service regarding dysphagia. Patient to go for dialysis per nephrology service. Patient has dialysis chair. Anemia stable. Patient is on Accu-Cheks and insulin sliding scale. HTN - controlled Ambulate patient
[2020-01-17] MEDS: Insulin Glargine 5 UNITS in Pre-Filled Syringe 1 EACH SC SCH (22:08)
[2020-01-17] MEDS: Atorvastatin Calcium 10 MG TAB PO SCH (22:08)
[2020-01-18] MEDS: Cyanocobalamin (Vitamin B-12) 1,000 MCG TAB PO SCH (10:02)
[2020-01-18] MEDS: Apixaban 2.5 MG TAB PO SCH ×2 (10:03→21:04)
[2020-01-18] MEDS: Furosemide 40 MG TAB PO SCH (10:03)
[2020-01-18] MEDS: Aspirin Chewable 81 MG TAB PO SCH (10:03)
[2020-01-18] MEDS: Carvedilol 6.25 MG TAB PO SCH ×2 (10:03→18:48)
[2020-01-18] MEDS: Amiodarone 200 MG TAB PO SCH (10:03)
[2020-01-18] MEDS: Ferrous Sulfate 325 MG TAB PO SCH ×2 (10:04→21:05)
[2020-01-18] MEDS ORDERED: Heparin 10,000 UNITS/ 10 ML VIAL ONE (12:48)
[2020-01-18] MEDS: HumaLOG 300 UNITS/3 ML VIAL SC PRN (13:13)
--- NOTE | 2020-01-18 15:29 | PDOC.HOSPP ---
- Subjective Encounter Date: 01/18/20 Encounter Time: 08:30 Subjective: Patient seen for follow-up regarding volume overload. Reports feeling better today. - Objective Vital Signs & Weight: Vital Signs (12 hours) Temp Pulse Resp BP Pulse Ox 01/18/20 11:20 97.9 F 60 24 H 120/56 L 100 01/18/20 07:52 97.9 F 98 20 142/67 H 99 01/18/20 04:00 97.8 F 60 18 123/57 L 99 Weight Admit Weight 143 lb 9 oz Weight 139 lb 1.787 oz I&O: 01/17/20 01/18/20 01/19/20 06:59 06:59 06:59 Intake Total 1350 360 Output Total 100 Balance 1250 360 Result Diagrams: 01/12/20 07:38 01/14/20 04:09 Additional Labs: Accuchecks 01/18/20 01/18/20 01/17/20 11:14 06:59 20:04 POC Glucose 197 H 105 H 255 H 01/17/20 16:28 POC Glucose 185 H I reviewed patient's labs and MAR EKG Reviewed by me: Yes (Telemetry: V paced rhythm) Hospitalist ROS - Review of Systems Cardiovascular: denies: chest pain, palpitations, orthopnea, paroxysmal noc. dyspnea, edema, light headedness Gastrointestinal: denies: nausea, vomiting, abdominal pain, diarrhea, constipation, melena, hematochezia - Medication Medications: Active Medications Generic Name Dose Route Start Last Admin Trade Name Freq PRN Reason Stop Dose Admin Hydrocodone Bitart/Acetaminophen 1 tab 01/08/20 15:29 01/15/20 21:14 Hydrocodone/Acetaminophen 5/325 Mg Tablet PO 1 tab Q4H PRN Administration Moderate Pain (4-6) Amiodarone HCl 200 mg 01/09/20 09:00 01/18/20 10:03 Amiodarone 200 Mg Tab PO 200 mg DAILY [facility] Administration Apixaban 2.5 mg 01/14/20 21:00 01/18/20 10:03 Apixaban 2.5 Mg Tab PO 2.5 mg BID [facility] Administration Aspirin 81 mg 01/09/20 09:00 01/18/20 10:03 Aspirin Chewable 81 Mg Tab PO 81 mg DAILY [facility] Administration Atorvastatin Calcium 10 mg 01/08/20 21:00 01/17/20 22:08 Atorvastatin Calcium 10 Mg Tab PO 10 mg HS [facility] Administration Carvedilol 6.25 mg 01/08/20 17:00 01/18/20 10:03 Carvedilol 6.25 Mg Tab PO 6.25 mg BID-WM [facility] Administration Cyanocobalamin 5,000 mcg 01/09/20 09:00 01/18/20 10:02 Cyanocobalamin (Vitamin B-12) 1,000 Mcg Tab PO 5,000 mcg DAILY [facility] Administration Ferrous Sulfate 325 mg 01/14/20 21:00 01/18/20 10:04 Ferrous Sulfate 325 Mg Tab PO 325 mg BID [facility] Administration Furosemide 40 mg 01/12/20 07:30 01/18/20 10:03 Furosemide 40 Mg Tab PO 40 mg DAILY-AC [facility] Administration Insulin Glargine 5 units/ 0.05 mls @ 0 mls/hr 01/12/20 21:00 01/17/20 22:08 Miscellaneous Medication SC 0.05 mls HS [facility] Administration Insulin Human Lispro 0 units 01/08/20 15:29 01/18/20 13:13 Humalog 300 Units/3 Ml Vial SC 2 unit .MODERATE SLIDING SC PRN Administration Moderate Correctional Scale Insulin Human Lispro 0 units 01/08/20 15:29 01/17/20 22:11 Humalog 300 Units/3 Ml Vial SC 3 unit .BEDTIME SLIDING SC PRN Administration Bedtime Correctional Scale Pantoprazole Sodium 40 mg 01/18/20 09:00 01/18/20 10:03 Pantoprazole 40 Mg Tab PO 40 mg DAILY [facility] Administration Sodium Chloride 10 ml 01/09/20 09:00 01/18/20 10:04 Flush - Normal Saline 10 Ml Syringe IVF 10 ml Q12HR [facility] Administration - Exam General Appearance: awake alert Eye: anicteric sclera Neck: supple Heart: RRR Respiratory: CTAB Gastrointestinal: soft, non-tender Extremities: 2+ LE edema Skin: no rashes Psychiatric: normal affect, normal behavior Hosp A/P - Plan -Assessment Hosp A/P (1) Acute on chronic diastolic (congestive) heart failure Code(s): I50.33 - ACUTE ON CHRONIC DIASTOLIC (CONGESTIVE) HEART FAILURE Status: Acute (2) DM2 (diabetes mellitus, type 2) Status: Chronic Qualifiers: Diabetes mellitus intermission coordinator insulin use: with [facility] use Diabetes mellitus complication status: with kidney complications Diabetes mellitus complication detail: with chronic kidney disease Chronic kidney disease stage: stage 4 (severe) Qualified Code(s): E11.22 - Type 2 diabetes mellitus with diabetic chronic kidney disease; N18.4 - Chronic kidney disease, stage 4 (severe); Z79.4 - terminal gauger supervisor (current) use of insulin (3) GERD (gastroesophageal reflux disease) Code(s): K21.9 - GASTRO-ESOPHAGEAL REFLUX DISEASE WITHOUT ESOPHAGITIS Status: Chronic (4) HTN (hypertension) Code(s): I10 - ESSENTIAL (PRIMARY) HYPERTENSION Status: Chronic Qualifiers: Hypertension type: essential hypertension Qualified Code(s): I10 - Essential (primary) hypertension (5) CKD (chronic kidney disease) Code(s): N18.9 - CHRONIC KIDNEY DISEASE, UNSPECIFIED Status: Acute Qualifiers: Chronic kidney disease stage: stage 5, not on chronic dialysis Qualified Code(s): N18.5 - Chronic kidney disease, stage 5 (6) Anemia Code(s): D64.9 - ANEMIA, UNSPECIFIED Status: Chronic Qualifiers: Anemia type: due to chronic kidney disease Chronic kidney disease stage: stage 5, not on chronic dialysis Qualified Code(s): N18.5 - Chronic kidney di sease, stage 5; D63.1 - Anemia in chronic kidney disease - Plan Appreciate GI service input. Patient going to be dialyzed today. Patient has dialysis chair. Anemia stable. Continue Accu-Cheks and insulin sliding scale. HTN - controlled Ambulate patient Family updated by bedside.
[2020-01-18] MEDS: Atorvastatin Calcium 10 MG TAB PO SCH (21:04)
[2020-01-18] MEDS: Insulin Glargine 5 UNITS in Pre-Filled Syringe 1 EACH SC SCH (21:05)
[2020-01-19] MEDS: Carvedilol 6.25 MG TAB PO SCH ×2 (08:59→16:09)
[2020-01-19] MEDS: Apixaban 2.5 MG TAB PO SCH ×2 (09:00→20:35)
[2020-01-19] MEDS: Furosemide 40 MG TAB PO SCH (09:00)
[2020-01-19] MEDS: Ferrous Sulfate 325 MG TAB PO SCH ×2 (09:00→20:36)
[2020-01-19] MEDS: Aspirin Chewable 81 MG TAB PO SCH (09:00)
[2020-01-19] MEDS: Amiodarone 200 MG TAB PO SCH (09:00)
[2020-01-19] MEDS: Cyanocobalamin (Vitamin B-12) 1,000 MCG TAB PO SCH (09:00)
[2020-01-19] MEDS: HumaLOG 300 UNITS/3 ML VIAL SC PRN (11:29)
--- NOTE | 2020-01-19 18:10 | PDOC.HOSPP ---
- Subjective Encounter Date: 01/19/20 Encounter Time: 11:30 Subjective: Patient seen for follow-up regarding volume overload. Reports feeling better today. - Objective Vital Signs & Weight: Vital Signs (12 hours) Temp Pulse Resp BP Pulse Ox 01/19/20 15:53 98.4 F 60 22 H 135/62 99 01/19/20 12:00 95 01/19/20 10:50 97.9 F 62 20 134/58 L 99 01/19/20 08:00 100 01/19/20 07:45 97.8 F 60 18 121/87 100 Weight Admit Weight 143 lb 9 oz Weight 138 lb 3.677 oz I&O: 01/18/20 01/19/20 01/20/20 06:59 06:59 06:59 Intake Total 360 1250 720 Output Total 875 200 Balance 360 375 520 Result Diagrams: 01/12/20 07:38 01/14/20 04:09 Additional Labs: Accuchecks 01/19/20 01/19/20 01/19/20 16:16 11:07 05:04 POC Glucose 113 H 217 H 105 H 01/18/20 19:49 POC Glucose 171 H Labs and MAR reviewed by me EKG Reviewed by me: Yes (Electronic V paced rhythm on telemetry) Hospitalist ROS - Review of Systems Gastrointestinal: denies: nausea, vomiting, abdominal pain, diarrhea, constipation, melena, hematochezia, other Neurological: denies: weakness, numbness, incoordination, change in speech, confusion, seizures - Medication Medications: Active Medications Generic Name Dose Route Start Last Admin Trade Name Freq PRN Reason Stop Dose Admin Amiodarone HCl 200 mg 01/09/20 09:00 01/19/20 09:00 Amiodarone 200 Mg Tab PO 200 mg DAILY [facility] Administration Apixaban 2.5 mg 01/14/20 21:00 01/19/20 09:00 Apixaban 2.5 Mg Tab PO 2.5 mg BID [facility] Administration Aspirin 81 mg 01/09/20 09:00 01/19/20 09:00 Aspirin Chewable 81 Mg Tab PO 81 mg DAILY [facility] Administration Atorvastatin Calcium 10 mg 01/08/20 21:00 01/18/20 21:04 Atorvastatin Calcium 10 Mg Tab PO 10 mg HS [facility] Administration Carvedilol 6.25 mg 01/08/20 17:00 01/19/20 16:09 Carvedilol 6.25 Mg Tab PO 6.25 mg BID-WM [facility] Administration Cyanocobalamin 5,000 mcg 01/09/20 09:00 01/19/20 09:00 Cyanocobalamin (Vitamin B-12) 1,000 Mcg Tab PO 5,000 mcg DAILY [facility] Administration Ferrous Sulfate 325 mg 01/14/20 21:00 01/19/20 09:00 Ferrous Sulfate 325 Mg Tab PO 325 mg BID [facility] Administration Furosemide 40 mg 01/12/20 07:30 01/19/20 09:00 Furosemide 40 Mg Tab PO 40 mg DAILY-AC [facility] Administration Insulin Glargine 5 units/ 0.05 mls @ 0 mls/hr 01/12/20 21:00 01/18/20 21:05 Miscellaneous Medication SC 0.05 mls HS [facility] Administration Insulin Human Lispro 0 units 01/08/20 15:29 01/19/20 11:29 Humalog 300 Units/3 Ml Vial SC 4 unit .MODERATE SLIDING SC PRN Administration Moderate Correctional Scale Insulin Human Lispro 0 units 01/08/20 15:29 01/17/20 22:11 Humalog 300 Units/3 Ml Vial SC 3 unit .BEDTIME SLIDING SC PRN Administration Bedtime Correctional Scale Pantoprazole Sodium 40 mg 01/18/20 09:00 01/19/20 09:00 Pantoprazole 40 Mg Tab PO 40 mg DAILY [facility] Administration Sodium Chloride 10 ml 01/09/20 09:00 01/19/20 09:01 Flush - Normal Saline 10 Ml Syringe IVF 10 ml Q12HR [facility] Administration - Exam General Appearance: awake alert ENT: normocephalic atraumatic Neck: supple Heart: RRR Respiratory: CTAB Gastrointestinal: soft, no palpable masses Psychiatric: normal affect, normal behavior Hosp A/P - Plan -Assessment Hosp A/P (1) Acute on chronic diastolic (congestive) heart failure Code(s): I50.33 - ACUTE ON CHRONIC DIASTOLIC (CONGESTIVE) HEART FAILURE Status: Acute (2) DM2 (diabetes mellitus, type 2) Status: Chronic Qualifiers: Diabetes mellitus roasterman insulin use: with roasterman use Diabetes mellitus complication status: with kidney complications Diabetes mellitus complication detail: with chronic kidney disease Chronic kidney disease stage: stage 4 (severe) Qualified Code(s): E11.22 - Type 2 diabetes mellitus with diabetic chronic kidney disease; N18.4 - Chronic kidney disease, stage 4 (severe); Z79.4 - shelter (current) use of insulin (3) GERD (gastroesophageal reflux disease) Code(s): K21.9 - GASTRO-ESOPHAGEAL REFLUX DISEASE WITHOUT ESOPHAGITIS Status: Chronic (4) HTN (hypertension) Code(s): I10 - ESSENTIAL (PRIMARY) HYPERTENSION Status: Chronic Qualifiers: Hypertension type: essential hypertension Qualified Code(s): I10 - Essential (primary) hypertension (5) CKD (chronic kidney disease) Code(s): N18.9 - CHRONIC KIDNEY DISEASE, UNSPECIFIED Status: Acute Qualifiers: Chronic kidney disease stage: stage 5, not on chronic dialysis Qualified Code(s): N18.5 - Chronic kidney disease, stage 5 (6) Anemia Code(s): D64.9 - ANEMIA, UNSPECIFIED Status: Chronic Qualifiers: Anemia type: due to chronic kidney disease Chronic kidney disease stage: stage 5, not on chronic dialysis Qualified Code(s): N18.5 - Chronic kidney disease, stage 5; D63.1 - Anemia in chronic kidney disease - Plan Patient has been initiated on hemodialysis during his hospitalization. Blood sugars are reasonably controlled. Check a.m. labs. Patient has dialysis chair available. Discharge when okay with nephrology service.
[2020-01-19] MEDS: Insulin Glargine 5 UNITS in Pre-Filled Syringe 1 EACH SC SCH (20:36)
[2020-01-19] MEDS: Atorvastatin Calcium 10 MG TAB PO SCH (20:36)
[2020-01-20 04:49] LABS: #Eosinphils 0.2 thou/uL (0.0-0.7); #Monocytes 0.8 thou/uL (0.11-0.59); #Neutrophils 3.8 thou/uL (1.40-6.50); %Basophils 0.1 % (0.0-1.0); %Eosinophils 3.7 % (0.0-10.0); %Lymphocytes 17.6 % (21.0-51.0); %Monocytes 14.5 % (0.0-10.0); %Neutrophils 64.2 % (42.0-75.0); Hemoglobin 9.2 g/dL (12.0-16.0); Mean Corpuscular HGB CONC 33.2 g/dL (32.0-36.0); Mean Corpuscular Hemoglobin 32.2 pg (27.0-31.0); Mean Corpuscular Volume 96.9 fL (78.0-98.0); Mean Platelet Volume 7.4 fL (7.4-10.4); Platelet Count 253 thou/uL (130-400); RBC Distribution Width 13.8 % (11.5-14.5); Red Blood Cell (RBC) Count 2.87 mill/uL (4.20-5.40); White Blood Cell (WBC) Count 5.8 thou/uL (4.8-10.8)
[2020-01-20 05:10] LABS: Anion Gap 13 mmol/L (10-20); BUN (Urea Nitrogen) 25 mg/dL (9.8-20.1); Calc. Creatinine Clearance 18 mL/min (70-130); Calcium 7.7 mg/dL (7.8-10.44); Carbon Dioxide 25 mmol/L (23-31); Chloride 102 mmol/L (98-107); Glucose 89 mg/dL (83-110); Potassium 3.3 mmol/L (3.5-5.1); Sodium 137 mmol/L (136-145)
[2020-01-20] MEDS: Carvedilol 6.25 MG TAB PO SCH (08:55)
[2020-01-20] MEDS: Aspirin Chewable 81 MG TAB PO SCH (08:55)
[2020-01-20] MEDS: Apixaban 2.5 MG TAB PO SCH (08:55)
[2020-01-20] MEDS: Amiodarone 200 MG TAB PO SCH (08:55)
[2020-01-20] MEDS: Ferrous Sulfate 325 MG TAB PO SCH (08:55)
[2020-01-20] MEDS: Cyanocobalamin (Vitamin B-12) 1,000 MCG TAB PO SCH (08:55)
[2020-01-20] MEDS: Furosemide 40 MG TAB PO SCH (08:55)
[2020-01-20 11:31] VITALS: BP 132/60; TEMP 97.8
--- NOTE | 2020-01-20 13:29 | PDOC.DS.DS ---
Provider - Provider Date of Admission: 01/08/20 15:30 Date of Discharge: 01/20/20 Admitting Provider: Krystin Iraheta Consultations: Cardiology (Dr. Naranjo), Gastroentrology (Dr. Treadwell), General Surgery (Dr. Holley), Nephrology (Dr. Estrada) Primary Care Physician: Cristian Martinez MD Course - Hospital Course Hospital Course: Discharge diagnosis: 1. Acute on chronic diastolic congestive heart failure NYHA class III 2. Demand ischemia 3. End-stage renal disease needing dialysis 4. Intermittent dysphagia, likely secondary to esophageal stricture/hiatal hernia 5. Hypokalemia 6. COVID-19 PCR test negative Hospital course: Patient is a pleasant 89-year-old lady who was admitted to the hospital on January 08, 2020 for CHF exacerbation. She was seen by cardiology service. She also had elevated troponins which are felt to be secondary to demand ischemia and chronic kidney disease. She was recommended conservative management. She was seen by general surgery service. On January 13, she underwent placement of tunneled hemodialysis catheter with ultrasound and fluoroscopic guidance in the right arm Marek AV fistula placement. She was initiated on hemodialysis. She improved symptomatically. She was also seen by gastroenterology service for intermittent dysphagia. The recommended PPI and possible follow-up as outpatient. Hemodialysis chair was arranged for Monday and Monday. She is being discharged home in a stable condition. Many thanks for allowing me to participate in your patient's care. Please feel free to contact me with any questions or concerns. Discharge destination: Home Total amount of time spent coordinating this discharge: 32 minutes Resuscitation Status: 01/08/20 15:24 Resuscitation Status Routine Resuscitation Status: FULL: Full Resuscitation Discussed with: POA: daughter - Labs Lab Results: 01/20/20 04:31 01/20/20 04:31 Abnormal Lab Results - Last 48 hrs 01/20/20 04:31: Potassium 3.3 L, BUN 25 H, Creatinine 2.07 H, Calcium 7.7 L 01/20/20 04:31: RBC 2.87 L, Hgb 9.2 L, Hct 27.8 L, MCH 32.2 H, Lymphocytes % 17.6 L, Monocytes % 14.5 H, Lymphocytes # 1.0 L, Monocytes # 0.8 H - Physical Exam Vitals: Vital Signs (12 hours) Temp Pulse Resp BP Pulse Ox 01/20/20 11:25 97.8 F 60 20 132/60 100 01/20/20 08:50 98.4 F 62 22 H 135/61 100 01/20/20 03:42 97.8 F 61 15 114/56 L 99 Weight Admit Weight 143 lb 9 oz Weight 140 lb 3.424 oz Physical Exam: The patient was seen and examined on the day of discharge. Patient denies chest pain or shortness of breath. Vital signs are stable. S1 and S2 are heard. Lungs are clear to auscultation bilaterally. Plan - Discharge Medications Prescriptions: Carvedilol [Coreg] 6.25 mg PO BID-WM #60 tab Aspirin [Ecotrin Low Strength] 81 mg PO DAILY #30 tab Pantoprazole [Protonix] 40 mg PO DAILY #30 tab Home Medications: Medication Instructions Recorded Confirmed Type Atorvastatin Calcium [Lipitor] 10 mg PO HS 08/21/15 01/09/20 History Ferrous Sulfate [Feosol] 65 mg PO BID 08/21/15 01/09/20 History Lipase/Protease/Amylase [Creon DR 36,000 units PO DAILY-AC 08/21/15 01/09/20 History 36,000 Units] Amiodarone HCl 200 mg PO DAILY 11/03/16 01/09/20 History Apixaban [Eliquis] 2.5 mg PO BID 11/03/16 01/09/20 History Cyanocobalamin (Vitamin B-12) 5,000 mcg PO DAILY 11/03/16 01/09/20 History [Vitamin B12] Insulin Glargine,Hum.Rec.Anlog 8 unit SQ DAILY 11/03/16 01/09/20 History [Toujeo Solostar] Furosemide [Lasix] 40 mg PO DAILY-AC #30 tab 11/08/16 01/09/20 Rx glyBURIDE [Glyburide] 5 mg PO ASDIR #0 tablet 11/08/16 01/09/20 Rx Aspirin [Ecotrin Low Strength] 81 mg PO DAILY #30 tab 01/20/20 Rx Carvedilol [Coreg] 6.25 mg PO BID-WM #60 tab 01/20/20 Rx Pantoprazole [Protonix] 40 mg PO DAILY #30 tab 01/20/20 Rx Allergies: Sulfa (Sulfonamide Antibiotics) Allergy (Verified 01/09/20 00:35) Nausea nausea/diarrhea - Discharge Instructions Discharge Instructions:: FOCUS: Transition from Acute Care after Discharge GOAL: Successful transition to care in the community YOUR TASKS: (1) review all information outlined in your discharge packet (2) follow any instructions outlined in your discharge packet (3) contact your primary care provider if you have questions or need additional assistance See patient discharge instruction sheet for detailed teaching. Patient verbal izes understanding of medications and is able to verbalize follow-up care. See Discharge Plan for additional discharge information. Patient secured in private vehicle prior to departure. - Follow up Plan Referrals: [facility] [place] [Other] (Outpatient dialysis scheduled for Monday, , and Saturdays at 5:30 AM. *REMEMBER, YOU ARE SCHEDULED TO START OUTPATIENT DIALYSIS TOMORROW, 2019 AT 0530.* CALL TO CONFIRM. ) [facility] -[facility] [Outside] - 7 Days (Your doctor has ordered outpatient cardiac rehab for you to begin within 1-2 weeks after you go home from the hospital. The location nearest to you is the [facility]. The front office in [facility] [place] [facility] will call you in 3-5 days to get you scheduled for your evaluation. If you do not receive a call, please reach out to them at [phone] and request an appointment. Should you have any trouble or need assistance, please call the cardiac rehab main line in [place] at [phone]) [facility] [Outside] (Currently on Home Health Services.) Lyubov Holley MD [Active] - 2-3 Weeks Cristian Martinez MD [Primary Care Provider] - 3 Days (PLEASE CALL AND SCHEDULE AN APPOINTMENT. ) Luigi Estrada MD [Active] - (FOLLOW UP WITH DR ESTRADA AT THE DIALYSIS CLINIC) Demetri Treadwell MD [Active] - 2-3 Weeks Disposition: HOME Quality - Care Measures CORE MEASURES:: HF - Stroke/TIA Did you prescribe antithrombotic therapy?: Yes Did you prescribe anticoagulant for A Fib/Flutter?: Yes Did you prescribe a statin medication?: Yes
== END 2020-01-20 16:07 | disposition home health service (06) | DRG 264 ==
LOC: ERS 13:48 → ERHOLD 15:30 → 2NO 23:59
PROVIDERS: ADMIT Internal Medicine Cardiovascular Disease; ATTEND Internal Medicine
PROC: 031B0ZF Bypass Right Radial Artery to Lower Arm Vein, Open Approach (ICD-10-PCS; 2020-01-14)
PROC: 0JH60XZ Insertion of Tunneled Vascular Access Device into Chest Subcutaneous Tissue and Fascia, Open Approach (ICD-10-PCS; 2020-01-14)
PROC: 02HV33Z Insertion of Infusion Device into Superior Vena Cava, Percutaneous Approach (ICD-10-PCS; 2020-01-14)
PROC: B518ZZA Fluoroscopy of Superior Vena Cava, Guidance (ICD-10-PCS; 2020-01-14)
PROC: B548ZZA Ultrasonography of Superior Vena Cava, Guidance (ICD-10-PCS; 2020-01-14)
PROC: 5A1D70Z Performance of Urinary Filtration, Intermittent, Less than 6 Hours Per Day (ICD-10-PCS; principal; 2020-01-16)
DX: I13.2 Hypertensive heart and chronic kidney disease with heart failure and with stage 5 chronic kidney disease, or end stage renal disease (principal); I50.33 Acute on chronic diastolic (congestive) heart failure; N18.6 End stage renal disease; Z20.828 Contact with and (suspected) exposure to other viral communicable diseases; Z23 Encounter for immunization; J96.01 Acute respiratory failure with hypoxia; I24.8 Other forms of acute ischemic heart disease; K44.9 Diaphragmatic hernia without obstruction or gangrene; K22.2 Esophageal obstruction; E87.6 Hypokalemia; E11.22 Type 2 diabetes mellitus with diabetic chronic kidney disease; M19.90 Unspecified osteoarthritis, unspecified site; Z96.653 Presence of artificial knee joint, bilateral; E78.5 Hyperlipidemia, unspecified; M40.209 Unspecified kyphosis, site unspecified; I48.0 Paroxysmal atrial fibrillation; I34.0 Nonrheumatic mitral (valve) insufficiency; D63.1 Anemia in chronic kidney disease; K21.9 Gastro-esophageal reflux disease without esophagitis; I27.20 Pulmonary hypertension, unspecified; Z95.0 Presence of cardiac pacemaker; Z79.899 Other long term (current) drug therapy; Z79.01 Long term (current) use of anticoagulants; Z79.4 Long term (current) use of insulin; Z88.0 Allergy status to penicillin; Z90.710 Acquired absence of both cervix and uterus
CPT/HCPCS: 36415; 36416; 36600; 71045; 80048; 80053; 80069; 82553; 82728; 82805; 83540; 83880; 84443; 84484; 85025; 85046; 86580; 86704; 86705; 86706; 86707; 86803; 87340; 87350; 87536; 87635; 90471; 90662; 90935; 93005; 93010; 93798; 93970; 96374; 97139; C1752; G0008; G0257; J0360; J0690; J1642; J1644; J1815; J1940; J2370; J2704; J2720; J3490; Q9967; S0020; U0003

== ENCOUNTER 2020-02-27 09:31 | Day surgery (SDC) | payer MEDICARE, BC ==
[2020-02-26 12:33] VITALS: BMI 20.3
--- NOTE | 2020-02-27 10:39 | SPC ---
Sonogram Limited right arm HISTORY: Poor maturation of right arm dialysis fistula. Radial artery to distal cephalic vein fistula 01/14/2020. FINDINGS: Exam was originally scheduled as a dialysis fistulogram. The cephalic vein was not well vis ualized and unable to be palpated. Sonographic evaluation of the arm was performed. At the surgical site, an arteriovenous anastomosis i s seen, to a very small superficial vein which immediately branches. The veins are no larger than 2 mm. A normal cephalic vein is not visible. Fistulogram, therefore, is unable to be performed. Findings were discussed with Dr. Holley. Patient will be scheduled for bilateral arm vein mapping.
[2020-02-27] MEDS ORDERED: Heparin 1,000 UNITS/ML VIAL ONE (11:21)
--- NOTE | 2020-02-27 12:19 | ULT ---
EXAM: Vein mapping for dialysis access HISTORY: End-stage renal disease. Dialysis access TECHNIQUE: Multiplanar grayscale and color Doppler images were obtained in a bilateral upper extremit y venous ultrasound. Spectral analysis of the Doppler waveforms of the vessels were performed. FINDINGS: The bilateral internal jugular veins and subclavian veins are patent without evidence of th rombus. Right brachial artery 5.4 mm Right radial artery 2.8 mm Right ulnar artery 1.8 mm Left brachial artery 4.2 mm Left radial artery 2.2 mm Left ulnar artery 1.9 mm RIGHT CEPHALIC VEIN in millimeters Not seen -- Shoulder 1.2 -- Upper arm 0.7 -- Mid upper arm 0.8-- Just proximal to the elbow 0.7 -- Just distal to the elbow 0.6 -- Forearm 1.1 -- Wrist RIGHT BASILIC VEIN in millimeters 2.8 -- Shoulder 2.7 -- Upper arm 2.0 -- Mid upper arm 2.7 -- Just proximal to the elbow 1.1 -- Just distal to the elbow 1.0 -- Forearm 0.8 -- Wrist LEFT CEPHALIC VEIN in millimeters 1.7 -- Shoulder 2.1 -- Upper arm 1.9 -- Mid upper arm 2.1 -- Just proximal to the elbow 1.2 -- Just distal to the elbow 1.1 -- Forearm 0.8 -- Wrist LEFT BASILIC VEIN in millimeters 2.9 -- Shoulder 1 9 -- Upper arm 3.0 -- Mid upper arm 1.3 -- Just proximal to the elbow 1.1 -- Just distal to the elbow 1.0 -- Forearm 1.3 -- Wrist IMPRESSION: Vein mapping for dialysis access as above
== END 2020-02-27 10:30 | disposition still patient (30) ==
LOC: SPEC 09:31
PROVIDERS: ATTEND Surgery
DX: T82.590A Other mechanical complication of surgically created arteriovenous fistula, initial encounter (principal); I13.2 Hypertensive heart and chronic kidney disease with heart failure and with stage 5 chronic kidney disease, or end stage renal disease; E11.22 Type 2 diabetes mellitus with diabetic chronic kidney disease; N18.6 End stage renal disease; I50.30 Unspecified diastolic (congestive) heart failure; D63.1 Anemia in chronic kidney disease; I44.2 Atrioventricular block, complete; E78.5 Hyperlipidemia, unspecified; M19.90 Unspecified osteoarthritis, unspecified site; Z79.01 Long term (current) use of anticoagulants; Z79.4 Long term (current) use of insulin; Z79.899 Other long term (current) drug therapy; Z88.2 Allergy status to sulfonamides; Z99.2 Dependence on renal dialysis; I77.2 Rupture of artery
CPT/HCPCS: 76937; 93970; J1644